=== PATIENT | female | born 1955 | race Caucasian/White ===

== ENCOUNTER → 2023-05-06 | Outpatient (CLI) | payer MEDICARE, SELFPAY ==
--- NOTE | 2023-05-06 09:14 | RAD_ITS ---
INDICATION: Low back pain potentially associated with radiculopathy EXAMINATION/TECHNIQUE: X-RAY - XR Spine Lumbar Comp W/ Bending 8Views COMPARISON: FINDINGS: VERTEBRAE: Degenerative changes with endplate spurring. Status post surgical fusion at L5-S1. No fracture. Grade 1 spondylolisthesis at L4-5. Preservation of the normal lumbar lordosis. Narrowed L4-5 and L5-S1 disc space heights. DISCS: Disc spaces are maintained. INCLUDED ABDOMEN: Included bowel gas pattern is non-obstructive. Calcified aorta. RAD/L/S Spine w Bend Min 6 Vw IMPRESSION: Degenerative and postsurgical changes of the lumbar column. Electronically Signed: Arthur Day DO at 19:58 EDT Reading Location ID and State: [facility] / [place] Tel [phone], Service support ,
[2023-05-06 09:19] LABS: Absolute Lymphocyte Count 3.14 X10^3/uL (0.83-4.51); Absolute Neutrophil Count 8.1 X10^3/uL (2.0-7.7); Basophil# 0.04 X10^3/uL; Basophil% 0.3 % (0-1); Eosinophil# 0.05 X10^3/uL; Eosinophils% 0.4 % (0-5); Hematocrit 42.4 % (37-47); Hemoglobin 13.8 g/dL (12.0-15.0); Lymphocyte # 3.14 X10^3/ul (0.83-4.51); Lymphocyte % 25.1 % (19-41); Mean Corp Hgb Conc 32.5 g/dL (32-36); Mean Corpuscular Hgb 31.8 pg (27.0-32.0); Mean Corpuscular Volume 97.7 fL (81-99); Mean Platelet Vol. 10.1 fl (6.2-12.0); Monocyte# 1.06 X10^3/uL; Monocyte% 8.5 % (0-10); NRBC Flagged by Analyzer 0 % (0-5); Neutrophil # 8.08 X10^3/uL (2.7-7.7); Neutrophil % 64.6 % (47-70); Platelet Count 411 K/mm3 (150-450); RBC Distribution Width CV 12.5 % (11.6-14.6); RBC Distribution Width SD 45.2 fl (35.1-43.9); Red Blood Count 4.34 M/mm3 (4.2-5.4); White Blood Count 12.5 K/mm3 (4.4-11.0)
[2023-05-06 09:42] LABS: Microalbumin,Random Urine 8.6 mg/L (NO RANGE EST.); Microalbumin:Creatinine Ratio 11.6 mg/g CRE (<30 mg/g CRE)
[2023-05-06 10:28] LABS: ALB/GLOB Ratio 0.9 RATIO (0.9-2.4); AST(SGOT) 16 U/L (15-37); Alanine Aminotransfer ALT/SGPT 30 U/L (13-56); Albumin, Serum 3.6 g/dL (3.2-5.0); Alkaline Phosphatase 82 U/L (45-117); Anion Gap 2 (5-15); BUN 15 mg/dL (7-18); BUN/Creat Ratio 20.9 RATIO (10-20); Calcium,Total 9.4 mg/dL (8.5-10.1); Chloride 106 mmol/L (98-107); Cholesterol 281 mg/dL (200); Creatinine, Serum 0.72 mg/dL (0.55-1.02); EST Glomerular Filtration Rate 86 mL/min (>60); Est Glom Filt Rate - Afr Amer 104 mL/min (>60); Glucose 151 mg/dL (74-106); High Density Lipoprotein 52 mg/dL; Potassium 3.8 mmol/L (3.5-5.1); Protein, Total 7.6 g/dL (6.4-8.2); Sodium Level 140 mmol/L (136-145); Thyroid Stim Hormone (TSH) 3.48 uIU/mL (0.358-3.74); Triglycerides 163 mg/dL; Very Low Density Lipoprotein 33 mg/dL (5-40)
== END | disposition home or self-care (01) ==
PROVIDERS: PCP Internal Medicine; Referring Provider Internal Medicine; Visit Provider Internal Medicine
DX: R73.09 Other abnormal glucose (principal); E78.5 Hyperlipidemia, unspecified; E03.9 Hypothyroidism, unspecified; M54.50 Low back pain, unspecified
CPT/HCPCS: 36415; 72114; 80053; 80061; 82043; 82570; 84443; 85025

== ENCOUNTER 2023-06-17 13:00 | Outpatient (RCR) | payer MEDICARE, SELFPAY ==
--- NOTE | 2023-05-22 16:04 | HP.PTEVAL ---
Patient's Visit Information Visit Information Visit Information: CHANDU TAYLOR is a 67 year old F referred to Physical Therapy by Dr. Nohelia Romero DO with a diagnosis of LBP with Radic (previous L5/S1 fusion) and L4/L5 spondy. Date of Evaluation: 05/22/23 Physical Therapist: MONIKA Segura Visit Plan Frequency: 2x /Week Duration: 2 Months Plan: 2X/ week for 8 weeks for AT for Gentle neutral spine core stability, L LE strengthening, gait training with HEP. (flexion seems to relieve her foot sx) ++++Pt is allergic to laytex Subjective Subjective: Pt is having sharp burn pain on top of L foot to the ankle and up to the L calf (calf feels like there is a vice on it). She is on Gabapetin and is sleeping a little better. It started when she was sick one night and passed out on the toilet leaning to one side and she woke up with extreme pain in the L hip. She has used the massage gun on it and gotten massages weekly. She can not walk very long. She just got back from vacation with her son and she was on the go and could not keep up. She has a golf cart on 3 acres. She can take care of her yard but at her own pace. X-ray showed DDD changes and spurs on the next level up from where she had surgery years ago. She is very active and she can go places and do things if she can sit. She did have episodes where her L foot was getting red but does not do that any more. She is sleeping with gabapetin. If she lays on her L side her foot will burn. Had surgery on the L ankle years ago. She wears a knee brace at times and she can walk better. She hangs on a cart when she is in the grocery store. Dr Romero wants to do an MRI. X-ray shows grade 1 spondylolisthesis at L4/L5 and L5/S1 is fused Pain back pain: Pain Intensity (Out of 10): 4 L ankle pain: Pain Intensity (Out of 10): 4 Objective Objective: Standing heel and toe raises: pt has decrease ROM with DF and likes to stick buttocks out. She does well with PF standing holding onto a table with balance. Gait: she has to take small steps. Bridge: able to do 3/4 normal ROM Patellar R 1+/3 and L 2+/3 LE MMT: R hip flex 12.7 and L hip flex 6.6 R knee ext 14 and L knee ext 8# R knee flex 8.4 and L 4.6 R hip abd 15.2 and L hip abd 10.2 Pt L ankle burning went away with [facility] AROM: Flexion 100% Ext 25% with increase pain Sb B 75% Rot L 50% and R 75% Balance/Special Test Scores Oswestry Low Back Score: 13 Goals Goal 1:: I HEP Goal Time Frame: 4-6 Weeks Goal 2:: Decrease back pain by 50% Goal Time Frame: 4-6 Weeks Goal 3:: Increase L LE strength (at time of eval: LE MMT: R hip flex 12.7 and L hip flex 6.6 R knee ext 14 and L knee ext 8# R knee flex 8.4 and L 4.6 R hip abd 15.2 and L hip abd 10.2) Goal Time Frame: 4-6 Weeks Goal 4:: Be able to walk with bigger steps Goal Time Frame: 4-6 Weeks Anticipated Interventions Patient/Client Instruction: Educate patient on: Condition and Plan of Care For the Purpose of:: To decrease pain, To increase ROM, To improve nutrient delivery to tissue, To improve muscle performance and motor function, To improve ability to perform ADL's, To improve performance and independence with ADL's, To decrease level of supervision to perform tasks, To improve gait and locomotor functions, To improve health of tissue, To increase flexibility/ROM, To improve balance, To improve safety with gait and To assume or resume ADL's Therapeutic Exercise to Include: Strength training, Endurance training, Body mechanics, Gait and locomotor training, Neuromotor development, In an aquatic setting, Active ROM and Dynamic Lumbar Stabilization For the Purpose of:: To decrease pain, To increase ROM, To improve nutrient delivery to tissue, To improve muscle performance and motor function, To increase tolerance to activity/condition/position, To improve performance and independence with ADL's, To improve gait and locomotor functions, To improve health of tissue, To decrease soft tissue restriction, To increase flexibility/ROM, To improve balance and To improve safety with gait Functional Training to Include: Gait training For the Purpose of:: To improve gait and locomotor functions and To improve safety with gait Text: Thank you for the opportunity to evaluate your patient. For Medicare and Medicare HMO plans, please review the plan of care and approve it. It will need to be FAXED BACK to us at [phone] for Medicare purposes. For Medicare only, by signing this I certify the plan of care. Please let me know if there are questions or concerns regarding this plan of care. Physician Signature: Date:
--- NOTE | 2023-06-17 13:32 | HP.PTDCSUM ---
Discharge Summary D/C summary: It has been my pleasure to treat CHANDU TAYLOR referred by Dr. Nohelia Romero DO, with the diagnosis of LBP with Radic (previous L5/S1 fusion) and L4/L5 spondy for a total of 7 visit(s). Discharge Date: 06/17/23 Please see the following information for a summary of their discharge status. Subjective Subjective: It helped to loosen her up and some with the pain. She is off the Gabepetin and she did not like that and finally feels that her head is back to where it was. She feels that she is ready to go on her own. She has access in a pool to do her exercises. She has a sheet of exercises. She does stretches in the morning and it helps Pain back pain: Pain Intensity (Out of 10): 3 L ankle pain: Pain Intensity (Out of 10): 4 Objective Objective/Function: LE MMT: R hip flex 14.4 and L hip flex 12.6 R knee ext 14 and L knee ext 9.4 R knee flex 10 and L 8.6 R hip abd 15.2 and L hip abd 10.2..NT Gait: pt is walking with bigger steps Goals Goal 1:: I HEP Goal Progress: Goal Met Goal 2:: Decrease back pain by 50% Goal Progress: Goal Met Goal 3:: Increase L LE strength (at time of eval: LE MMT: R hip flex 12.7 and L hip flex 6.6 R knee ext 14 and L knee ext 8# R knee flex 8.4 and L 4.6 R hip abd 15.2 and L hip abd 10.2) Goal Progress: Goal Met Goal 4:: Be able to walk with bigger steps Goal Progress: Goal Met Plan Plan: DC PT to I AT program. Pt is only mildly better. Would recommend an MRI since still having radicular sx...prior back surgery. D/C Information Discharge Comments: DC PT to I AT program and back to physician for further diagnostics or referral d/c sentence: If there are questions or concerns regarding this patient's physical therapy, please feel free to call me at [phone]. Thank you for the referral of this patient. Sincerely, Swetha Silva, MPT Balance/Gait/Functional tests Balance/Special Test Scores Oswestry Low Back Score: 19
== END 2023-06-17 14:03 | disposition home or self-care (01) ==
LOC: PT 13:00
PROVIDERS: PCP Internal Medicine; Referring Provider Internal Medicine; Visit Provider Internal Medicine
DX: M47.26 Other spondylosis with radiculopathy, lumbar region (principal); Z98.1 Arthrodesis status
CPT/HCPCS: 97113; 97161; 97530

== ENCOUNTER → 2023-12-02 | Outpatient (CLI) | payer MEDICARE, SELFPAY ==
[2023-12-02 11:01] LABS: Absolute Lymphocyte Count 1.77 X10^3/uL (0.83-4.51); Absolute Neutrophil Count 4.3 X10^3/uL (2.0-7.7); Basophil# 0.04 X10^3/uL; Basophil% 0.6 % (0-1); Eosinophil# 0.13 X10^3/uL; Eosinophils% 1.9 % (0-5); Hematocrit 42.8 % (37-47); Hemoglobin 13.8 g/dL (12.0-15.0); Lymphocyte # 1.77 X10^3/ul (0.83-4.51); Lymphocyte % 25.7 % (19-41); Mean Corp Hgb Conc 32.2 g/dL (32-36); Mean Corpuscular Hgb 31.9 pg (27.0-32.0); Mean Corpuscular Volume 98.8 fL (81-99); Mean Platelet Vol. 10.8 fl (6.2-12.0); Monocyte# 0.64 X10^3/uL; Monocyte% 9.3 % (0-10); NRBC Flagged by Analyzer 0 % (0-5); Neutrophil # 4.28 X10^3/uL (2.7-7.7); Neutrophil % 62.2 % (47-70); Platelet Count 426 K/mm3 (150-450); RBC Distribution Width CV 12.2 % (11.6-14.6); RBC Distribution Width SD 44.5 fl (35.1-43.9); Red Blood Count 4.33 M/mm3 (4.2-5.4); White Blood Count 6.9 K/mm3 (4.4-11.0)
[2023-12-02 11:49] LABS: Microalbumin,Random Urine 8.1 mg/L (NO RANGE EST.); Microalbumin:Creatinine Ratio 10.2 mg/g CRE (<30 mg/g CRE)
[2023-12-02 11:56] LABS: ALB/GLOB Ratio 1.1 RATIO (0.9-2.4); AST(SGOT) 11 U/L (15-37); Alanine Aminotransfer ALT/SGPT 19 U/L (13-56); Albumin, Serum 3.7 g/dL (3.2-5.0); Alkaline Phosphatase 101 U/L (45-117); Anion Gap 3 (5-15); BUN 9 mg/dL (7-18); BUN/Creat Ratio 15.1 RATIO (10-20); Calcium,Total 9.5 mg/dL (8.5-10.1); Chloride 109 mmol/L (98-107); Cholesterol 194 mg/dL (200); EST Glomerular Filtration Rate 106 mL/min (>60); Est Glom Filt Rate - Afr Amer 128 mL/min (>60); Globulin 3.4 g/dL (2.2-4.2); Glucose 99 mg/dL (74-106); High Density Lipoprotein 42 mg/dL; Potassium 4.3 mmol/L (3.5-5.1); Protein, Total 7.1 g/dL (6.4-8.2); Sodium Level 141 mmol/L (136-145); Thyroid Stim Hormone (TSH) 3.32 uIU/mL (0.358-3.74); Triglycerides 119 mg/dL; Very Low Density Lipoprotein 24 mg/dL (5-40)
--- OUTSIDE RECORDS SUMMARY | 2023-12-02 16:10 | XMS RPT_ITS | CCD ---
Author Name Unknown Address [address] [facility] [address] [place] [address] Organization [facility] Care Team Providers Care Extension Work Instructor Name Role Phone Unavailable Unavailable Unavailable Gen, Alcon Orchanian Unavailable Milagros Holder Unavailable Unavailable Milagros Holder Unavailable Unavailable Gen, Alcon Unavailable Unavailable Gen, Alcon Unavailable Unavailable Gen, Alcon Unavailable Unavailable Gen, Alcon Unavailable Unavailable Gen, Alcon Orchanian Primary Care Provider Kianna Daley Primary Care Provider Kianna Daley Primary Care Provider [phone] BismarckTayler Primary Care Provider [phone] [place] Tayler MONET Primary Care Provider [place] Tayler MONET Primary Care Provider ALEXIA, SHAISTA Referring Unavailable ALEXIA, SHAISTA Primary Care Unavailable ALEXIA, SHAISTA Attending Unavailable ALEXIA, SHAISTA Admitting Unavailable ALEXIA, SHAISTA Primary Care Unavailable FLAGLER BEACHTAYELR Admitting Unavailable FLAGLER BEACHTAYLER Primary Care Unavailable Gen, Alcon Orchanian Unavailable Unava ilable Jairo, Shayla Unavailable Unavailable ALEXIA, SHAISTA Attending Unavailable ALEXIA, SHAISTA Primary Care Unavailable ALEXIA, SHAISTA Attending Unavailable ALEXIA, SHAISTA Primary Care Unavailable ALEXIA, SHAISTA Attending Unavailable FLAGLER BEACHTAYLER Primary Care Unavailable ALEXIA, SHAISTA Primary Care Unavailable ALEXIA, SHAISTA Attending Unavailable ALEXIA, SHAISTA Primary Care Unavailable ALEXIA, SHAISTA Attending Unavailable ManElyse trinh Unavailable Unavailable Ms. Elyse Delgado Attending Unavail Dr. Alcon Moore Primary Care U Dr[facility]con Mckay [facility]la Gill Attending Unavailable Nohelia Romero DO Unavailable Heather AMADOR Nohelia Unavailable [phone] Physical Therapy, [facility] Unavailable [phone] Yovany MOTOR BLOCK MECHANIC, Dar Unavailable Unavailable Fast DO, Ginny A Unavailable Matteo, Sarah Unavailable Unavailable Unavailable Unavailable Allergies Allergy Classification Reported Allergen(s) Allergy Type Date of Onset Reaction(s) Facility Angiotensin Converting Enzyme (TEQUILA) Inhibitors (2 sources) Lisinopril Drug Allergy 02-14-20 21 [facility] Work Phone: Aspirin (2 sources) Aspirin Drug Allergy 03-24-20 18 Shortness Of Breath, Itching [facility] Latex (2 sources) Latex Substance Allergy 03-24-20 18 [facility] Macrolides (antibiotic) (2 sources) Erythromycin Drug Allergy 03-24-[address] [facility] NITROFURANTOIN, MACROCRYSTALS / Nitrofurantoin, Monohydrate (2 sources) NITROFURANTOIN, MACROCRYSTALS / Nitrofurantoin, Monohydrate Drug Allergy 12-07-19 20 Rash [facility] NSAIDs (4 sources) Ibuprofen Drug Allergy 03-24-20 18 Swelling [facility] Opioid Agonists (4 sources) Meperidine Drug Allergy 03-24-20 18 GI Intolerance, Shortness Of Breath, Itching, Rash [facility] Penicillins (antibiotic) (2 sources) Amoxicillin Drug Allergy 03-24-[address] [facility] (20 sources) amoxicillin; Translations: [AMOXICILLIN] Drug Allergy 03-24-20 18 [facility] (20 sources) aspirin; Translations: [ASPIRIN] Drug Allergy 03-24-20 18 Shortness Of Breath, Itching [facility] (20 sources) erythromycin; Translations: [ERYTHROMYCIN BASE] Drug Allergy 03-24-20 18 [facility] (20 sources) HYDROmorphone; Translations: [HYDROMORPHONE] Drug Allergy 03-24-20 18 Shortness Of Breath, Itching, Rash [facility] (20 sources) ibuprofen; Translations: [IBUPROFEN] Drug Allergy 03-24-20 18 Swelling [facility] (20 sources) ketorolac; Translations: [KETOROLAC] Drug Allergy 03-24-20 18 [facility] (20 sources) Latex; Translations: [LATEX] Propensity to adverse reactions to drug 03-24-20 Rash [facility] (20 sources) meperidine; Translations: [MEPERIDINE] Drug Allergy 03-24-20 GI Intolerance [facility] (20 sources) NITROFURANTOIN, MACROCRYSTALS / Nitrofurantoin, Monohydrate; Translations: [NITROFURANTOIN MONOHYD/M-CRYST] Drug Allergy 12-07-19 20 [facility] (15 sources) Lisinopril; Translations: [LISINOPRIL] Drug Allergy 02-14-20 [facility] Work Phone: (6 sources) Other; Translations: [OTHER] Propensity to adverse reactions 09-25-20 Swelling [facility] (4 sources) olmesartan; Translations: [OLMESARTAN] Drug Allergy 10-16-19 [facility] (4 sources) Adhesive Tape-Silicones; Translations: [ADHESIVE TAPE-SILICONES] Propensity to adverse reactions to drug 09-05-20 Dermatitis, Itching, Rash, Swelling [facility] (4 sources) Fluoride; Translations: [FLUORIDE] Propensity to adverse reactions to drug 10-16-19 Itching, Other (See Comments), Swelling [facility] (3 sources) Losartan; Translations: [LOSARTAN] Drug Allergy 06-03-20 [facility] (2 sources) Clindamycin Drug Allergy Unknown [facility] (2 sources) HY[facility]Omorphone [facility] (2 sources) Meperidine Drug Allergy Wheezing, Unknown [facility] (2 sources) Morphine [facility]ergy [facility] (2 sources) Pentazocine Drug Allergy Unknown [facility] (2 sources) traMADol Drug Allergy Unknown [facility] (1 source) Gluten Hives [facility] (7 sources) Egg white; Translations: [Egg White] Allergy to substance (finding) [facility] Work Phone: (7 sources) Ketorolac Drug Allergy [facility] Work Phone: (7 sources) Pentazocine Drug Allergy [facility] Work Phone: (7 sources) Shellfish; Translations: [Shellfish] Allergy to substance (finding) [facility] Work Phone: (7 sources) Erythromycins; Translations: [Erythromycins] Allergy to substance (finding) [facility] Work Phone: (7 sources) Iodinated Contrast; Translations: [Iodinated Contrast] Allergy to substance (finding) [facility] Work Phone: (14 sources) Morphine Derivatives; Translations: [Morphine Derivatives] Allergy to substance (finding) [facility]; [facility] Work Phone: Medications Current Medications Medication Drug Class(es) Dates Sig (Normalized) Sig (Original) acetaminophen 325 mg oral tablet (20 sources) take 2 tablets by mouth every six hours as needed for pain acetaminophen (TYLENOL) 325 MG tablet Take 650 mg by mouth every 6 (six) hours as needed for pain. 0 Active albuterol 90 mcg/actuation inhaler (18 sources) Start: 12-06-2020 take 2 puff(s) by inhalation every six hours as needed for wheezing albuterol 90 mcg/actuation inhaler Indications: Asthma, unspecified asthma severity, unspecified whether complicated, unspecified whether persistent Inhale 2 (two) puffs every 6 (six) hours as needed for wheezing . 1 Inhaler 0 12/06/2020 Active Completed/Discontinued Medications Medication Drug Class(es) Dates Sig (Normalized) Sig (Original) acetaminophen 325 mg / HYDROcodone bitartrate 5 mg oral tablet (7 sources) Opioid Agonist Start: 11-14-2006 End: 08-20-2007 take 1-2 tablets by mouth every four hours as needed HYDROCODONE-ACETA MINOPHEN, 5-325MG (Oral Tablet) 1-2 Tablet Q 4hr/PRN for 0 days Quantity: 60 {Tablet} Refills: 0 Ordered: 14-Nov-2006 Amanda Schultz RN Start : 14-Nov-2006 End : 20-Aug-2007 Inactive 200 actuat albuterol 0.09 mg/actuat dry powder inhaler (20 sources) beta2-Adrenergic Agonist Start: 06-12-2023 take 2 puff(s) by inhalation every four hours as needed albuterol sulfate 90 mcg/actuation inhalation Aerosol Powder, Breath Activated 2 (two) puffs q4hr prn for 0 days Quantity: 1 {Unspecified} Refills: 0 Ordered: 12-Jun-2023 Heather AMADOR Nohelia Heather AMADOR Nohelia Start : 12-Jun-2023 Active Comments: dispense one iinhaler Problems Active Problems Problem Classification Problem Date Documented Da te Episodic/Chronic Abdominal pain (20 sources) Pain in pelvis; Translations: [Acute abdominal pain] Resolved: 05-02-2023 05-02-2023 Episodic Allergic reactions (10 sources) Allergy status to penicillin; Translations: [Latex allergy status] Onset: 08-22-2022 06-12-2023 Episodic Anxiety disorders (14 sources) Anxiety; Translations: [Anxiety] 05-02-2023 Chronic Past or Other Problems Problem Classification Problem Date Documented Date Episodic/Chronic Acute bronchitis (3 sources) Acute bronchitis; Translations: [Acute bronchitis] Onset: 08-22-2022 08-22-2022 Episodic Headache; including migraine (20 sources) Headache; Translations: [Headache] Onset: 12-07-2019 12-07-2019 Episodic Other aftercare (1 source) Other detention (current) drug therapy; Translations: [Other intermediate manager (current) drug therapy] Onset: 08-22-2022 Episodic Other connective tissue disease (20 sources) Calcific tendinitis; Translations: [Calcific tendinitis of left shoulder] Onset: 04-09-2018 04-09-2018 Episodic Other connective tissue disease (11 sources) Calcific tendinitis of left shoulder; Translations: [Calcific tendinitis of left shoulder] Onset: 04-09-2018 04-09-2018 Episodic Other ear and sense organ disorders (20 sources) Bilateral tinnitus; Translations: [Tinnitus, bilateral] Onset: 07-20-2019 07-20-2019 Episodic Other ear and sense organ disorders (13 sources) Impacted cerumen of bilateral ears; Translations: [Impacted cerumen, bilateral] Onset: 07-20-2019 07-20-2019 Episodic Other ear and sense organ disorders (1 source) Unspecified acute noninfective otitis externa, bilateral; Translations: [Unspecified acute noninfective otitis externa, bilateral] Onset: 08-22-2022 Episodic Other ear and sense organ disorders (1 source) Otalgia, bilateral; Translations: [Otalgia, bilateral] Onset: 08-22-2022 Episodic Other inflammatory condition of skin (20 sources) Itching of ear; Translations: [Pruritus, unspecified] Onset: 07-20-2019 Resolved: 10-16-2021 07-20-2019 Episodic Other injuries and conditions due to external causes (2 sources) History of falling; Translations: [History of falling] Onset: 11-14-2021 Episodic Other non-traumatic joint disorders (20 sources) Knee pain; Translations: [Pain in unspecified knee] Onset: 06-29-2020 06-29-2020 Episodic Other non-traumatic joint disorders (20 sources) Acute ankle pain; Translations: [Pain in left ankle and joints of left foot] Onset: 06-29-2020 Resolved: 10-16-2021 06-29-2020 Episodic Other skin disorders (20 sources) Excessive sweating; Translations: [Generalized hyperhidrosis] Onset: 04-09-2018 04-09-2018 Episodic Other upper respiratory disease (1 source) Other specified disorders of nose and nasal sinuses; Translations: [Other specified disorders of nose and nasal sinuses] Onset: 08-22-2022 Episodic Other upper respiratory infections (4 sources) Acute maxillary sinusitis; Translations: [Acute maxillary sinusitis, unspecified] Onset: 08-22-2022 Episodic Residual codes; unclassified (1 source) Immunization not carried out for unspecified reason; Translations: [Immunization not carried out for unspecified reason] Onset: 08-22-2022 Episodic Unclassified (18 sources) Patient encounter status; Translations: [Well female exam with routine gynecological exam] Onset: 04-03-2020 Resolved: 06-29-2020 04-03-2020 Unclassified (14 sources) Unspecified Diagnosis Results Test Name Value Interpretation Reference Range Facil ity Vital Signs Date Time Vital Sign Value Performing Clinician Facility 06-12-2023 13:37-0400 Body height 165.1 cm Dar Pedroza LPN [facility] Work Phone: 06-12-2023 13:37-0400 Body mass index (BMI) [Ratio] 29.18 kg/m2 [facility] Work Phone: 06-12-2023 13:37-0400 Body surface area Derived from formula 1.87 m2 [facility] Work Phone: 06-12-2023 13:37-0400 Body temperature 95.7 [degF] [facility] Work Phone: 06-12-2023 13:37-0400 Body weight 79.55 kg [facility] Work Phone: 06-12-2023 13:37-0400 Diastolic blood pressure 76 mm[Hg] [facility] Work Phone: Encounters Encounter Date Encounter Type Care Provider Facility Start: 06-12-2023 Review Nohelia michaels DO Work Phone: [facility] Start: 06-12-2023 End: 06-13-2023 Office outpatient visit 15 minutes Nohelia Romero DO Work Phone: [facility] Start: 05-02-2023 End: 05-02-2023 Office outpatient new 45 minutes Nohelia Romero DO Work Phone: [facility] Start: 03-13-2023 End: 03-13-2023 Emergency department patient visit Elyse Delgado [facility] Start: 10-22-2022 ambulatory SHAISTA ALEXIA [facility] Start: 09-12-2022 ambulatory SHAISTA ALEXIA [facility] Start: 08-22-2022 End: 08-22-2022 Emergency department patient visit Shayla Gill [facility] Start: 06-03-2022 End: 06-03-2022 ambulatory [facility] Start: 05-30-2022 End: 05-31-2022 ambulatory SHAISTA [facility] Start: 05-22-2022 End: 05-26-2022 ambulatory SHAISTA HALE [facility] Start: 05-22-2022 End: 05-22-2022 ambulatory SHAISTA HALE [facility] Start: 11-14-2021 End: 11-14-2021 ambulatory SHAISTA HALE [facility] Start: 11-14-2021 End: 11-14-2021 Office outpatient visit 15 minutes Shaista Hale MD Work Phone: [facility] Procedures Date Procedure Procedure Detail Performing Clinician Start: 06-17-2023 End: 06-17-2023 PT D/C Summary (1) Procedure Note: See Note; NOTES: [facility] Physical Therapy [facility] [address] [place] [address] / REHABILITATION SERVICES DISCHARGE SUMMARY MR#: [id number] Acct: [id number] Name: VILMA CARRERA Rep #: [id number] : 1955 67 From: Swetha FRANK Referring Dr.: Dr. Nohelia Romero DO Status: REG R Insurance: [facility] SELF PAY INSURANCE Discharge Summary D/C summary: It has been my pleasure to treat VILMA CARRERA referred by Dr. Nohelia Romero DO, with the diagnosis of LBP with Radic (previous L5/S1 fusion) and L4/L5 spondy for a total of 7 visit(s). Discharge Date: 06/17/23 Please see the following information for a summary of their discharge status. Subjective Subjective: It helped to loosen her up and some with the pain. She is off the Gabepetin and she did not like that and finally feels that her head is back to where it was. She feels that she is ready to go on her own. She has access in a pool to do her exercises. She has a sheet of exercises. She does stretches in the morning and it helps Pain back pain: Pain Intensity (Out of 10): 3 L ankle pain: Pain Intensity (Out of 10): 4 Objective Objective/Function: LE MMT: R hip flex 14.4 and L hip flex 12.6 R knee ext 14 and L knee ext 9.4 R knee flex 10 and L 8.6 R hip abd 15.2 and L hip abd 10.2..NT Gait: pt is walking with bigger steps Goals Goal 1:: I HEP Goal Progress: Goal Met Goal 2:: Decrease back pain by 50% Goal Progress: Goal Met Goal 3:: Increase L LE strength (at time of eval: LE MMT: R hip flex 12.7 and L hip flex 6.6 R knee ext 14 and L knee ext 8# R knee flex 8.4 and L 4.6 R hip abd 15.2 and L hip abd 10.2) Goal Progress: Goal Met Goal 4:: Be able to walk with bigger steps Goal Progress: Goal Met Plan Plan: DC PT to I AT program. Pt is only mildly better. Would recommend an MRI since still having radicular sx...prior back surgery. D/C Information Discharge Comments: DC PT to I AT program and back to physician for further diagnostics or referral d/c sentence: If there are questions or concerns regarding this patient's physical therapy, please feel free to call me at [phone]. Thank you for the referral of this patient. Sincerely, MONIKA Segura Balance/Gait/Functional tests Balance/Special Test Scores Oswestry Low Back Score: 19 <Electronically signed by Swetha FRANK> 06/17/23 1332 CC: Dr. Nohelia Romero DO Signed oNhelia Romero DO Work Phone: Start: 05-22-2023 End: 05-22-2023 Inital Evaluation (1) - PT Procedure Note: See Note; NOTES: [facility] Physical [facility] [address] [place] [address]. [address] [place] [address] / REHABILITATION SERVICES INITIAL EVALUATION MR#: [id number] Acct: [id number] Name: VILMA CARRERA Rep #: [id number] : 1955 67 From: Swetha FRANK Referring Dr.: Dr. Nohelia Romero DO Status: REG RCR Insurance: [employer] [facility] SELF PAY INSURANCE Patient's Visit Information Visit Information Visit Information: VILMA CARRERA is a 67 year old F referred to Physical Therapy by Dr. Nohelia Romero DO with a diagnosis of LBP with Radic (previous L5/S1 fusion) and L4/L5 spondy. Date of Evaluation: 05/22/23 Physical Therapist: MONIKA Segura Visit Plan Frequency: 2x /Week Duration: 2 Months Plan: 2X/ week for 8 weeks for AT for Gentle neutral spine core stability, L LE strengthening, gait training with HEP. (flexion seems to relieve her foot sx) ++++Pt is allergic to laytex Subjective Subjective: Pt is having sharp burn pain on top of L foot to the ankle and up to the L calf (calf feels like there is a vice on it). She is on Gabapetin and is sleeping a little better. It started when she was sick one night and passed out on the toilet leaning to one side and she woke up with extreme pain in the L hip. She has used the massage gun on it and gotten massages weekly. She can not walk very long. She just got back from vacation with her son and she was on the go and could not keep up. She has a golf cart on 3 acres. She can take care of her yard but at her own pace. X-ray showed DDD changes and spurs on the next level up from where she had surgery years ago. She is very active and she can go places and do things if she can sit. She did have episodes where her L foot was getting red but does not do that any more. She is sleeping with gabapetin. If she lays on her L side her foot will burn. Had surgery on the L ankle years ago. She wears a knee brace at times and she can walk better. She hangs on a cart when she is in the grocery store. Dr Romero wants to do an MRI. X-ray shows grade 1 spondylolisthesis at L4/L5 and L5/S1 is fused Pain back pain: Pain Intensity (Out of 10): 4 L ankle pain: Pain Intensity (Out of 10): 4 Objective Objective: Standing heel and toe raises: pt has decrease ROM with DF and likes to stick buttocks out. She does well with PF standing holding onto a table with balance. Gait: she has to take small steps. Bridge: able to do 3/4 normal ROM Patellar R 1+/3 and L 2+/3 LE MMT: R hip flex 12.7 and L hip flex 6.6 R knee ext 14 and L knee ext 8# R knee flex 8.4 and L 4.6 R hip abd 15.2 and L hip abd 10.2 Pt L ankle burning went away with [facility] Trunk AROM: Flexion 100% Ext 25% with increase pain Sb B 75% Rot L 50% and R 75% Balance/Special Test Scores Oswestry Low Back Score: 13 Goals Goal 1:: I HEP Goal Time Frame: 4-6 Weeks Goal 2:: Decrease back pain by 50% Goal Time Frame: 4-6 Weeks Goal 3:: Increase L LE strength (at time of eval: LE MMT: R hip flex 12.7 and L hip flex 6.6 R knee ext 14 and L knee ext 8# R knee flex 8.4 and L 4.6 R hip abd 15.2 and L hip abd 10.2) Goal Time Frame: 4-6 Weeks Goal 4:: Be able to walk with bigger steps Goal Time Frame: 4-6 Weeks Anticipated Interventions Patient/Client Instruction: Educate patient on: Condition and Plan of Care For the Purpose of:: To decrease pain, To increase ROM, To improve nutrient delivery to tissue, To improve muscle performance and motor function, To improve ability to perform ADL's, To improve performance and independence with ADL's, To decrease level of supervision to perform tasks, To improve gait and locomotor functions, To improve health of tissue, To increase flexibility/ROM, To improve balance, To improve safety with gait and To assume or resume ADL's Therapeutic Exercise to Include: Strength training, Endurance training, Body mechanics, Gait and locomotor training, Neuromotor development, In an aquatic setting , Active ROM and Dynamic Lumbar Stabilization For the Purpose of:: To decrease pain, To increase ROM, To improve nutrient delivery to tissue, To improve muscle performance and motor function, To increase tolerance to activity/condition/position , To improve performance and independence with ADL's, To improve gait and locomotor functions, To improve health of tissue, To decrease soft tissue restriction, To increase flexibility/ROM, To improve balance and To improve safety with gait Functional Training to Include: Gait training For the Purpose of:: To improve gait and locomotor functions and To improve safety with gait Text: Thank you for the opportunity to evaluate your patient. For Medicare and Medicare HMO plans, please review the plan of care and approve it. It will need to be FAXED BACK to us at [phone] for Medicare purposes. For Medicare only, by signing this I certify the plan of care. Please let me know if there are questions or concerns regarding this plan of care. Physician Signature: Date: <Electronically signed by Swetha Silva MPT> 05/22/23 0734 CC: Dr. Nohelia Romero DO Signed Nohelia Romero DO Work Phone: Start: 05-06-2023 End: 05-06-2023 L/S Spine w Bend Min 6 Vw Procedure Note: See Note; NOTES: [facility] Imaging Services [address] [place] [address] L/S Spine w Bend Min 6 Vw MR#: [id number] Acct: [id number] Name: VILMA CARRERA Rep #: [id number] : 1955 F 67 From: Arthur Day DO PCP: Dr. Nohelia Romero DO Status: REG CLI Study: L/S Spine w Bend Min 6 Vw Date of Exam: Exam# [id number] Ordering Dr: Nohelia Romero DO INDICATION: Low back pain potentially associated with radiculopathy EXAMINATION/TECHNIQUE: X-RAY - XR Spine Lumbar Comp W/ Bending 8Views COMPARISON: FINDINGS: VERTEBRAE: Degenerative changes with endplate spurring. Status post surgical fusion at L5-S1. No fracture. Grade 1 spondylolisthesis at L4-5. Preservation of the normal lumbar lordosis. Narrowed L4-5 and L5-S1 disc space heights. DISCS: Disc spaces are maintained. INCLUDED ABDOMEN: Included bowel gas pattern is non-obstructive. Calcified aorta. RAD/L/S Spine w Bend Min 6 Vw IMPRESSION: Degenerative and postsurgical changes of the lumbar column. Electronically Signed: Arthur Day DO at 19:58 EDT , CC: Dr. Nohelia Romero DO Weekend Anchor: Signed Nohelia Romero DO Work Phone: Start: 02-13-2021 Adult depression screening assessment Tayler Lazaro CNP Work Phone: Start: 01-11-2021 Urinalysis macro (dipstick) panel - Urine Tayler Lazaro Work Phone: Start: 01-11-2021 Bacteria identified in Unspecified specimen by Aerobe culture Tayler Lazaro Work Phone: Start: 06-30-2020 End: 06-30-2020 X-ray of left foot Kianna Daley Work Phone: Start: 06-30-2020 X-ray of left ankle Kianna Daley Work Phone: Start: 06-22-2020 Bone density scan Kianna Daley Work Phone: Start: 05-09-2020 Transvaginal ultrasonography of pelvis Kianna Daley Work Phone: Start: 04-03-2020 Urnls dip stick/tablet rgnt auto w/o microscopy Kianna Daley Work Phone: Start: 04-03-2020 Adult depression screening assessment Kianna Daley Start: 07-20-2019 EAR CERUMEN REMOVAL Tao Hung Work Phone: Start: 12-30-2014 End: 12-30-2014 Bilat Scrn Digital AND CAD Procedure Note: See Note; NOTES: [facility] Imaging Services [address] [place] [address] Breast Imaging Report MR#: [id number] Acct: [id number] Name: VILMA CARRERA Rep #: [id number] : 1955 F 59 From: Gorge Edward MD PCP: Nohelia Romero DO Status: REG CLI Study: Bilat Scrn Digital AND CAD Date of Exam: 12/30/14 Exam# [id number] Ordering Dr: ALCON QUINTANILLA MAMMOGRAPHY - BILATERAL SCREENING REASON FOR EXAM: Female, 59 years old. Routine annual screening examination. PERTINENT HISTORY: Non-contributory. TECHNIQUE: Digital examination. Mediolateral oblique (MLO) and craniocaudad (CC) views of both breasts were obtained. CAD: CAD was performed on this study. COMPARISON: Comparison is made with prior study dated March 15, 2011 and February 08, 2010. FINDINGS: Breast Composition: There are scattered areas of fibroglandular density. There are no dominant masses or suspicious calcifications. No other significant abnormalities are identified. There has been no significant change since the prior study. IMPRESSION: Stable bilateral screening mammogram. Yearly follow-up recommended. (A) ASSESSMENT CATEGORY: BIRADS Category 2: Benign. A letter regarding these results will be sent to the patient by the facility within 30 days. Approximately 10% of breast cancers are not detected by mammography. A normal mammogram should not delay biopsy of a clinically suspicious abnormality. Electronically Signed: Gorge Edward MD at 13:56 EDT Tel [phone], Service support [phone], CC: Nohelia Romero DO; ALCON QUINTANILLA Weekend Anchor: Signed Nohelia Romero DO Work Phone: Plan of Treatment Date Care Activity Detail Author Start: 06-12-2023 Blood count manual cell count each CBC with auto diff (05261) [facility]; [facility] Work Phone: Start: 06-12-2023 Procedure Education Eprescribed prescriptions (G8553) [facility]; [facility] Work Phone: Start: 06-12-2023 Provider Instructions for Treatment [facility]; [facility] Work Phone: Start: 05-02-2023 Assay of thyroid stimulating hormone tsh TSH (THYROID STIMULATING HORMONE) ([id number]) [facility]; [facility] Work Phone: Start: 05-02-2023 Urine albumin quantitative MICROALBUMIN: CREATININE RATIO (38358) AND (50821) [facility]; [facility] Work Phone: Start: 05-02-2023 Comprehensive metabolic panel METABOLIC PANEL, COMPREHENSIVE (29083) [facility]; [facility] Work Phone: Start: 05-02-2023 Lipid panel LIPID PANEL (92259) [facility]; [facility] Work Phone: Start: 05-02-2023 Blood count complete auto&auto difrntl wbc CBC with auto diff ([id number]) [facility]; [facility] Work Phone: Start: 05-02-2023 Procedure Education Eprescribed prescriptions (G8553) [facility]; [facility] Work Phone: Start: 05-02-2023 Provider Instructions for Treatment [facility]; [facility] Work Phone: Start: 11-14-2022 Fall risk assessment Falls Risk Assessment [facility] Start: 10-16-2022 COVID-19 Vaccine (1) COVID-19 Vaccine (1) [facility] Immunizations Immunization Date Immunization Notes Care Provider Kaykay horowitz 02-23-2009 tetanus toxoid, reduced diphtheria toxoid, and acellular pertussis vaccine, adsorbed Nohelia Heather DO Work Phone: [facility]; [facility] Work Phone: Payers Date Payer Category Payer Medicare [employer] MANAGED [place] D[place] AETNA MEDICARE PLAN (HMO) xxxxxxxx 2018-Present xxxxxxxx [id number] 2018 Medicare [employer] MANAGED [place] DICARE AETNA MEDICARE PLAN (HMO) xxxxxxxxxxxx 2018-Present xxxxxxxxxxxx [id number] 2018 Medicare [id number] 2018 Medicare [employer] MANAGED [place] DICARE AETNA MEDICARE PLAN (HMO) [id number] 2018-Present [phone] [facility] [id number] [place] [address] [id number] 2018 Medicare [id number] 2018 Unknown [id number] 1955 Unknown [id number] 1953 Unknown [id number]. 1953 Unknown [id number] 1953 Unknown [id number]. 1953 Unknown [id number] 1953 Unknown [id number]. 1953 Unknown [id number] 1953 Unknown [id number] 1953 Unknown [id number] 9 1955 Unknown [id number] 9 Unknown Social History Date Type Detail Facility Tobacco smoking status ORIS Unknown if ev er smoked [facility] Start: 1955 Sex Assigned At Not on file [facility] Start: 03-24-2018 End: 04-09-2018 Tobacco smoking status NHIS Never smoker [facility] Start: 06-24-2019 End: 11-14-2021 Alcohol intake Current drinker of alcohol (finding) [facility] Start: 04-09-2018 Alcohol Comment nightly [facility] Exposure to SARS-CoV -2 (event) Not sure [facility] Start: 03-24-2018 End: 06-22-2020 Tobacco use and exposure Never used [facility] Start: 02-18-2021 End: 11-14-2021 Alcohol intake [facility] Clinical Notes 02-13-2021 to 11-14-2021 Addendum Note - Shaista Hale MD - 11/14/2021 3:17 PM ESTAssessment & Plan Note - Shaista Hale MD - 11/14/2021 3:10 PM Jose Hale MD - 11/14/2021 2:29 PM ESTPatient Instructions Note Date & Type Note Facility 11-14-2021 Miscellaneous Notes Addended by: SHAISTA HALE on: 11/14/2021 03:17 PM Modules accepted: Orders Associated Problem(s): Generalized rash Likely allergic reaction -advised to take zyrtec 40mg for 5 days to help with itching Prednisone X5 days prescribed Follow up if symptoms do not improve ADDENDUM: States she began taking losartan 2 weeks ago. Advised patient to discontinue medication and we will send in a new one. 11/14/2021 3:16 PM documented in this encounter [facility] 11-14-2021 History of Presen t illness Narrative Subjective Patient ID: Vilma aCrrera is a 66 y.o. female. Chief Complaint Patient presents with Allergic Reaction HPI Vilma Carrera is a 66 y.o. female with a PMHx of mild intermittent asthma, fibromyalgia, hypothyroidism, hyperlipidemia, IBS, history of seasonal allergies presenting for generalized itching and rash This is a new complaint. The current episode started in the past 1 week(s). The problem has has improved in some ways and worsened in others. Associated symptoms include: itching and rash .Pertinent negatives include: no wheezing, cough, shortness of breath, difficulty swallowing, tongue swelling, no blurry vision or discharge. She states she previously had allergic reactions like this before but she has never had rash on her face especially near her lower eyelids. She does endorse having lower eyelid swelling. they have tried zyrtec and ice packs on lower eyelids . The treatment provided minimal relief. She states she was getting a massage last week and that is when her symptoms began initially she had symptoms on her neck and in her groin area. Her symptoms in her groin area resolved but she continues to have itching and rash near her neck and 2 days ago she developed itching and rash on her face. She states she has washed her clothes in all-natural detergent. She is not sure if she was exposed to something or ate something that could have caused her allergic reaction. She has a history of oral allergy syndrome when she was tested by ENT a few years ago. ADDENDUM: patient called clinic back and stated she forgot to mention that she was taking losartan and this was started a few weeks ago as well Discussed w/ MA to tell patient that she should stop taking losartan and we will send in a new medication for her blood pressure. 11/14/2021 3:17 PM All pertinent positives and negatives are documented in ROS Patient's medications, allergies, past medical history, surgical history history, family history, social history were reviewed. Spent more than 15 minutes with patient, coordinating patient care, including reviewing charts and counseling patient. 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 Herniated disc, cervical 1998 Hyperlipidemia Hypothyroidism 11/25/2014 IBS (irritable bowel syndrome) Impetigo 11/25/2014 Ovarian cyst 1970 Shingles Past Surgical History: Procedure Laterality Date LAMINECTOMY 1998 Family History Problem Relation Age of Onset Clotting disorder Mother Esophageal cancer Father Nephrolithiasis Sister Heart attack Other Allergies Other Hypothyroidism Other Diabetes Other Osteoporosis Neg Hx Social History Tobacco Use Smoking status: Never Smoker Smokeless tobacco: Never Used Vaping Use Vaping Use: Never used Substance Use Topics Alcohol use: Yes Alcohol/week: 1.0 standard drink Types: 1 Standard drinks or equivalent per week Comment: nightly Drug use: No Allergies Allergen Reactions Aspirin Shortness Of Breath and Itching HYPOTENSION REACTION Dilaudid [Hydromorphone] Shortness Of Breath, Itching and Rash Amoxicillin Hives Demerol [Meperidine] GI Intolerance Erythromycin Base Hives Fluoride Itching, Other (See Comments) and Swelling Ibuprofen Swelling Latex Lisinopril Cough Other Swelling Food dyes Toradol [Ketorolac] HYPOTENSION Adhesive Tape-Silicones Dermatitis, Itching, Rash and Swelling Benicar [Olmesartan] Rash Macrobid [Nitrofurantoin Monohyd/M-Cryst] Rash Patient's Medications New Prescriptions HYDROCHLOROTHIAZIDE (HYDRODIURIL) 25 MG TABLET Take 1 (one) tablet (25 mg total) by mouth daily . PREDNISONE (DELTASONE) 20 MG TABLET Take 1 (one) tablet (20 mg total) by mouth daily for 5 days . Previous Medications ACETAMINOPHEN (TYLENOL) 325 MG TABLET Take 650 mg by mouth every 6 (six) hours as needed for pain. ALBUTEROL 90 MCG/ACTUATION INHALER Inhale 2 (two) puffs every 6 (six) hours as needed for wheezing . CHOLECALCIFEROL, VITAMIN D3, (VITAMIN D3 ORAL) Take 1,000 mg by mouth daily . COENZYME Q10 (CO Q-10) 100 MG CAPSULE Take 100 mg by mouth daily. MAGNESIUM 250 MG TAB Take by mouth . MONTELUKAST (SINGULAIR) 10 MG TABLET Take 1 (one) tablet (10 mg total) by mouth nightly . S-ADENOSYLMETHIONINE (MARISOL-E, ENTERIC COATED,) 200 MG TBEC Take 1 tablet by mouth 2 (two) times a day. SYNTHROID 88 MCG TABLET Take 1 (one) tablet (88 mcg total) by mouth daily AND 2 (two) tablets (176 mcg total) weekly at bedtime. TRIAMCINOLONE (KENALOG) 0.1 % CREAM Apply topically 2 (two) times a day as needed . Modified Medications No medications on file Discontinued Medications LOSARTAN (COZAAR) 25 MG TABLET Take 1 (one) tablet (25 mg total) by mouth daily . Review of Systems Constitutional: Negative for chills, fatigue and fever. HENT: Negative for congestion, facial swelling, postnasal drip, sore throat and trouble swallowing. Eyes: Positive for photophobia and redness. Negative for pain, discharge, itching and visual disturbance. Respiratory: Negative for cough, chest tightness, shortness of breath and wheezing. Cardiovascular: Negative for chest pain. Skin: Positive for rash. itching Neurological: Negative for headaches. Objective Vitals: 11/14/21 1409 11/14/21 1413 BP: (!) 179/85 (!) 160/100 BP Location: Left arm Left arm Patient Position: Sitting Sitting BP Cuff Size: X-large Adult X-large Adult Pulse: (!) 101 (!) 102 Resp: 16 Temp: 97.5 F (36.4 C) TempSrc: Temporal SpO2: 97% Weight: 79.4 kg (175 lb) Height: 5' 4 Estimated body mass index is 30.04 kg/m as calculated from the following: Height as of this encounter: 5' 4 . Weight as of this encounter: 79.4 kg (175 lb). Physical Exam Vitals and nursing note reviewed. Constitutional: Appearance: Normal appearance. She is obese. HENT: Head: Normocephalic and atraumatic. Mouth/Throat: Mouth: Mucous membranes are moist. Eyes: Extraocular Movements: Extraocular movements intact. Conjunctiva/sclera: Right eye: Right conjunctiva is not injected. Left eye: Left conjunctiva is not injected. Comments: Lower orbital edema noted Erythema/rash noted on left cheek Cardiovascular: Rate and Rhythm: Normal rate and regular rhythm. Heart sounds: Normal heart sounds. Pulmonary: Effort: Pulmonary effort is normal. Breath sounds: Normal breath sounds. Abdominal: General: Abdomen is flat. There is no distension. Palpations: Abdomen is soft. Musculoskeletal: General: Normal range of motion. Skin: General: Skin is warm. Findings: Rash present. Rash is macular. Comments: Macular rash noted on neck and face and shoulders Neurological: General: No focal deficit present. Mental Status: She is alert and oriented to person, place, and time. Mental status is at baseline. Psychiatric: Attention and Perception: Attention and perception normal. Mood and Affect: Mood normal. Speech: Speech normal. Behavior: Behavior normal. Thought Content: Thought content normal. Cognition and Memory: Cognition and memory normal. Judgment: Judgment normal. PHQ9: RADHA-7 Tobacco Counseling: Counseling given: Not Answered Assessment/Plan: Problem List Items Addressed This Visit Musculoskeletal and Integument Generalized rash - Primary Likely allergic reaction -advised to take zyrtec 40mg for 5 days to help with itching Prednisone X5 days prescribed Follow up if symptoms do not improve ADDENDUM: States she began taking losartan 2 weeks ago. Advised patient to discontinue medication and we will send in a new one. 11/14/2021 3:16 PM Return if symptoms worsen or fail to improve. For any new medications prescribed today, patient was educated about indications for the medication, how to take the medication and potential side effects of the medications. Shaista Hale MD [place] [address] [facility] [address] Dept: [phone] documented in this encounter [facility] 11-14-2021 Instructions Shaista Hale MD - 11/14/2021 2:29 PM EST Problem List Items Addressed This Visit Musculoskeletal and Integument Generalized rash Likely allergic reaction -advised to take zyrtec 40mg for 5 days to help with itching Prednisone X5 days prescribed Follow up if symptoms do not improve Other Visit Diagnoses At low risk for fall - Primary If any referrals were placed at the time of your visit please allow 2 weeks for processing. If you haven't heard from anyone within 2 weeks please contact my office so we can look into the status of your referral. If you were given any labs today please ensure they are completed according to the directions given. Most normal results will be available through MyChart however if abnormal, you will be notified. Please allow 48-72 hours for review, and let you know what steps, if any, are needed next. If you haven't heard from us after that please call to inquire. If labs were ordered to be done PRIOR to your next visit we will discuss the results at the time of your office visit. If any procedures or imaging studies were ordered that must be prior authorized please give us 2 weeks to get them approved. Once approved someone should call you to schedule them or give you a date and time that they were scheduled for. If you haven't heard anything within 2 weeks of the office visit please call the office so we can look into their status. Customer Service/Billing Questions: [phone] MyChart Assistance: [phone] or [phone] Financial Assistance: [phone] or [phone] documented in this encounter [facility] 09-27-2021 Miscellaneous Notes Pt is requesting refill of Singulair And also wanted to know what else she can take for pain for her knees, other than ibuprofen. She also states she was not fasting for her labs and wonders if that's why they are elevated like she seen in her mychart. Made pt and appt for 10/16 at 2p documented in this encounter [facility] 09-25-2021 Instructions Tayler Lazaro CNP - 09/25/2021 2:53 PM EST Problem List Items Addressed This Visit Endocrine Hypothyroidism - Primary Relevant Orders Lipid Panel TSH with Reflex Free T4 Cardiovascular and Mediastinum Essential hypertension Your blood pressure is entirely too high. I am going to start you on Olmesartan 40 mg daily, take this in the morning. Goal blood pressure is less than 130/80. If your BP at home is running consistently higher than 140/90 please call and notify the office. Please monitor your blood pressure at home and keep a log. I want you to write down the time, your blood pressure, and your heart rate readings. Please bring your log and blood pressure cuff to all of your visits. Check your blood pressure 3-4 times a week at different random times. Make sure you are sitting in a chair, back flat against chair back, feet flat on the floor, legs uncrossed, arm at the level of your heart. Relevant Medications olmesartan (BENICAR) 40 MG tablet Other Relevant Orders CBC and Differential Comprehensive Metabolic Panel TSH with Reflex Free T4 Other Hyperlipidemia LDL goal <100 Relevant Orders Comprehensive Metabolic Panel Lipid Panel TSH with Reflex Free T4 Other Visit Diagnoses Prediabetes Relevant Orders Hemoglobin A1c If any referrals were placed at the time of your visit please allow 2 weeks for processing. If you haven't heard from anyone within 2 weeks please contact my office so we can look into the status of your referral. If you were given any labs today please ensure they are completed according to the directions given. Once labs are completed please allow 1-2 weeks for us to receive the results, review them, and let you know what steps, if any, are needed next. If you haven't heard from us after that please call to inquire. If labs were ordered to be done PRIOR to your next visit we will discuss the results at the time of your office visit. If any procedures or imaging studies were ordered that must be prior authorized please give us 2 weeks to get them approved. Once approved someone should call you to schedule them or give you a date and time that they were scheduled for. If you haven't heard anything within 2 weeks of the office visit please call the office so we can look into their status. Customer Service/Billing Questions: [phone] [facility] Assistance: [phone] or [phone] Financial Assistance: [phone] or [phone] documented in this encounter [facility] 09-25-2021 Miscellaneous Notes Associated Problem(s): Essential hypertension Your blood pressure is entirely too high. I am going to start you on Olmesartan 40 mg daily, take this in the morning. Goal blood pressure is less than 130/80. If your BP at home is running consistently higher than 140/90 please call and notify the office. Please monitor your blood pressure at home and keep a log. I want you to write down the time, your blood pressure, and your heart rate readings. Please bring your log and blood pressure cuff to all of your visits. Check your blood pressure 3-4 times a week at different random times. Make sure you are sitting in a chair, back flat against chair back, feet flat on the floor, legs uncrossed, arm at the level of your heart. documented in this encounter [facility] 09-25-2021 History of Presen t illness Narrative Images from the original note were not included. Subjective Patient ID: Vilma Carrera is a 65 y.o. female. Patient is here today for a routine interval visit. Patient has long list of issues and complaints, difficult to keep on track. Patient is still actively grieving the loss of her son who August 03 after surgical complications. HTN: Patient was restarted on Losartan February 2021, she states she took this until her son . She states she quit taking it at that time because it has been causing severe fatigue. She states it is causing loss of memory and making her sleep 10-12 hours at a time if she takes Losartan. Patient states she is checking her blood pressure at home and it has been 140/70-80's without the Losartan. She states she gets spells of high blood pressure because she gets dizzy and lightheaded. She states she is taking Ibuprofen pretty regulary, she is taking at least 400 mg daily for chronic pain. Per last note: Noted from Dr. Quintanilla note 04/23/2018: The last time she was here her blood pressure was significantly elevated this patient has a history of being on several blood pressure medications at least for she has been on lisinopril losartan amlodipine and another type of beta-jennifer. I decided to put her on Bystolic as it is a much neutral beta-jennifer she states that she felt very dizzy and lightheaded and had to stop the medication. Note 04/09/2018 Dr. 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 The following were reviewed and updated as appropriate for today's visit: allergies, current medications, past family history, past medical history, past social history, past surgical history and problem list. Patient's Medications New Prescriptions OLMESARTAN (BENICAR) 40 MG TABLET Take 1 (one) tablet (40 mg total) by mouth daily . Previous Medications ACETAMINOPHEN (TYLENOL) 325 MG TABLET Take 650 mg by mouth every 6 (six) hours as needed for pain. ALBUTEROL 90 MCG/ACTUATION INHALER Inhale 2 (two) puffs every 6 (six) hours as needed for wheezing . CHOLECALCIFEROL, VITAMIN D3, (VITAMIN D3 ORAL) Take 1,000 mg by mouth daily . COENZYME Q10 (CO Q-10) 100 MG CAPSULE Take 100 mg by mouth daily. MAGNESIUM 250 MG TAB Take by mouth . MONTELUKAST (SINGULAIR) 10 MG TABLET Take 10 mg by mouth nightly . S-ADENOSYLMETHIONINE (MARISOL-E, ENTERIC COATED,) 200 MG TBEC Take 1 tablet by mouth 2 (two) times a day. SYNTHROID 88 MCG TABLET Take 1 (one) tablet (88 mcg total) by mouth daily AND 2 (two) tablets (176 mcg total) weekly at bedtime. TRIAMCINOLONE (KENALOG) 0.1 % CREAM Apply topically 2 (two) times a day as needed . Modified Medications No medications on file Discontinued Medications [id number]-HYAL-CATE BOR ORAL Take by mouth daily . LOSARTAN (COZAAR) 50 MG TABLET Take 1 (one) tablet (50 mg total) by mouth daily . MONTELUKAST (SINGULAIR) 10 MG TABLET TAKE 1 TABLET BY MOUTH EVERY EVENING PHENAZOPYRIDINE (PYRIDIUM) 100 MG TABLET Take 1 (one) tablet (100 mg total) by mouth 3 (three) times a day . Review of Systems Review of Systems Constitutional: Positive for fatigue. Negative for activity change. HENT: Positive for congestion, ear pain and postnasal drip. Negative for ear discharge, hearing loss, rhinorrhea and sore throat. Eyes: Negative for visual disturbance. Respiratory: Negative for cough, chest tightness and shortness of breath. Cardiovascular: Negative for chest pain and palpitations. Gastrointestinal: Negative for abdominal pain, diarrhea and vomiting. Musculoskeletal: Positive for arthralgias and myalgias. Negative for gait problem and neck pain. Skin: Negative. Negative for rash. Allergic/Immunologic: Positive for environmental allergies. Neurological: Negative for headaches. Psychiatric/Behavioral: Positive for decreased concentration. Negative for agitation. Vitals: 09/25/21 1405 09/25/21 1416 BP: (!) 164/99 (!) 174/131 BP Location: Left arm Left arm Patient Position: Sitting Sitting BP Cuff Size: X-large Adult X-large Adult Pulse: (!) 100 (!) 101 Resp: 16 Temp: 98.5 F (36.9 C) TempSrc: Temporal SpO2: 95% Weight: 79 kg (174 lb 3.2 oz) Height: 5' 4 Body mass index is 29.9 kg/m . Physical Exam Physical Exam OARRS/NARxCHECK Report Received and Assessed: 04/09/2018 Date controlled substance agreement signed: No data found Date of last drug screen: No data found Functional Assessment: No data found Assessment/Plan Problem List Items Addressed This Visit Endocrine Hypothyroidism - Primary Relevant Orders Lipid Panel TSH with Reflex Free T4 Cardiovascular and Mediastinum Essential hypertension Your blood pressure is entirely too high. I am going to start you on Olmesartan 40 mg daily, take this in the morning. Goal blood pressure is less than 130/80. If your BP at home is running consistently higher than 140/90 please call and notify the office. Please monitor your blood pressure at home and keep a log. I want you to write down the time, your blood pressure, and your heart rate readings. Please bring your log and blood pressure cuff to all of your visits. Check your blood pressure 3-4 times a week at different random times. Make sure you are sitting in a chair, back flat against chair back, feet flat on the floor, legs uncrossed, arm at the level of your heart. Relevant Medications olmesartan (BENICAR) 40 MG tablet Other Relevant Orders CBC and Differential Comprehensive Metabolic Panel TSH with Reflex Free T4 Other Hyperlipidemia LDL goal <100 Relevant Orders Comprehensive Metabolic Panel Lipid Panel TSH with Reflex Free T4 Other Visit Diagnoses Prediabetes Relevant Orders Hemoglobin A1c For any new medications prescribed today, patient was educated about indications for the medication, how to take the medication and potential side effects of the medications. Tayler Lazaro CNP documented in this encounter [facility] 09-13-2021 History of Presen t illness Narrative [facility] reached out to Vilma to follow up on the BHI Program. She had expressed previously that she did not want to do the program, but agreed to [facility] calling to check in. They did not answer the phone at this time. [facility] provided contact information and a request for a call back at their earliest convenience. No further follow up planned at this time. documented in this encounter [facility] 08-14-2021 History of Presen t illness Narrative [facility] reached out to Vilma regarding BH referral placed by PCP. [facility] left message including contact information with request for a return call. [facility] will follow up in 1 week. Vilma called [facility] back. She has been grieving the loss of her son. 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 Reports that she is not interested in talking to a counselor at this time. She agreed to [facility] following up in a month to check in. documented in this encounter [facility] 08-07-2021 History of Presen t illness Narrative [facility] reached out to Vilma regarding BH referral placed by PCP. [facility] left message including contact information with request for a return call. [facility] will follow up in 1 week. documented in this encounter [facility] 07-09-2021 Miscellaneous Notes Refill requested on pended medication. Last OV 02/27/21. Next OV 08/28/21. documented in this encounter [facility] 02-27-2021 Instructions Tayler Lazaro CNP - 02/27/2021 2:13 PM EDT Problem List Items Addressed This Visit Respiratory Asthma - Primary Relevant Orders Ambulatory referral to Allergy Seasonal allergic rhinitis Relevant Orders Ambulatory referral to Allergy Cardiovascular and Mediastinum Essential hypertension If your BP is consistently above 140/90 call and let me know. Please monitor your blood pressure at home and keep a log. I want you to write down the time, your blood pressure, and your heart rate readings. Please bring your log and blood pressure cuff to all of your visits. Check your blood pressure 3-4 times a week at different random times. Make sure you are sitting in a chair, back flat against chair back, feet flat on the floor, legs uncrossed, arm at the level of your heart. Relevant Medications losartan (COZAAR) 50 MG tablet Other Hyperlipidemia LDL goal <100 Will recheck your cholesterol levels before your next visit to see if this has come down with lifestyle changes. The lab is open here at the office M-F 730am-4pm, you do not need an appointment, just walk in. I would like you to obtain some fasting blood work. This means that you can not have anything to eat or drink for about 8-10 hours before your blood is drawn. The only thing you are allowed to have before your labs is a glass of water or a cup of BLACK coffee. Thank you. Relevant Orders Lipid Panel Comprehensive Metabolic Panel If any referrals were placed at the time of your visit please allow 2 weeks for processing. If you haven't heard from anyone within 2 weeks please contact my office so we can look into the status of your referral. If you were given any labs today please ensure they are completed according to the directions given. Once labs are completed please allow 1-2 weeks for us to receive the results, review them, and let you know what steps, if any, are needed next. If you haven't heard from us after that please call to inquire. If labs were ordered to be done PRIOR to your next visit we will discuss the results at the time of your office visit. If any procedures or imaging studies were ordered that must be prior authorized please give us 2 weeks to get them approved. Once approved someone should call you to schedule them or give you a date and time that they were scheduled for. If you haven't heard anything within 2 weeks of the office visit please call the office so we can look into their status. Customer Service/Billing Questions: [phone] MyChart Assistance: [phone] or [phone] Financial Assistance: [phone] or [phone] documented in this encounter [facility] 02-27-2021 Miscellaneous Notes Associated Problem(s): Hyperlipidemia LDL goal <100 Will recheck your cholesterol levels before your next visit to see if this has come down with lifestyle changes. The lab is open here at the office M-F 730am-4pm, you do not need an appointment, just walk in. I would like you to obtain some fasting blood work. This means that you can not have anything to eat or drink for about 8-10 hours before your blood is drawn. The only thing you are allowed to have before your labs is a glass of water or a cup of BLACK coffee. Thank you. Associated Problem(s): Essential hypertension If your BP is consistently above 140/90 call and let me know. Please monitor your blood pressure at home and keep a log. I want you to write down the time, your blood pressure, and your heart rate readings. Please bring your log and blood pressure cuff to all of your visits. Check your blood pressure 3-4 times a week at different random times. Make sure you are sitting in a chair, back flat against chair back, feet flat on the floor, legs uncrossed, arm at the level of your heart. documented in this encounter [facility] 02-27-2021 History of Presen t illness Narrative Images from the original note were not included. Subjective Patient ID: Vilma Carrera is a 65 y.o. female. Patient is here today for a routine interval visit. HTN: She was started on Losartan 50 mg daily about 2 weeks ago. She has been checking her BP at home and it has been averaging 130's/70-80's. She states she has cut out Ibuprofen and coffee. She has had a lot of stress in her life and relates this to her elevated blood pressure. she denies any chest pain, SOB, palpitations, edema to legs/ankles, or nosebleeds. She states when her BP is high she feels wound up, flushed, and head pressure. HLD: Reviewed cholesterol panel with patient. She states it was diet and lack of activity and she would like to try lifestyle changes before starting medication. Ear pressure: Patient states despite antibiotic treatment for bilateral ear infections she continues to have ear pressure and fullness. She states she has been having a lot of allergy symptoms despite taking Singulair daily, [id number] antihistamine daily, Rhinocort nasal spray daily, and nasal saline multiple times a day. Patient is requesting to be seen by allergy and immunology specialist. The following were reviewed and updated as appropriate for today's visit: allergies, current medications, past family history, past medical history, past social history, past surgical history and problem list. Patient's Medications New Prescriptions No medications on file Previous Medications ACETAMINOPHEN (TYLENOL) 325 MG TABLET Take 650 mg by mouth every 6 (six) hours as needed for pain. ALBUTEROL 90 MCG/ACTUATION INHALER Inhale 2 (two) puffs every 6 (six) hours as needed for wheezing . CHOLECALCIFEROL, VITAMIN D3, (VITAMIN D3 ORAL) Take 1,000 mg by mouth daily . COENZYME Q10 (CO Q-10) 100 MG CAPSULE Take 100 mg by mouth daily. [id number]-D3-HYAL-CATE BOR ORAL Take by mouth daily . MAGNESIUM 250 MG TAB Take by mouth . MONTELUKAST (SINGULAIR) 10 MG TABLET TAKE 1 TABLET BY MOUTH EVERY EVENING PHENAZOPYRIDINE (PYRIDIUM) 100 MG TABLET Take 1 (one) tablet (100 mg total) by mouth 3 (three) times a day . S-ADENOSYLMETHIONINE (MARISOL-E, ENTERIC COATED,) 200 MG TBEC Take 1 tablet by mouth 2 (two) times a day. SYNTHROID 88 MCG TABLET Take 1 (one) tablet (88 mcg total) by mouth daily AND 2 (two) tablets (176 mcg total) weekly at bedtime. TRIAMCINOLONE (KENALOG) 0.1 % CREAM Apply topically 2 (two) times a day as needed . Modified Medications Modified Medication Previous Medication LOSARTAN (COZAAR) 50 MG TABLET losartan (COZAAR) 50 MG tablet Take 1 (one) tablet (50 mg total) by mouth daily . Take 1 (one) tablet (50 mg total) by mouth daily . Discontinued Medications CEFDINIR (OMNICEF) 300 MG CAPSULE Take 1 (one) capsule (300 mg total) by mouth 2 (two) times a day . SULFAMETHOXAZOLE-TRIMETHOPRIM (BACTRIM,SEPTRA) 400-80 MG PER TABLET Take 1 (one) tablet by mouth 2 (two) times a day . Review of Systems Review of Systems Constitutional: Negative for activity change and fatigue. HENT: Positive for congestion, ear pain and postnasal drip. Negative for ear discharge, hearing loss, rhinorrhea and sore throat. Eyes: Negative for visual disturbance. Respiratory: Negative for cough, chest tightness and shortness of breath. Cardiovascular: Negative for chest pain and palpitations. Gastrointestinal: Negative for abdominal pain, diarrhea and vomiting. Musculoskeletal: Negative for gait problem and neck pain. Skin: Negative. Negative for rash. Allergic/Immunologic: Positive for environmental allergies. Neurological: Negative for headaches. Psychiatric/Behavioral: Negative for agitation. Vitals: 02/27/21 1353 02/27/21 1358 BP: (!) 158/89 144/84 BP Location: Left arm Left arm Patient Position: Sitting Sitting BP Cuff Size: Adult Adult Pulse: (!) 101 (!) 100 Resp: 16 Temp: 97.7 F (36.5 C) TempSrc: Temporal SpO2: 95% Weight: 76.2 kg (168 lb) Height: 5' 4 Body mass index is 28.84 kg/m . Physical Exam Physical Exam Constitutional: Appearance: She is well-developed. HENT: Right Ear: External ear normal. A middle ear effusion is present. Tympanic membrane is injected. Left Ear: External ear normal. A middle ear effusion is present. Tympanic membrane is injected. Nose: Right Sinus: Maxillary sinus tenderness present. Left Sinus: Maxillary sinus tenderness present. Eyes: General: Lids are normal. Conjunctiva/sclera: Conjunctivae normal. Cardiovascular: Rate and Rhythm: Normal rate and regular rhythm. Heart sounds: Normal heart sounds. No murmur heard. Pulmonary: Effort: Pulmonary effort is normal. Breath sounds: Normal breath sounds. Musculoskeletal: Cervical back: Normal range of motion. Comments: Normal gait Skin: General: Skin is warm and dry. Neurological: Mental Status: She is alert and oriented to person, place, and time. GCS: GCS eye subscore is 4. GCS verbal subscore is 5. GCS motor subscore is 6. Psychiatric: Speech: Speech normal. Behavior: Behavior normal. OARRS/NARxCHECK Report Received and Assessed: 04/09/2018 Date controlled substance agreement signed: No data found Date of last drug screen: No data found Functional Assessment: No data found Assessment/Plan Problem List Items Addressed This Visit Respiratory Asthma - Primary Relevant Orders Ambulatory referral to Allergy Seasonal allergic rhinitis Relevant Orders Ambulatory referral to Allergy Cardiovascular and Mediastinum Essential hypertension If your BP is consistently above 140/90 call and let me know. Please monitor your blood pressure at home and keep a log. I want you to write down the time, your blood pressure, and your heart rate readings. Please bring your log and blood pressure cuff to all of your visits. Check your blood pressure 3-4 times a week at different random times. Make sure you are sitting in a chair, back flat against chair back, feet flat on the floor, legs uncrossed, arm at the level of your heart. Relevant Medications losartan (COZAAR) 50 MG tablet Other Hyperlipidemia LDL goal <100 Will recheck your cholesterol levels before your next visit to see if this has come down with lifestyle changes. The lab is open here at the office M-F 730am-4pm, you do not need an appointment, just walk in. I would like you to obtain some fasting blood work. This means that you can not have anything to eat or drink for about 8-10 hours before your blood is drawn. The only thing you are allowed to have before your labs is a glass of water or a cup of BLACK coffee. Thank you. Relevant Orders Lipid Panel Comprehensive Metabolic Panel For any new medications prescribed today, patient was educated about indications for the medication, how to take the medication and potential side effects of the medications. Tayler Lazaro CNP documented in this encounter [facility] 02-13-2021 Instructions Tayler Lazaro CNP - 02/13/2021 3:44 PM EDT Problem List Items Addressed This Visit Cardiovascular and Mediastinum Essential hypertension - Primary I want you to start with 1/2 tablet of losartan x 3 days and then increase to a full tablet. Please monitor your blood pressure at home and keep a log. I want you to write down the time, your blood pressure, and your heart rate readings. Please bring your log and blood pressure cuff to all of your visits. Check your blood pressure daily at different random times. Make sure you are sitting in a chair, back flat against chair back, feet flat on the floor, legs uncrossed, arm at the level of your heart. Relevant Medications losartan (COZAAR) 50 MG tablet Other Visit Diagnoses Non-recurrent acute suppurative otitis media of both ears without spontaneous rupture of tympanic membranes Relevant Medications cefdinir (OMNICEF) 300 MG capsule Acute non-recurrent maxillary sinusitis Relevant Medications cefdinir (OMNICEF) 300 MG capsule If any referrals were placed at the time of your visit please allow 2 weeks for processing. If you haven't heard from anyone within 2 weeks please contact my office so we can look into the status of your referral. If you were given any labs today please ensure they are completed according to the directions given. Once labs are completed please allow 1-2 weeks for us to receive the results, review them, and let you know what steps, if any, are needed next. If you haven't heard from us after that please call to inquire. If labs were ordered to be done PRIOR to your next visit we will discuss the results at the time of your office visit. If any procedures or imaging studies were ordered that must be prior authorized please give us 2 weeks to get them approved. Once approved someone should call you to schedule them or give you a date and time that they were scheduled for. If you haven't heard anything within 2 weeks of the office visit please call the office so we can look into their status. Customer Service/Billing Questions: [phone] MyChart Assistance: [phone] or [phone] Financial Assistance: [phone] or [phone] documented in this encounter [facility] 02-13-2021 Miscellaneous Notes Associated Problem(s): Essential hypertension I want you to start with 1/2 tablet of losartan x 3 days and then increase to a full tablet. Please monitor your blood pressure at home and keep a log. I want you to write down the time, your blood pressure, and your heart rate readings. Please bring your log and blood pressure cuff to all of your visits. Check your blood pressure daily at different random times. Make sure you are sitting in a chair, back flat against chair back, feet flat on the floor, legs uncrossed, arm at the level of your heart. documented in this encounter [facility] 02-13-2021 History of Presen t illness Narrative Images from the original note were not included. Subjective Patient ID: Vilma Carrera is a 65 y.o. female. Patient is here today for a routine interval visit. HTN: Patient checks her blood pressure at home sporadically and it is typically 130-140's/70's. Noted it is elevated at today's visit. She has been checking her BP at home and it has been averaging 150-170's/90's. She states she has cut out Ibuprofen and coffee. She has had a lot of stress in her life and she can not get her blood pressure to go down. She denies any chest pain, SOB, palpitations, edema to legs/ankles, or nosebleeds. She states when her BP is high she feels wound up, flushed, and head pressure. Noted from Dr. Quintanilla note 04/23/2018: The last time she was here her blood pressure was significantly elevated this patient has a history of being on several blood pressure medications at least for she has been on lisinopril losartan amlodipine and another type of beta-jennifer. I decided to put her on Bystolic as it is a much neutral beta-jennifer she states that she felt very dizzy and lightheaded and had to stop the medication. Note 04/09/2018 Dr. 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 This is a new problem. The current episode started in the past 7 days. The problem occurs constantly. The problem has been gradually worsening. There has been no fever. The pain is moderate. Pertinent negatives include no abdominal pain, coughing, diarrhea, ear discharge, headaches, hearing loss, neck pain, rash, rhinorrhea, sore throat or vomiting. There is no history of a chronic ear infection, hearing loss or a tympanostomy tube. The following were reviewed and updated as appropriate for today's visit: allergies, current medications, past family history, past medical history, past social history, past surgical history and problem list. Patient's Medications New Prescriptions CEFDINIR (OMNICEF) 300 MG CAPSULE Take 1 (one) capsule (300 mg total) by mouth 2 (two) times a day . LOSARTAN (COZAAR) 50 MG TABLET Take 1 (one) tablet (50 mg total) by mouth daily . Previous Medications ACETAMINOPHEN (TYLENOL) 325 MG TABLET Take 650 mg by mouth every 6 (six) hours as needed for pain. ALBUTEROL 90 MCG/ACTUATION INHALER Inhale 2 (two) puffs every 6 (six) hours as needed for wheezing . CHOLECALCIFEROL, VITAMIN D3, (VITAMIN D3 ORAL) Take 1,000 mg by mouth daily . COENZYME Q10 (CO Q-10) 100 MG CAPSULE Take 100 mg by mouth daily. NOSC-BBPFM-LQT-D3-HYAL-CATE BOR ORAL Take by mouth daily . MAGNESIUM 250 MG TAB Take by mouth . MONTELUKAST (SINGULAIR) 10 MG TABLET TAKE 1 TABLET BY MOUTH EVERY EVENING PHENAZOPYRIDINE (PYRIDIUM) 100 MG TABLET Take 1 (one) tablet (100 mg total) by mouth 3 (three) times a day . S-ADENOSYLMETHIONINE (MARISOL-E, ENTERIC COATED,) 200 MG TBEC Take 1 tablet by mouth 2 (two) times a day. SULFAMETHOXAZOLE-TRIMETHOPRIM (BACTRIM,SEPTRA) 400-80 MG PER TABLET Take 1 (one) tablet by mouth 2 (two) times a day . SYNTHROID 88 MCG TABLET Take 1 (one) tablet (88 mcg total) by mouth daily AND 2 (two) tablets (176 mcg total) weekly at bedtime. TRIAMCINOLONE (KENALOG) 0.1 % CREAM Apply topically 2 (two) times a day as needed . Modified Medications No medications on file Discontinued Medications No medications on file Review of Systems Review of Systems Constitutional: Negative for activity change and fatigue. HENT: Positive for ear pain. Negative for ear discharge, hearing loss, rhinorrhea and sore throat. Eyes: Negative for visual disturbance. Respiratory: Negative for cough, chest tightness and shortness of breath. Cardiovascular: Negative for chest pain and palpitations. Gastrointestinal: Negative for abdominal pain, diarrhea and vomiting. Musculoskeletal: Negative for gait problem and neck pain. Skin: Negative. Negative for rash. Neurological: Negative for headaches. Psychiatric/Behavioral: Negative for agitation. Vitals: 02/13/21 1511 02/13/21 1521 BP: (!) 178/78 (!) 169/89 BP Location: Right arm Right arm Patient Position: Sitting Sitting BP Cuff Size: Adult Adult Pulse: 82 80 Resp: 16 Temp: 97.5 F (36.4 C) TempSrc: Temporal SpO2: 94% Weight: 76.3 kg (168 lb 4.8 oz) Height: 5' 4 Body mass index is 28.89 kg/m . Physical Exam Physical Exam Constitutional: Appearance: She is well-developed. HENT: Right Ear: External ear normal. A middle ear effusion is present. Tympanic membrane is injected. Left Ear: External ear normal. A middle ear effusion is present. Tympanic membrane is injected. Nose: Right Sinus: Maxillary sinus tenderness present. Left Sinus: Maxillary sinus tenderness present. Eyes: General: Lids are normal. Conjunctiva/sclera: Conjunctivae normal. Cardiovascular: Rate and Rhythm: Normal rate and regular rhythm. Heart sounds: Normal heart sounds. No murmur heard. Pulmonary: Effort: Pulmonary effort is normal. Breath sounds: Normal breath sounds. Musculoskeletal: Cervical back: Normal range of motion. Comments: Normal gait Skin: General: Skin is warm and dry. Neurological: Mental Status: She is alert and oriented to person, place, and time. GCS: GCS eye subscore is 4. GCS verbal subscore is 5. GCS motor subscore is 6. Psychiatric: Speech: Speech normal. Behavior: Behavior normal. OARRS/NARxCHECK Report Received and Assessed: 04/09/2018 Date controlled substance agreement signed: No data found Date of last drug screen: No data found Functional Assessment: No data found Assessment/Plan Problem List Items Addressed This Visit Cardiovascular and Mediastinum Essential hypertension - Primary I want you to start with 1/2 tablet of losartan x 3 days and then increase to a full tablet. Please monitor your blood pressure at home and keep a log. I want you to write down the time, your blood pressure, and your heart rate readings. Please bring your log and blood pressure cuff to all of your visits. Check your blood pressure daily at different random times. Make sure you are sitting in a chair, back flat against chair back, feet flat on the floor, legs uncrossed, arm at the level of your heart. Relevant Medications losartan (COZAAR) 50 MG tablet Other Visit Diagnoses Non-recurrent acute suppurative otitis media of both ears without spontaneous rupture of tympanic membranes Relevant Medications cefdinir (OMNICEF) 300 MG capsule Acute non-recurrent maxillary sinusitis Relevant Medications cefdinir (OMNICEF) 300 MG capsule For any new medications prescribed today, patient was educated about indications for the medication, how to take the medication and potential side effects of the medications. [facility] Depression Screening 04/03/2020 02/13/2021 Little interest or pleasure in doing things 0 0 Feeling down, depressed, or hopeless 0 0 PHQ-2 Total Score 0 0 Trouble falling or staying asleep, or sleeping too much 0 0 Feeling tired or having little energy 0 0 Poor appetite or overeating 0 0 Feeling bad about yourself - or that you are a failure or have let yourself or your family down 0 0 Trouble concentrating on things, such as reading the newspaper or watching television 0 0 Moving or speaking so slowly that other people could have noticed. Or the opposite - being so fidgety or restless that you have been moving around a lot more than usual 0 0 Thoughts that you would be better off , or of hurting yourself in some way 0 0 PHQ-9 Total Score 0 0 If you checked off any problems, how difficult have these problems made it for you to do your work, take care of things at home, or get along with other people? Not difficult at all Not difficult at all documented in this encounter [facility] Diagnosis Asthma, unspecified asthma severity, unspecified whether complicated, unspecified whether persistent- Primary Seasonal allergic rhinitis, unspecified trigger Essential hypertension Unspecified essential hypertension Hyperlipidemia LDL goal <100 Other and unspecified hyperlipidemia [facility] Diagnosis Seasonal allergic rhinitis, unspecified trigger [facility]* Diagnosis Hypothyroidism, unspecified type [facility]* Diagnosis Hypothyroidism, unspecified type [facility]* Diagnosis Hypothyroidism, unspecified type- Primary Essential hypertension Unspecified essential hypertension Hyperlipidemia LDL goal <100 Other and unspecified hyperlipidemia Prediabetes Other abnormal glucose [facility]* Diagnosis Generalized rash- Primary [facility] Name Dates Details Patient Instructions Indication:BMI 29.0-29.9,adult Start:02-May-2023 Instruction Type:Provider Instructions for Treatment How to Access Health Informa tion Online using Patient Portal and 3rd Libertarian Apps Indication:BMI 29.0-29.9,adult Start:02-May-2023 Instruction Type:Patient Education [facility]; [facility] Work Phone: [employer]* Name Dates Details Patient Instructions Indication:BMI 29.0-29.9,adult Start:02-May-2023 Instruction Type:Provider Instructions for Treatment How to Access Health Informa tion Online using Patient Portal and [employer] Apps Indication:BMI 29.0-29.9,adult Start:02-May-2023 Instruction Type:Patient Education [facility]; [facility] Work Phone: [employer]* Name Dates Details Patient Instructions Indication:BMI 29.0-29.9,adult Start:02-May-2023 Instruction Type:Provider Instructions for Treatment How to Access Health Informa tion Online using Patient Portal and 3rd Libertarian Apps Indication:BMI 29.0-29.9,adult Start:02-May-2023 Instruction Type:Patient Education [facility]; [facility] Work Phone: Instructions* Name Dates Details Patient Instructions Indication:Non-smoker Start:12-Jun-2023 Instruction Type:Provider Instructions for Treatment How to Access Health Informa tion Online using Patient Portal and 3rd Libertarian Apps Indication:Non-smoker Start:12-Jun-2023 Instruction Type:Patient Education Patient Instructions Indication:BMI 29.0-29.9,adult Start:02-May-2023 Instruction Type:Provider Instructions for Treatment How to Access Health Informa tion Online using Patient Portal and 3rd Libertarian Apps Indication:BMI 29.0-29.9,adult Start:02-May-2023 Instruction Type:Patient Education [facility]; [facility] Work Phone: Instructions* Name Dates Details Patient Instructions Indication:Non-smoker Start:12-Jun-2023 Instruction Type:Provider Instructions for Treatment How to Access Health Informa tion Online using Patient Portal and 3rd Libertarian Apps Indication:Non-smoker Start:12-Jun-2023 Instruction Type:Patient Education Patient Instructions Indication:BMI 29.0-29.9,adult Start:02-May-2023 Instruction Type:Provider Instructions for Treatment How to Access Health Informa tion Online using Patient Portal and 3rd Libertarian Apps Indication:BMI 29.0-29.9,adult Start:02-May-2023 Instruction Type:Patient Education [facility]; [facility] Work Phone: Instructions* Name Dates Details Patient Instructions Indication:Non-smoker Start:12-Jun-2023 Instruction Type:Provider Instructions for Treatment How to Access Health Informa tion Online using Patient Portal and 3rd Libertarian Apps Indication:Non-smoker Start:12-Jun-2023 Instruction Type:Patient Education Patient Instructions Indication:BMI 29.0-29.9,adult Start:02-May-2023 Instruction Type:Provider Instructions for Treatment How to Access Health Informa tion Online using Patient Portal and 3rd Libertarian Apps Indication:BMI 29.0-29.9,adult Start:02-May-2023 Instruction Type:Patient Education [facility]; [facility] Work Phone: Summary Purpose Family History Unknown Family Member Name Dates Details Family Members In General Comments:ETOH, Leukemia, Can cer, Diabetes, Heart, HBP, Stroke, Thyroid Status:Active hypertension (Renamed from N egative Family History of:) Comments:brother(48) uncle ( 42) [place] Status:Active Mother Comments:Physical abuse Status:Active Unknown Family Member Name Dates Details Family Members In General Comments:ETOH, Leukemia, Can cer, Diabetes, Heart, HBP, Stroke, Thyroid Status:Active hypertension (Renamed from N egative Family History of:) Comments:brother(48) uncle ( 42) [place] Status:Active Mother Comments:Physical abuse Status:Active Unknown Family Member Name Dates Details Family Members In General Comments:ETOH, Leukemia, Can cer, Diabetes, Heart, HBP, Stroke, Thyroid Status:Active hypertension (Renamed from N egative Family History of:) Comments:brother(48) uncle ( 42) [place] Status:Active Mother Comments:Physical abuse Status:Active Unknown Family Member Name Dates Details Family Members In General Comments:ETOH, Leukemia, Can cer, Diabetes, Heart, HBP, Stroke, Thyroid Status:Active hypertension (Renamed from N egative Family History of:) Comments:brother(48) uncle ( 42) [place] Status:Active Mother Comments:Physical abuse Status:Active Unknown Family Member Name Dates Details Family Members In General Comments:ETOH, Leukemia, Can cer, Diabetes, Heart, HBP, Stroke, Thyroid Status:Active hypertension (Renamed from N egative Family History of:) Comments:brother(48) uncle ( 42) [place] Status:Active Mother Comments:Physical abuse Status:Active Unknown Family Member Name Dates Details Family Members In General Comments:ETOH, Leukemia, Can cer, Diabetes, Heart, HBP, Stroke, Thyroid Status:Active hypertension (Renamed from N egative Family History of:) Comments:brother(48) uncle ( 42) [place] Status:Active Mother Comments:Physical abuse Status:Active Advance Directives Documents on File Type Date Recorded 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 Advance Directives and Living Will Documents on File Type Date Recorded 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 Advance Directives and Living Will Documents on File Type Date Recorded 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 Advance Directives and Livin g Will 05/09/2020 10:14 AM Documents on File Type Date Recorded 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 Advance Directives and Livin g Will 06/22/2020 1:46 PM Documents on File Type Date Recorded 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 Advance Directives and Livin g Will 06/22/2020 1:46 PM Documents on File Type Date Recorded 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 Advance Directives and Livin g Will 06/30/2020 1:46 PM Documents on File Type Date Recorded 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 Advance Directives and Livin g Will 06/30/2020 1:46 PM Reason for Referral Status Reason Specialty Diagnoses / Procedures Referred By Contact Referred To Contact Pending Review Otolaryngology Diagnoses Cholesteatoma of both ears Kianna Daley MD [address] [place], [place] [id number] Status Reason Specialty Diagnoses / Procedures Referred By Contact Referred To Contact Closed Specialty Services Required/Patient' s Best Interest Audiology Diagnoses Tinnitus of both ears Tao Hung Angelamacario, DO [address] [place], [place] [id number] Mariana Silva AuD Status Reason Specialty Diagnoses / Procedures Referred By Contact Referred To Contact Authorized Radiology Diagnoses Postmenopausal Procedures XR Bone Density DEXA Axial Kianna Daley MD [address] [place] [address] Status Reason Specialty Diagnoses / Procedures Referred By Contact Referred To Contact Closed Specialty Services Required/Patient' s Best Interest Radiology Diagnoses Postmenopausal Procedures XR Bone Density DEXA Axial Kianna Daley MD [address] [place], [place] [id number] Status Reason Specialty Diagnoses / Procedures Referred By Contact Referred To Contact Authorized Allergy Diagnoses Asthma, unspecified asthma severity, unspecified whether complicated, unspecified whether persistent Seasonal allergic rhinitis, unspecified trigger Spring, Tayler Gil, ELECTRICAL PROSPECTING ENGINEER [address] [id number] Sharmila Walker MD [address] [place], [place] [id number] Instructions * Patient Instructions* Kianna Daley MD - 06/24/2019 11:44 AM EDT Use the Nettipot, Nasacort, Zyrtec, Singulair. Use your asthma inhaler when you feel short of breath, wheezing, coughing and chest tightness. Managing Your Allergies: Care Instructions Your Care Instructions Managing your allergies is an important part of staying healthy. Your doctor will help you find outwhat may be causing the allergies. Common causes of allergy symptoms are house dust and dust mites,animal dander, mold, and pollen. As soon as you know what triggers your symptoms, try to reduce your exposure to your triggers. Thiscan help prevent allergy symptoms, asthma, and other health problems. Ask your doctor about allergy medicine or immunotherapy. These treatments may help reduce or prevent allergy symptoms. Follow-up care is a walker part of your treatment and safety. Be sure to make and go to all appointments, and call your doctor if you are having problems. It's also a good idea to know your test resultsand keep a list of the medicines you take. How can you care for yourself at home? If you think that dust or dust mites are causing your allergies: ? Wash sheets, pillowcases, and other bedding every week in hot water. ? Use airtight, dust-proof covers for pillows, duvets, and mattresses. Avoid plastic covers, because they tend to tear quickly and do not breathe. Wash according to the instructions. ? Remove extra blankets and pillows that you don't need. ? Use blankets that are machine-washable. ? Don't use home humidifiers. They can help mites live longer. Use air-conditioning. Change or clean all filters every month. Keep windows closed. Use high-efficiency air filters. Don't use window or attic fans, which draw dust into the air. If you're allergic to pet dander, keep pets outside or, at the very least, out of your bedroom. Oldcarpet and cloth-covered furniture can hold a lot of animal dander. You may need to replace them. Look for signs of cockroaches. Use cockroach baits to get rid of them. Then clean your home well. If you're allergic to mold, don't keep indoor plants, because molds can grow in soil. Get rid of furniture, rugs, and drapes that smell musty. Check for mold in the bathroom. If you're allergic to pollen, stay inside when pollen counts are high. Don't smoke or let anyone else smoke in your house. Don't use fireplaces or wood-burning stoves. Avoid paint fumes, perfumes, and other strong odors. When should you call for help? Give an epinephrine shot if: You think you are having a severe allergic reaction. After giving an epinephrine shot call 911, even if you feel better. Call 911 if: You have symptoms of a severe allergic reaction. These may include: ? Sudden raised, red areas (hives) all over your body. ? Swelling of the throat, mouth, lips, or tongue. ? Trouble breathing. ? Passing out (losing consciousness). Or you may feel very lightheaded or suddenly feel weak, confused, or restless. You have been given an epinephrine shot, even if you feel better. Call your doctor now or seek immediate medical care if: You have symptoms of an allergic reaction, such as: ? A rash or hives (raised, red areas on the skin). ? Itching. ? Swelling. ? Belly pain, nausea, or vomiting. Watch closely for changes in your health, and be sure to contact your doctor if: Your allergies get worse. You need help controlling your allergies. You have questions about allergy testing. You do not get better as expected. Where can you learn more? Log into your personal health record on [email or web address] and enter L249 in the Education box to learn more about Managing Your Allergies: Care Instructions. Current as of: October 26, 2018 Content Version: 12.1 9952-6870 [employer]. Care instructions adapted under license by your healthcare professional. If you have questions about a medical condition or this instruction, always ask your healthcare professional. [employer] disclaims any warranty or liability for your use of this information. documented in this encounter* Patient Instructions* Tao Hung, - 07/20/2019 3:19 PM EDT Assessment/Plan: Diagnoses and all orders for this visit: Bilateral impacted cerumen - Ear cerumen removal I debrided the patient ear(s) using microscope and instrumentation. I will see them back in 6 months or earlier if needed. Tinnitus of both ears Comments: - noted on physical exam, Unclear if perforation is present. with chronic hx of infections, will send to ENT. Orders: - Ambulatory referral to ENT - Ambulatory referral to Audiology; Future Normal audiologic evaluation today. Follow up as needed for this issue. Itching of ear Discussed with patient the effects of using cue tips in their ears as it relates to itching and thepurpose of wax in the canals. I have encourage the patient to stop using cue tips in their ear canals and, to help with ear canal itch, to use sweet oil (extra virgin olive oil) to the opening of theear canals. This will help condition the ear canal skin and decrease the itch response. documented in this encounter* Patient Instructions* Kianna Daley MD - 12/07/2019 2:06 PM EST I have started you on a new blood pressure medication. In 2 weeks if your BP is still > 140/90, take two of the tablets instead. Call and schedule an appointment with your eyewear consultant. DASH Diet: Care Instructions Your Care Instructions The DASH diet is an eating plan that can help lower your blood pressure. DASH stands for Dietary Approaches to Stop Hypertension. Hypertension is high blood pressure. The DASH diet focuses on eating foods that are high in calcium, potassium, and magnesium. These nutrients can lower blood pressure. The foods that are highest in these nutrients are fruits, vegetables, low-fat dairy products, nuts, seeds, and legumes. But taking calcium, potassium, and magnesium supplements instead of eating foods that are high in those nutrients does not have the same effect. The DASH diet also includes whole grains, fish, and poultry. The DASH diet is one of several lifestyle changes your doctor may recommend to lower your high blood pressure. Your doctor may also want you to decrease the amount of sodium in your diet. Lowering sodium while following the DASH diet can lower blood pressure even further than just the DASH diet alone. Follow-up care is a walker part of your treatment and safety. Be sure to make and go to all appointments, and call your doctor if you are having problems. It's also a good idea to know your test resultsand keep a list of the medicines you take. How can you care for yourself at home? Following the DASH diet Eat 4 to 5 servings of fruit each day. A serving is 1 medium-sized piece of fruit, cup chopped or canned fruit, 1/4 cup dried fruit, or 4 ounces ( cup) of fruit juice. Choose fruit more often than fruit juice. Eat 4 to 5 servings of vegetables each day. A serving is 1 cup of lettuce or raw leafy vegetables, cup of chopped or cooked vegetables, or 4 ounces ( cup) of vegetable juice. Choose vegetables more often than vegetable juice. Get 2 to 3 servings of low-fat and fat-free dairy each day. A serving is 8 ounces of milk, 1 cup ofyogurt, or 1 ounces of cheese. Eat 6 to 8 servings of grains each day. A serving is 1 slice of bread, 1 ounce of dry cereal, or cup of cooked rice, pasta, or cooked cereal. Try to choose whole-grain products as much as possible. Limit lean meat, poultry, and fish to 2 servings each day. A serving is 3 ounces, about the size ofa deck of cards. Eat 4 to 5 servings of nuts, seeds, and legumes (cooked dried beans, lentils, and split peas) each week. A serving is 1/3 cup of nuts, 2 tablespoons of seeds, or cup of cooked beans or peas. Limit fats and oils to 2 to 3 servings each day. A serving is 1 teaspoon of vegetable oil or 2 tablespoons of salad dressing. Limit sweets and added sugars to 5 servings or less a week. A serving is 1 tablespoon jelly or jam,cup sorbet, or 1 cup of lemonade. Eat less than 2,300 milligrams (mg) of sodium a day. If you limit your sodium to 1,500 mg a day, you can lower your blood pressure even more. Tips for success Start small. Do not try to make dramatic changes to your diet all at once. You might feel that you are missing out on your favorite foods and then be more likely to not follow the plan. Make small changes, and stick with them. Once those changes become habit, add a few more changes. Try some of the following: ? Make it a goal to eat a fruit or vegetable at every meal and at snacks. This will make it easy toget the recommended amount of fruits and vegetables each day. ? Try yogurt topped with fruit and nuts for a snack or healthy dessert. ? Add lettuce, tomato, cucumber, and onion to sandwiches. ? Combine a ready-made pizza crust with low-fat mozzarella cheese and lots of vegetable toppings. Try using tomatoes, squash, spinach, broccoli, carrots, cauliflower, and onions. ? Have a variety of cut-up vegetables with a low-fat dip as an appetizer instead of chips and dip. ? Sprinkle sunflower seeds or chopped almonds over salads. Or try adding chopped walnuts or almondsto cooked vegetables. ? Try some vegetarian meals using beans and peas. Add garbanzo or kidney beans to salads. Make burritos and tacos with mashed maxwell beans or black beans. Where can you learn more? Log into your personal health record on [email or web address] and enter H967 in the Education box to learn more about DASH Diet: Care Instructions. Current as of: January 12, 2019 Content Version: 12.3 [id number] [employer]. Care instructions adapted under license by your healthcare professional. If you have questions about a medical condition or this instruction, always ask your healthcare professional. [employer] disclaims any warranty or liability for your use of this information. documented in this encounter* Patient Instructions* Kianna Daley MD - 04/03/2020 1:42 PM EDT Call central scheduling for your ultrasound and your Bone density. [phone] YOU are due for the shingles vaccine and pneumonia vaccine, you can get this done at your local pharmacy. documented in this encounter* Patient Instructions* Kianna Daley MD - 06/29/2020 2:18 PM EDT Learning About RICE (Rest, Ice, Compression, and Elevation) What is RICE? RICE is a way to care for an injury. RICE helps relieve pain and swelling. It may also help with healing and flexibility. RICE stands for: R est and protect the injured or sore area. I ce or a cold pack used as soon as possible. C ompression, or wrapping the injured or sore area with an elastic bandage. E levation (propping up) the injured or sore area. How do you do RICE? You can use RICE for home treatment when you have general aches and pains or after an injury or surgery. Rest Do not put weight on the injury for at least 24 to 48 hours. Use crutches for a badly sprained knee or ankle. Support a sprained wrist, elbow, or shoulder with a sling. Ice Put ice or a cold pack on the injury right away to reduce pain and swelling. Frozen vegetables willalso work as an ice pack. Put a thin cloth between the ice or cold pack and your skin. The cloth protects the injured area from getting too cold. Use ice for 10 to 15 minutes at a time for the first 48 to 72 hours. Compression Use compression for sprains, strains, and surgeries of the arms and legs. Wrap the injured area with an elastic bandage or compression sleeve to reduce swelling. Don't wrap it too tightly. If the area below it feels numb, tingles, or feels cool, loosen the wrap. Elevation Use elevation for areas of the body that can be propped up, such as arms and legs. Prop up the injured area on pillows whenever you use ice. Keep it propped up anytime you sit or liedown. Try to keep the injured area at or above the level of your heart. This will help reduce swelling and bruising. Where can you learn more? Log into your personal health record on [email or web address] and enter I463 in the Education box to learn more about Learning About RICE (Rest, Ice, Compression, and Elevation). Current as of: December 06, 2019 Content Version: 12.5 [employer]. Care instructions adapted under license by your healthcare professional. If you have questions about a medical condition or this instruction, always ask your healthcare professional. [employer] disclaims any warranty or liability for your use of this information. documented in this encounter* Patient Instructions* Kianna Daley MD - 08/11/2019 3:05 PM EST When you return, bring your blood pressure machine you. I will see you in 3-4 months for your medicare wellness exam, this is a preventative test and we will only discuss preventative testing. documented in this encounter* Patient Instructions* Tayler Lazaro CNP - 01/11/2021 2:45 PM EDT Problem List Items Addressed This Visit Endocrine Hypothyroidism Relevant Orders TSH with Reflex Free T4 (Completed) Lipid Panel (Completed) Respiratory Seasonal allergic rhinitis Relevant Medications triamcinolone (KENALOG) 0.1 % cream Cardiovascular and Mediastinum Essential hypertension Your blood pressure is elevated at today's visit. I want you to take your BP at home and let me know if it is consistently above 150/90. Please monitor your blood pressure at home and keep a log. I want you to write down the time, your blood pressure, and your heart rate readings. Please bring your log and blood pressure cuff to all of your visits. Check your blood pressure 3-4 times a week at different random times. Make sure you are sitting in a chair, back flat against chair back, feet flat on the floor, legs uncrossed, arm at the level of your heart. Relevant Orders Comprehensive Metabolic Panel (Completed) CBC and Differential (Completed) Other Visit Diagnoses Frequency of urination - Primary Relevant Medications sulfamethoxazole-trimethoprim (BACTRIM,SEPTRA) 400-80 mg per tablet Other Relevant Orders POC Urinalysis Dipstick (Completed) Urine Aerobic Culture (Completed) Elevated blood sugar Relevant Orders Hemoglobin A1c (Completed) Hyperlipidemia LDL goal <100 Relevant Orders TSH with Reflex Free T4 (Completed) Lipid Panel (Completed) Comprehensive Metabolic Panel (Completed) If any referrals were placed at the time of your visit please allow 2 weeks for processing. If you haven't heard from anyone within 2 weeks please contact my office so we can look into the status of your referral. If you were given any labs today please ensure they are completed according to the directions given. Once labs are completed please allow 1-2 weeks for us to receive the results, review them, and letyou know what steps, if any, are needed next. If you haven't heard from us after that please call to inquire. If labs were ordered to be done PRIOR to your next visit we will discuss the results at the time ofyour office visit. If any procedures or imaging studies were ordered that must be prior authorized please give us 2 weeks to get them approved. Once approved someone should call you to schedule them or give you a date and time that they were scheduled for. If you haven't heard anything within 2 weeks of the office visit please call the office so we can look into their status. Customer Service/Billing Questions: [phone] [employer] Assistance: [phone] or [phone] Financial Assistance: [phone] or [phone] documented in this encounter History of Present Illness * Kianna Daley MD - 06/24/2019 11:29 AM EDT Vilma Carrera is a 63 y.o. female Assessment/Plan: Problem List Items Addressed This Visit Respiratory Seasonal allergic rhinitis - Primary - chronic, continue the daily Zyrtec. Adding singular because she has had good results on this whenshe was on it in the past. She also has a h/o childhood asthma. She is not a smoker. Her ear exam is concerning and I think its best to have her f/u with ENT. Relevant Medications montelukast (SINGULAIR) 10 mg tablet albuterol 90 mcg/actuation inhaler Asthma -This is a chronic problem that seems to be exacerbated by allergies. We discussed that we can start her on the Singulair again as as this has been helpful in the past. He also discussed utilizing her inhaler as needed when she is having coughing and wheezing. She is hesitant but will use this whenneeded. States that it can make her little jittery. Relevant Medications montelukast (SINGULAIR) 10 mg tablet albuterol 90 mcg/actuation inhaler Cardiovascular and Mediastinum Essential hypertension - chronic, her BP is at goal today < 150/90 due to her ago. We discussed taking only 5 mg of thelisinopril and checking her pressure if she gets dizzy. She will follow up. Would like a renal function checked in one month. Other Visit Diagnoses Cholesteatoma of both ears - noted on physical exam, Unclear if perforation is present. with chronic hx of infections, will send to ENT. Relevant Orders Ambulatory referral to ENT Return in about 6 weeks (around 08/05/2019). Vilma Bill Carrera is a 63 y.o. female who presents for Chief Complaint Patient presents with Hypertension ER f/u HPI She is here today to f/u on her right ear infection. Was diagnosed with a perforation. Uses Zyrtec 10 mg daily, no improve. Had a h.o asthma when she was younger and notices that Singulair helped hermmaria e. She has seen a ordering machine operator in the past and had received Injections. Took mucinex. Does Nasacortbut not daily. Had about 2 weeks of congestion. HTN: Home monitoring: none Medications and adherence: not all the time, on lisinopril 10 mg prescribed by urgent care Side effects to medication: dizziness, low blood pressure Diets/weight loss: none Pertinent negatives include no chest pain, SOB, visual changes, palpitations or dysuria. Patient Active Problem List Diagnosis Calcific tendinitis of left shoulder region Essential hypertension Diaphoresis Seasonal allergic rhinitis Asthma Past Surgical History: Procedure Laterality Date LAMINECTOMY 1997 Family History Problem Relation Age of Onset Clotting disorder Mother Esophageal cancer Father Nephrolithiasis Sister Heart attack Other Allergies Other Hypothyroidism Other Diabetes Other Social History Tobacco Use Smoking status: Never Smoker Smokeless tobacco: Never Used Substance Use Topics Alcohol use: Yes Alcohol/week: 1.0 standard drinks Types: 1 Standard drinks or equivalent per week Comment: nightly Drug use: No Tobacco Counseling: Counseling given: No Current Outpatient Medications Medication Sig Dispense Refill acetaminophen (TYLENOL) 325 MG tablet Take 650 mg by mouth every 6 (six) hours as needed for pain. coenzyme Q10 (CO Q-10) 100 mg capsule Take 100 mg by mouth daily. s-adenosylmethionine (MARISOL-E, ENTERIC COATED,) 200 mg TbEC Take 1 tablet by mouth 2 (two) times a day. SYNTHROID 88 mcg tablet Take 1 (one) tablet (88 mcg total) by mouth daily . 90 tablet 3 albuterol 90 mcg/actuation inhaler Inhale 2 (two) puffs every 6 (six) hours as needed for wheezing . 1 Inhaler 0 CINNAMON BARK ORAL Take 1 capsule by mouth daily. montelukast (SINGULAIR) 10 mg tablet Take 1 (one) tablet (10 mg total) by mouth nightly . 30 tablet3 No current facility-administered medications for this visit. Review of Systems Physical Exam: BP 144/86 (BP Location: Left arm, Patient Position: Sitting, BP Cuff Size: Adult) Pulse 78 Temp98.5 F (36.9 C) (Temporal) Resp 18 Ht 5' 4 Wt 78.1 kg (172 lb 3.2 oz) SpO2 96% BMI 29.56kg/m Wt Readings from Last 3 Encounters: 06/24/19 78.1 kg (172 lb 3.2 oz) 04/23/18 81 kg (178 lb 9.6 oz) 04/09/18 82.1 kg (181 lb 1.6 oz) BP Readings from Last 3 Encounters: 06/24/19 144/86 04/23/18 (!) 142/92 04/09/18 (!) 184/102 Physical Exam Vitals signs reviewed. Constitutional: General: She is not in acute distress. Appearance: She is well-developed. She is not diaphoretic. HENT: Right Ear: Tympanic membrane is scarred and retracted. Left Ear: Ear canal normal. Tympanic membrane is scarred. Ears: Comments: Yellow/white clustered mass noted near the TM, suspected perforation. Eyes: Conjunctiva/sclera: Conjunctivae normal. Pupils: Pupils are equal, round, and reactive to light. Neck: Musculoskeletal: Normal range of motion. Cardiovascular: Rate and Rhythm: Normal rate and regular rhythm. Heart sounds: Normal heart sounds. No murmur. Pulmonary: Effort: Pulmonary effort is normal. No respiratory distress. Breath sounds: Normal breath sounds. Abdominal: General: Bowel sounds are normal. There is no distension. Palpations: Abdomen is soft. Tenderness: There is no tenderness. Lymphadenopathy: Cervical: No cervical adenopathy. Skin: Capillary Refill: Capillary refill takes less than 2 seconds. Neurological: Mental Status: She is alert. Health Maintenance Due Topic Date Due HEPATITIS C SCREENING 1953 Falls Risk Assessment 1953 DEPRESSION SCREENING (PHQ9) 1955 TETANUS EVERY 10 YR 1953 Colorectal Cancer Screening: Colonoscopy 1955 Mammogram 1955 Dexa Scan 1955 Wellness Visit 1958 Zoster Vaccines (1 of 2) 2003 PNEUMOCOCCAL VACCINE AGE 65+ (1 of 2 - PCV13) 2018 SEQUENTIAL INFLUENZA VACCINE (1) 06/06/2019 Goals None For any new medications prescribed today, patient was educated about indications for the medication, how to take the medication and potential side effects of the medications. documented in this encounter* Tao Hung DO - 07/20/2019 2:35 PM EDT Associated Order(s): Ear cerumen removal Post-Procedure Diagnose(s): Bilateral impacted cerumen Ear cerumen removal Date/Time: 07/20/2019 2:35 PM Performed by: Tao Hung DO Authorized by: Tao Hung DO Verbal consent: obtained Consent given by: patient Anesthesia: Local Anesthetic: none Location details: right ear and left ear Procedure Type: curette no residual material in ear post cerumen removal Patient sedated: no Patient tolerance: Patient tolerated the procedure well with no immediate complications Comments: I debrided the patient ear(s) using microscope and instrumentation. I will see them back in 6 months or earlier if needed. * Tao Hung DO - 07/20/2019 2:16 PM EDT Subjective Patient ID: Vilma Carrera is a 63 y.o. female. 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 TM perforation on 06/11/2019, rx'd prednisone and oral ATB. She states her ears itching. She states it happens every fall. Per patient, she states PCP said she has fluid on the right ear and they are red. Duration: Location: b/l Severity: low, A ssociated symptoms: Tinnitus. Decrease in hearing, muffled on right. No recent audiograms. The following portions of the patient's history were reviewed and updated as appropriate: allergies, current medications, past family history, past medical history, past social history, past surgicalhistory and problem list. Review of Systems Constitutional: Negative for chills and diaphoresis. HENT: Negative for ear discharge and ear pain. Eyes: Negative for discharge and redness. Respiratory: Negative for apnea and cough. Cardiovascular: Negative for chest pain and palpitations. Musculoskeletal: Negative for neck pain and neck stiffness. Skin: Negative for color change and pallor. Allergic/Immunologic: Negative for immunocompromised state. Neurological: Negative for facial asymmetry and numbness. Hematological: Does not bruise/bleed easily. Psychiatric/Behavioral: Negative for agitation and confusion. Objective Physical Exam Constitutional: Appearance: She is well-developed. Comments: The patient is well-developed and well-nourished without obvious deformity. HENT: Head: Normocephalic and atraumatic. Right Ear: Tympanic membrane, ear canal and external ear normal. Left Ear: Tympanic membrane, ear canal and external ear normal. Nose: Nose normal. Eyes: General: Lids are normal. Conjunctiva/sclera: Conjunctivae normal. Left eye: No chemosis. Pupils: Pupils are equal, round, and reactive to light. Neck: Musculoskeletal: Normal range of motion and neck supple. Thyroid: No thyromegaly. Trachea: No tracheal deviation. Cardiovascular: Rate and Rhythm: Normal rate and regular rhythm. Heart sounds: Normal heart sounds. Pulmonary: Effort: Pulmonary effort is normal. Breath sounds: Normal breath sounds. No stridor. Lymphadenopathy: Head: Right side of head: No submental, submandibular, preauricular, posterior auricular or occipital adenopathy. Left side of head: No submental, submandibular, preauricular, posterior auricular or occipital adenopathy. Cervical: No cervical adenopathy. Right cervical: No superficial cervical adenopathy. Left cervical: No superficial or deep cervical adenopathy. Skin: General: Skin is warm and dry. Neurological: Mental Status: She is alert and oriented to person, place, and time. Coordination: Coordination normal. Gait: Gait normal. Comments: Cranial nerves 2-12 are grossly intact Fine motor touch and tracking appear normal. Psychiatric: Mood and Affect: Mood is not anxious. Affect is not angry. Speech: Speech is not delayed or slurred. Behavior: Behavior normal. Behavior is not agitated or aggressive. Assessment/Plan: Diagnoses and all orders for this visit: Bilateral impacted cerumen - Ear cerumen removal I debrided the patient ear(s) using microscope and instrumentation. I will see them back in 6 months or earlier if needed. Tinnitus of both ears Comments: - noted on physical exam, Unclear if perforation is present. with chronic hx of infections, will send to ENT. Orders: - Ambulatory referral to ENT - Ambulatory referral to Audiology; Future Normal audiologic evaluation today. Follow up as needed for this issue. Itching of ear Discussed with patient the effects of using cue tips in their ears as it relates to itching and thepurpose of wax in the canals. I have encourage the patient to stop using cue tips in their ear canals and, to help with ear canal itch, to use sweet oil (extra virgin olive oil) to the opening of theear canals. This will help condition the ear canal skin and decrease the itch response. documented in this encounter* Kianna Daley MD - 12/07/2019 1:50 PM EST Vilma Carrera is a 64 y.o. female Assessment/Plan: Problem List Items Addressed This Visit Cardiovascular and Mediastinum Essential hypertension - Primary - Chronic, has been uncontrolled. She has always been hesitant to start medication. She has many adverse reactions to several medications. She has tried metoprolol per chart review. She has also tried losartan and Lisinopril. Would avoid HCTZ as she is already having increase urination. She states that Bystolic has been successful in the past and we will restart this. Relevant Medications nebivoloL (BYSTOLIC) 5 MG tablet Other Headache - May be due to a migraine vs untreated high blood pressure. No headache today and no neurological deficits. Will keep a headache diary. Will have her follow up in a few weeks to review. Discuss precautions on when to seek medical attention. Continue tylenol for headaches. Return in about 1 month (around 01/07/2020) for Annual physical/BP f/u. Vilma Carrera is a 64 y.o. female who presents for Chief Complaint Patient presents with Migraine Hypertension HPI 64 y/o female with uncontrolled HTN and chronic seasonal allergies who presents with concern for migraine and elevated Blood pressures. HTN: Home monitoring 150/90's Medications and adherence: Not on any medications. Feels like she gets too many side effects from medications. 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 Side effects to medication: yes, rash with some BP meds, feels bad on metoprolol and has a cough with losartan and lisinopril. Diets/weight loss: trying to lose weight, following guten free, avoiding late night meals. More rope and twisting on a board, 15-20 mins Pertinent negatives include no chest pain, SOB, visual changes, palpitations or dysuria. She has had two headaches recently. Started with a flash of light in the right eye. Improved on itsown about 1.5 hrs later It improved on its own. She feels like there is a film over the eye as well. Headache starts in theback of her head. Last eye appt was in August. Has a h/o migraines as well. No neurological deficits. Not having a migraine today. Patient Active Problem List Diagnosis Calcific tendinitis of left shoulder region Essential hypertension Diaphoresis Seasonal allergic rhinitis Asthma Tinnitus of both ears Bilateral impacted cerumen Itching of ear Hypothyroidism Headache Past Surgical History: Procedure Laterality Date LAMINECTOMY 1997 Family History Problem Relation Age of Onset Clotting disorder Mother Esophageal cancer Father Nephrolithiasis Sister Heart attack Other Allergies Other Hypothyroidism Other Diabetes Other Social History Tobacco Use Smoking status: Never Smoker Smokeless tobacco: Never Used Substance Use Topics Alcohol use: Yes Alcohol/week: 1.0 standard drinks Types: 1 Standard drinks or equivalent per week Comment: nightly Drug use: No Current Outpatient Medications Medication Sig Dispense Refill acetaminophen (TYLENOL) 325 MG tablet Take 650 mg by mouth every 6 (six) hours as needed for pain. albuterol 90 mcg/actuation inhaler Inhale 2 (two) puffs every 6 (six) hours as needed for wheezing . 1 Inhaler 0 CINNAMON BARK ORAL Take 1 capsule by mouth daily. coenzyme Q10 (CO Q-10) 100 mg capsule Take 100 mg by mouth daily. montelukast (SINGULAIR) 10 mg tablet Take 1 (one) tablet (10 mg total) by mouth nightly . 30 tablet3 s-adenosylmethionine (MARISOL-E, ENTERIC COATED,) 200 mg TbEC Take 1 tablet by mouth 2 (two) times a day. Synthroid 88 mcg tablet Take 1 (one) tablet (88 mcg total) by mouth daily . 90 tablet 3 nebivoloL (BYSTOLIC) 5 MG tablet Take 1 (one) tablet (5 mg total) by mouth daily . 30 tablet 11 No current facility-administered medications for this visit. Review of Systems Constitutional: Negative for appetite change, diaphoresis and fatigue. HENT: Positive for sinus pressure. Negative for congestion, rhinorrhea, sinus pain and sneezing. Eyes: Negative for photophobia, pain and visual disturbance. Respiratory: Negative for cough and shortness of breath. Cardiovascular: Negative for chest pain, palpitations and leg swelling. Gastrointestinal: Negative for abdominal pain, nausea and vomiting. Genitourinary: Negative for dysuria. Musculoskeletal: Negative for back pain. Skin: Negative for rash and wound. Allergic/Immunologic: Positive for environmental allergies. Neurological: Negative for dizziness, weakness, light-headedness, numbness and headaches. Psychiatric/Behavioral: Negative for confusion, decreased concentration and sleep disturbance. Physical Exam: BP (!) 187/100 (BP Location: Right arm, Patient Position: Sitting, BP Cuff Size: Adult) Pulse 98 Resp 16 Ht 5' 4 Wt 80.3 kg (177 lb) SpO2 96% BMI 30.38 kg/m Wt Readings from Last 3 Encounters: 12/07/19 80.3 kg (177 lb) 08/11/19 80.5 kg (177 lb 8 oz) 07/20/19 80.6 kg (177 lb 12.8 oz) BP Readings from Last 3 Encounters: 12/07/19 (!) 187/100 08/11/19 (!) 169/96 07/20/19 (!) 191/94 Physical Exam Vitals signs reviewed. Constitutional: General: She is not in acute distress. Appearance: She is well-developed. She is not ill-appearing or diaphoretic. HENT: Head: Normocephalic and atraumatic. Right Ear: Tympanic membrane normal. Left Ear: Tympanic membrane normal. Nose: Nose normal. No congestion or rhinorrhea. Mouth/Throat: Mouth: Mucous membranes are moist. Pharynx: No oropharyngeal exudate or posterior oropharyngeal erythema. Eyes: Extraocular Movements: Extraocular movements intact. Conjunctiva/sclera: Conjunctivae normal. Pupils: Pupils are equal, round, and reactive to light. Neck: Musculoskeletal: Normal range of motion. Cardiovascular: Rate and Rhythm: Normal rate and regular rhythm. Heart sounds: Normal heart sounds. No murmur. Pulmonary: Effort: Pulmonary effort is normal. No respiratory distress. Breath sounds: Normal breath sounds. Musculoskeletal: Right lower leg: No edema. Left lower leg: No edema. Lymphadenopathy: Cervical: No cervical adenopathy. Skin: Capillary Refill: Capillary refill takes less than 2 seconds. Neurological: General: No focal deficit present. Cranial Nerves: No cranial nerve deficit. Gait: Gait normal. Psychiatric: Mood and Affect: Mood normal. Behavior: Behavior normal. Health Maintenance Due Topic Date Due HEPATITIS C SCREENING 1953 Falls Risk Assessment 1953 Depression Screening (PHQ9) 1955 TETANUS EVERY 10 YR 1953 Colorectal Cancer Screening: Colonoscopy 1953 Mammogram 1953 Dexa Scan 1955 Wellness Visit 1956 Zoster Vaccines (1 of 2) 2003 PNEUMOCOCCAL VACCINE AGE 65+ (1 of 2 - PCV13) 2018 SEQUENTIAL INFLUENZA VACCINE (1) 06/06/2019 Goals None For any new medications prescribed today, patient was educated about indications for the medication, how to take the medication and potential side effects of the medications. documented in this encounter* Kianna Daley MD - 04/03/2020 1:47 PM EDT Vilma Carrera is a 64 y.o. female Assessment/Plan: Problem List Items Addressed This Visit Endocrine Hypothyroidism Chronic, uncontrolled. Repeat TSH and T4 continue Synthroid. Relevant Orders TSH T4, Free Cardiovascular and Mediastinum Essential hypertension -Chronic, per patient history blood pressures are normal at home however in the office her blood pressures have been elevated several times. She was on Bystolic but decided to stop this due to side effects. She is currently on lisinopril. Encouraged her to continue her medication. 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 She appears well today in no acute distress. Relevant Medications lisinopriL (PRINIVIL,ZESTRIL) 10 MG tablet Other Well female exam with routine gynecological exam - Primary Well woman exam -Counseled on healthy diet. -Counseled on importance of exercise - 150mins/ week of moderate activity as tolerated -Immunizations reviewed. -Counseled on importance of regular tooth brushing, flossing, and dental visits -Lab screening for hyperlipidemia, A1C for diabetes ordered -Discussed pap recommendations/follow up-completed today and if normal no longer needs to get in. -Discussed breast cancer screening-obtain mammogram -Discussed colon cancer screening-obtain previous colonoscopy results. Relevant Orders Thinprep Pap Smear Other Visit Diagnoses Encounter for screening for cardiovascular disorders Relevant Orders Basic Metabolic Panel Lipid Panel Pelvic pain -With history we will get a pelvic ultrasound. Suspected fibroid versus cyst. Relevant Orders US Transvaginal Postmenopausal Relevant Orders XR Bone Density DEXA Axial Dysuria Relevant Orders POC Urinalysis Dipstick, Auto (Completed) Return in about 6 months (around 10/03/2020) for HTN f/u. Vilma Bill Carrera is a 64 y.o. female who presents for Chief Complaint Patient presents with Gynecologic Exam HPI This is a G4, P4 postmenopausal female who presents today for her well female exam. She is also having abdominal pain. she also has a history of high blood pressure. Abdominal pain: Mostly in the left lower quadrant but also in the middle. Intermittent. Has had this in the past when her thyroid was off. Described as menstrual pain but with no vaginal bleeding. Also having lower back pain. Aching and cramping in nature. She has been having accidents for the pastfor 5 months with frequency and urgency. She did [employer] in the past and is trying to continue that. Urine has no odor. She is using Pyridium to avoid UTI. She is not currently sexually active. She states that in 2009 she was diagnosed with a left ovarian cyst that has ruptured but not resolved. Was removed surgically. HTN: cannot take Bystolic anymore because it cause dizziness/lightheadedness, coughing. She restarted an old lisinopril prescription which she prefers. States that she checks her blood pressure at home and it is normally 120's/80's. She does not want to change her dose. She denies any headache, CP,SOB or vision changes. No family history of breast cancer. Mammogram was done in [place]. Her colonoscopy she believes is up-to-date. Patient Active Problem List Diagnosis Calcific tendinitis of left shoulder region Essential hypertension Diaphoresis Seasonal allergic rhinitis Asthma Tinnitus of both ears Bilateral impacted cerumen Itching of ear Hypothyroidism Headache Well female exam with routine gynecological exam Past Surgical History: Procedure Laterality Date LAMINECTOMY 1997 Family History Problem Relation Age of Onset Clotting disorder Mother Esophageal cancer Father Nephrolithiasis Sister Heart attack Other Allergies Other Hypothyroidism Other Diabetes Other Social History Tobacco Use Smoking status: Never Smoker Smokeless tobacco: Never Used Substance Use Topics Alcohol use: Yes Alcohol/week: 1.0 standard drinks Types: 1 Standard drinks or equivalent per week Comment: nightly Drug use: No Current Outpatient Medications Medication Sig Dispense Refill acetaminophen (TYLENOL) 325 MG tablet Take 650 mg by mouth every 6 (six) hours as needed for pain. albuterol 90 mcg/actuation inhaler Inhale 2 (two) puffs every 6 (six) hours as needed for wheezing . 1 Inhaler 0 CINNAMON BARK ORAL Take 1 capsule by mouth daily. coenzyme Q10 (CO Q-10) 100 mg capsule Take 100 mg by mouth daily. lisinopriL (PRINIVIL,ZESTRIL) 10 MG tablet Take by mouth daily . montelukast (SINGULAIR) 10 mg tablet TAKE 1 TABLET BY MOUTH EVERY EVENING 30 tablet 3 s-adenosylmethionine (MARISOL-E, ENTERIC COATED,) 200 mg TbEC Take 1 tablet by mouth 2 (two) times a day. Synthroid 88 mcg tablet Take 1 (one) tablet (88 mcg total) by mouth daily . 90 tablet 3 No current facility-administered medications for this visit. Review of Systems Constitutional: Negative for appetite change, chills, diaphoresis, fatigue and fever. Eyes: Negative for visual disturbance. Respiratory: Negative for cough and shortness of breath. Cardiovascular: Negative for chest pain, palpitations and leg swelling. Gastrointestinal: Negative for abdominal pain, diarrhea, nausea and vomiting. Endocrine: Negative for polydipsia, polyphagia and polyuria. Genitourinary: Positive for dysuria, frequency, pelvic pain and urgency. Negative for decreased urine volume, difficulty urinating and flank pain. Musculoskeletal: Negative for back pain. Skin: Negative for rash and wound. Neurological: Negative for dizziness, weakness, light-headedness, numbness and headaches. Hematological: Negative for adenopathy. Psychiatric/Behavioral: Negative for confusion and sleep disturbance. Physical Exam: BP (!) 183/94 (BP Location: Right arm) Pulse 89 Temp 98.2 F (36.8 C) (Temporal) Resp 18 Ht 5' 4 Wt 81.2 kg (179 lb) SpO2 96% BMI 30.73 kg/m Wt Readings from Last 3 Encounters: 04/03/20 81.2 kg (179 lb) 12/07/19 80.3 kg (177 lb) 08/11/19 80.5 kg (177 lb 8 oz) BP Readings from Last 3 Encounters: 04/03/20 (!) 183/94 12/07/19 (!) 187/100 08/11/19 (!) 169/96 Physical Exam Vitals signs reviewed. 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 Constitutional: General: She is not in acute distress. Appearance: She is not ill-appearing. HENT: Head: Normocephalic and atraumatic. Eyes: Conjunctiva/sclera: Conjunctivae normal. Neck: Musculoskeletal: Normal range of motion. Thyroid: No thyromegaly. Vascular: No carotid bruit. Cardiovascular: Rate and Rhythm: Normal rate and regular rhythm. Pulses: Normal pulses. Heart sounds: Normal heart sounds. No murmur. Pulmonary: Effort: Pulmonary effort is normal. No respiratory distress. Breath sounds: Normal breath sounds. Abdominal: General: Abdomen is flat. Bowel sounds are normal. Palpations: Abdomen is soft. Tenderness: There is abdominal tenderness in the suprapubic area. Hernia: No hernia is present. Genitourinary: General: Normal vulva. Vagina: Normal. Cervix: Normal. Uterus: Enlarged and tender. Adnexa: Right adnexa normal and left adnexa normal. Right: No fullness. Left: No fullness. Musculoskeletal: Right lower leg: No edema. Left lower leg: No edema. Lymphadenopathy: Cervical: No cervical adenopathy. Skin: Capillary Refill: Capillary refill takes less than 2 seconds. Neurological: General: No focal deficit present. Mental Status: She is alert. Sensory: No sensory deficit. Gait: Gait normal. Deep Tendon Reflexes: Reflexes normal. Psychiatric: Mood and Affect: Mood normal. Behavior: Behavior normal. Thought Content: Thought content normal. Health Maintenance Due Topic Date Due Falls Risk Assessment 1955 Tetanus: Every 10yrs 1955 Colorectal Cancer Screening: Colonoscopy 1955 Mammogram 1955 Dexa Scan 1955 Zoster Vaccines (1 of 2) 2003 Pneumococcal Vaccine Age 65+ (1 of 2 - PCV13) 2018 For any new medications prescribed today, patient was educated about indications for the medication, how to take the medication and potential side effects of the medications. documented in this encounter* Kianna Daley MD - 06/29/2020 2:06 PM EDT Vilma Carrera is a 64 y.o. female Assessment/Plan: Problem List Items Addressed This Visit Respiratory Asthma Chronic, currently controlled. Continue your albuterol Relevant Medications albuterol 90 mcg/actuation inhaler Other Knee pain Knee is stable with no instability noted on exam today. With h/o trauma, I do recommend imaging. I have ordered that today. No signs of infection. trial of prednisone since you are unable to tolerateNSAIDS Relevant Medications predniSONE (DELTASONE) 10 MG tablet Other Relevant Orders XR Knee Left 2 Views (Standard) Acute left ankle pain - Primary History and exam suggest that this is likely a sprain. You are osteopenic and may have increase fracture risk. I think it is reasonable to obtain an Xray. I encourage you to wrap the ankle and ICE it2-3 times per day. We are demonstrated today how to wrap. Remember to rest and elevate. Relevant Medications predniSONE (DELTASONE) 10 MG tablet Other Relevant Orders XR Foot Left 3+ Views (Standard) XR Ankle Left 3+ Views (Standard) Return in about 6 weeks (around 08/10/2020) for Recheck-Foot/ankle/knee pain. Ivlma Bill Carrera is a 64 y.o. female who presents for Chief Complaint Patient presents with Knee Pain Left knee. Is seeing chiro. Foot Pain Left foot. HPI 64 y/o F with h/o back surgery, HTN and hypothyroidism who presents with acute foot pain. Foot Pain started on Friday after she stepped over her dog. Located on the left. It is now swollen.Feels sore. 10 in pain. She has a h/o fracture in 2000 in that ankle, she did have surgery, a pinwas placed and removed 2 years later. Worse with walking. Better with ice and pain relief creams. Also taking two ibuprofen three times a day which helped. She has associated knee pain. Fell off her tractor mid April and hurt both knee and lower back. Right knee is better. The left one is still painful and has pain up and down her leg. She used a ultrasound machine but not better still. She is working with a chiropractor. No imaging completed. Feels like knee is swollen, cannot bend knee. Numbness that starts at the buttock and comes all the way down which is chronic for her and worse when shesits too long. She denies any falls although she feels like the knee charles and is weak. Patient Active Problem List Diagnosis Calcific tendinitis of left shoulder region Essential hypertension Diaphoresis Seasonal allergic rhinitis Asthma Tinnitus of both ears Bilateral impacted cerumen Itching of ear Hypothyroidism Headache Acute left ankle pain Knee pain Past Surgical History: Procedure Laterality Date LAMINECTOMY 1997 Family History Problem Relation Age of Onset Clotting disorder Mother Esophageal cancer Father Nephrolithiasis Sister Heart attack Other Allergies Other Hypothyroidism Other Diabetes Other Osteoporosis Neg Hx Social History Tobacco Use Smoking status: Never Smoker Smokeless tobacco: Never Used Substance Use Topics Alcohol use: Yes Alcohol/week: 1.0 standard drinks Types: 1 Standard drinks or equivalent per week Comment: nightly Drug use: No Current Outpatient Medications Medication Sig Dispense Refill acetaminophen (TYLENOL) 325 MG tablet Take 650 mg by mouth every 6 (six) hours as needed for pain. albuterol 90 mcg/actuation inhaler Inhale 2 (two) puffs every 6 (six) hours as needed for wheezing . 1 Inhaler 0 cholecalciferol, vitamin D3, (VITAMIN D3 ORAL) Take 1,000 mg by mouth daily . coenzyme Q10 (CO Q-10) 100 mg capsule Take 100 mg by mouth daily. JQBD-SUKQP-DNA-D3-HYAL-CATE BOR ORAL Take by mouth daily . magnesium 250 mg Tab Take by mouth . montelukast (SINGULAIR) 10 mg tablet TAKE 1 TABLET BY MOUTH EVERY EVENING 90 tablet 1 s-adenosylmethionine (MARISOL-E, ENTERIC COATED,) 200 mg TbEC Take 1 tablet by mouth 2 (two) times a day. Synthroid 88 mcg tablet Take 1 (one) tablet (88 mcg total) by mouth daily . 90 tablet 3 Bystolic 5 mg tablet Take 5 mg by mouth daily . predniSONE (DELTASONE) 10 MG tablet 4 tablets daily x 3 days, 3 tablets daily x 3 days, 2 tablets daily x 3 days, 1 tablet daily x 3 days . 30 tablet 0 No current facility-administered medications for this visit. Review of Systems Constitutional: Positive for activity change. Negative for diaphoresis, fatigue and unexpected weight change. Genitourinary: Negative. Musculoskeletal: Positive for arthralgias, gait problem and joint swelling. Negative for back pain,myalgias, neck pain and neck stiffness. Skin: Negative for color change, pallor, rash and wound. Neurological: Positive for numbness. Negative for tremors and weakness. Hematological: Negative for adenopathy. Physical Exam: BP (!) 161/90 (BP Location: Left arm, Patient Position: Sitting, BP Cuff Size: Adult) Pulse 85 Temp 97.6 F (36.4 C) (Skin) Resp 17 Wt 81.6 kg (179 lb 12.8 oz) BMI 30.86 kg/m Wt Readings from Last 3 Encounters: 06/29/20 81.6 kg (179 lb 12.8 oz) 04/03/20 81.2 kg (179 lb) 12/07/19 80.3 kg (177 lb) BP Readings from Last 3 Encounters: 06/29/20 (!) 161/90 04/03/20 (!) 183/94 12/07/19 (!) 187/100 Physical Exam Constitutional: General: She is not in acute distress. Appearance: She is not ill-appearing. HENT: Head: Normocephalic. Eyes: Conjunctiva/sclera: Conjunctivae normal. Cardiovascular: Rate and Rhythm: Normal rate. Pulmonary: Effort: Pulmonary effort is normal. Musculoskeletal: Left hip: Normal. Left knee: Normal. She exhibits normal range of motion, no swelling, no LCL laxity, no bony tenderness and no MCL laxity. No tenderness found. No medial joint line and no lateral joint line tenderness noted. Left ankle: She exhibits normal range of motion, no swelling, no deformity and normal pulse. Tenderness. Lateral malleolus and AITFL tenderness found. No head of 5th metatarsal tenderness found. Achilles tendon normal. Skin: Findings: No rash. Neurological: Mental Status: She is alert and oriented to person, place, and time. Psychiatric: Mood and Affect: Mood normal. Behavior: Behavior normal. Thought Content: Thought content normal. Health Maintenance Due Topic Date Due Tetanus: Every 10yrs 1955 Mammogram 1955 Colorectal Cancer Screening 2003 Zoster Vaccines (1 of 2) 2003 Pneumococcal Vaccine Age 65+ (1 of 2 - PCV13) 2018 Sequential Influenza Vaccine (1) 06/06/2020 Please note: Portions of this chart may have been created with [employer] voice recognition software. Occasional wrong-word or sound-like substitutions may have occurred due to inherent limitations of the voice recognition software. Please read the chart carefully and recognize, using context, where the substitutions have occurred. For any new medications prescribed today, patient was educated about indications for the medication, how to take the medication and potential side effects of the medications. documented in this encounter* Brent Hudson, PT - 09/14/2020 1:45 PM EST [facility] Evaluation Today's Date 09/14/2020 Patient Name: Vilma Carrera Date of : 1955 Case Name: L knee (and hip) Functional Diagnosis: 1. Acute left ankle pain 2. Acute pain of left knee Clinical Information: Subjective Referring Diagnosis: L knee and ankle pain - possibly related to SIjt History of Present Illness Date of Onset: 04/21/2020 Chief Complaint/ Mechanism of Injury: JACKY: Fell off her riding mower/tractor, landed awkwardly CC: Pain and stiffness in hip, knee and down to the ankle; Previous Treatments: prednisone helps, currently on 2nd round. Previous Imaging: X-ray and MRI Status: unchanged Hand dominance: right Pain Scale: Average Pain: 6/10 Pain at highest: 8/10 Aggravating factors: sitting, standing, squatting, bending Easing factors: RUM Personal Goals: Pain free Social History Presybeterian, social, or cultural considerations to be made aware of before starting treatment: No Lumbar Spine Special Tests SIJ dysfunction: SIJ Dysfunction Positive mechanical support test on donning and doffing. Tenderness B PSIS Palpation/ Tenderness: glute med/min, quadratus lumborum with referred sensatoins to hip, thigh andgroin areas, also PSIS And tenderness in peroneus longus - classic SIjt referred pain pattern. FOTO Score: 31 Knee Right Knee Range of Motion: Flexion Active: 123 Extension Active: 0 Muscle Strength: Flexion: 4- Extension: 4- Quad Set: good Left Knee Range of Motion: Flexion Active: 125 Extension Active: 0 Muscle Strength Flexion: 4+ Extension: 4+ Tenderness in VMO, vastus lateralis, glute med/min, quadratus lumborum with referred sensatoins to hip, thigh and groin areas, also PSIS And tenderness in peroneus longus. Treatments: Physical Therapy Exercise Log - 09/14/201948 OTHER Vitals 1:50-2:40 Therapeutic Exercise (69273) Intervention NuStep Intervention Bridges Intervention clamshells Intervention side leg raise Intervention Tband lateral stepping Treatment Plan: Frequency of Visits: 5 times per week Duration: 5 weeks Interventions: Therapeutic Exercise, Neuromuscular Re-Education, Manual Therapy, Therapeutic/ Functional Activities, Self Care, Hot/Cold Pack, Electrical Stimulation, Electrical Stimulation-Attended,Ultrasound, Vasopneumatic and Dry Needling Rehab Potential: good Goals: Physical Therapy Ortho Goals: 1. The patient will safely, correctly and independently demonstrate the ability to perform a progressive HEP to achieve maximal rehabilitation potential and prevent this condition from recurring. 2. Able to tolerate sitting for 2+ hours continuously; able to manipulate/move up to 40# rarely in floor to waist range. 3. Able to perform 1+min holds in multiple core stability activitities. 4. Resumption of full PLOF ADL at home and in recreational activities. 5 Decrease pain from 3/10 with activity to 2/10 or less with full duty activity at home and work 6. Patient to be independent with pain management methods including specific localized self application of thermal and/or cryo agents, stretching/self- mobilization, self-taping/supportive devices, localized tissue manipulation/pressure, self massage, and OTC topical analgesics; and awareness of products which may be available to assist in these strategies. 7. Patient to effectively apply relevant principles of regional body biomechanics and task related ergonomics. 8. Patient to verbalize adequate understanding of rehabilitation process; also ability to recognizesigns and sx of too much or dysfunctional exercise, activity, or posture. 9. Patient will increase FOTO score from 31 to at least 53 to show MDC/MCII and expected functionaloutcome in 6 weeks Patient Education provided: See Self Care Clinical Impression: Client presents with knee pain which is largely referred from TrPs in her hip and lower back mm. Seems to be connected to her spinal fusion and related SIjt pain d/t loss of lumbar mobility and increased stress on SIjt. Brent Hudson PT State License, [id number] documented in this encounter* Machelle Torres, DIVINITY TEACHER - 09/20/2020 1:45 PM EST [facility] DAILY TREATMENT NOTE Today's Date 09/20/2020 Patient Name: Vilma Carrera Date of : 1955 Current Visit #: 2 Authorized Visits: 199 Case Name: L knee (and hip) History: Pre-Treatment Pain Scale: 5 Symptoms: 2nd visit Functional Diagnosis: 1. Acute left ankle pain 2. Acute pain of left knee Clinical Information: Subjective: Pt comes in today with c/o pain down the shins. She has been wearing a SI belt since IEand states that it is making a world of difference for her. She states that she was able to get here and out of car without trouble. Feels that both legs are now getting affected with pains though and is questioning why this is happening. Ambulates into clinic with noteable limp, antalgic gait mamta carrillo. Objective: Began with Nustep warm up for SI joint/LB/core/B LE's. Pt performed gentle strengtheningex's per log to improve functional ROM, strength and stability in SI joint/LB/core/B LE's. Ended with CP to reduce symptoms. Treatments: Physical Therapy Exercise Log - 09/20/20 1339 OTHER Notes Donal-PT Vitals 1:39PM-2:36PM Therapeutic Exercise ([id number]) Intervention NuStep L2 5' Parameters abd.bracing 5 10x1 Intervention Bridges 3 4x1 (HS cramping down R LE) Parameters abd.bracing with marches 10x1 Intervention clamshells 5x2 (core focus) Parameters SKTC with towel 10 x5 B (core focus) Intervention side leg raise 5x2 B (core focus) Parameters SLR 5x2 B (core focus) Intervention Tband lateral stepping YTB x2 laps at plinth Additional Exercises Add more exercises? Yes Modalities Modalities Cold packs Parameters B knees and L hip, 10' PT Treatment Times Therex Total Time 47 Modalities Total Time 10 Direct Treatment Time 57 Goals: Physical Therapy Ortho Goals: 1. The patient will safely, correctly and independently demonstrate the ability to perform a progressive HEP to achieve maximal rehabilitation potential and prevent this condition from recurring. 2. Able to tolerate sitting for 2+ hours continuously; able to manipulate/move up to 40# rarely in floor to waist range. 3. Able to perform 1+min holds in multiple core stability activitities. 4. Resumption of full PLOF ADL at home and in recreational activities. 5 Decrease pain from 3/10 with activity to 2/10 or less with full duty activity at home and work 6. Patient to be independent with pain management methods including specific localized self application of thermal and/or cryo agents, stretching/self- mobilization, self-taping/supportive devices, localized tissue manipulation/pressure, self massage, and OTC topical analgesics; and awareness of products which may be available to assist in these strategies. 7. Patient to effectively apply relevant principles of regional body biomechanics and task related ergonomics. 8. Patient to verbalize adequate understanding of rehabilitation process; also ability to recognizesigns and sx of too much or dysfunctional exercise, activity, or posture. 9. Patient will increase FOTO score from 31 to at least 53 to show MDC/MCII and expected functionaloutcome in 6 weeks Patient Education: Quality of movement, Written HEP, Verbal HEP and Pain Management with patient demonstrated understanding, verbalized understanding and written information provided . Post-Treatment Pain Scale: 5 Assessment: Patient had an expected response to treatment. Able to progress with new program without difficulty. Does struggle with SLR's this date but performs independently. Sent pt home with pics of new program for HEP. Great relief with CP. Pain comes back upon departure with WBing. Increased limp on the way out. Skilled Intervention demonstrated by modifications of treatment per exercise log including increased load and safety interventions per exercise log. Progress towards goals as expected. Plan for Next Visit: Treatment Visit with focus on improving functional mobility, strength, and stability in LB/core/B hips/B knees. Machelle Torres PTA STATE LICENSE, [id number] documented in this encounter* Machelle Torres PTA - 09/20/2020 1:45 PM EST [facility] DAILY TREATMENT NOTE Today's Date 09/20/2020 Patient Name: Vilma Carrera Date of : 1955 Current Visit #: 2 Authorized Visits: 199 Case Name: Toshia knee (and hip) History: Pre-Treatment Pain Scale: 5 Symptoms: 2nd visit Functional Diagnosis: 1. Acute left ankle pain 2. Acute pain of left knee Clinical Information: Subjective: Pt comes in today with c/o pain down the shins. She has been wearing a SI belt since IEand states that it is making a world of difference for her. She states that she was able to get here and out of car without trouble. Feels that both legs are now getting affected with pains though and is questioning why this is happening. Ambulates into clinic with noteable limp, antalgic gait patte rn. Objective: Began with Nustep warm up for SI joint/LB/core/B LE's. Pt performed gentle strengtheningex's per log to improve functional ROM, strength and stability in SI joint/LB/core/B LE's. Ended with CP to reduce symptoms. Treatments: Physical Therapy Exercise Log - 09/20/20 1339 OTHER Notes Donal-PT Vitals 1:39PM-2:36PM Therapeutic Exercise ([id number]) Intervention NuStep L2 5' Parameters abd.bracing 5 10x1 Intervention Bridges 3 4x1 (HS cramping down R LE) Parameters abd.bracing with marches 10x1 Intervention clamshells 5x2 (core focus) Parameters SKTC with towel 10 x5 B (core focus) Intervention side leg raise 5x2 B (core focus) Parameters SLR 5x2 B (core focus) Intervention Tband lateral stepping YTB x2 laps at plinth Additional Exercises Add more exercises? Yes Modalities Modalities Cold packs Parameters B knees and L hip, 10' PT Treatment Times Therex Total Time 47 Modalities Total Time 10 Direct Treatment Time 57 Goals: Physical Therapy Ortho Goals: 1. The patient will safely, correctly and independently demonstrate the ability to perform a progressive HEP to achieve maximal rehabilitation potential and prevent this condition from recurring. 2. Able to tolerate sitting for 2+ hours continuously; able to manipulate/move up to 40# rarely in floor to waist range. 3. Able to perform 1+min holds in multiple core stability activitities. 4. Resumption of full PLOF ADL at home and in recreational activities. 5 Decrease pain from 3/10 with activity to 2/10 or less with full duty activity at home and work 6. Patient to be independent with pain management methods including specific localized self application of thermal and/or cryo agents, stretching/self- mobilization, self-taping/supportive devices, localized tissue manipulation/pressure, self massage, and OTC topical analgesics; and awareness of products which may be available to assist in these strategies. 7. Patient to effectively apply relevant principles of regional body biomechanics and task related ergonomics. 8. Patient to verbalize adequate understanding of rehabilitation process; also ability to recognizesigns and sx of too much or dysfunctional exercise, activity, or posture. 9. Patient will increase FOTO score from 31 to at least 53 to show MDC/MCII and expected functionaloutcome in 6 weeks Patient Education: Quality of movement, Written HEP, Verbal HEP and Pain Management with patient demonstrated understanding, verbalized understanding and written information provided . Post-Treatment Pain Scale: 5 Assessment: Patient had an expected response to treatment. Able to progress with new program without difficulty. Does struggle with SLR's this date but performs independently. Sent pt home with pics of new program for HEP. Great relief with CP. Pain comes back upon departure with WBing. Increased limp on the way out. Skilled Intervention demonstrated by modifications of treatment per exercise log including increased load and safety interventions per exercise log. Progress towards goals as expected. Plan for Next Visit: Treatment Visit with focus on improving functional mobility, strength, and stability in LB/core/B hips/B knees. Machelle Torres PTA STATE LICENSE, [id number] documented in this encounter* Cecil Marrero PTA - 09/22/2020 1:45 PM EST [facility] DAILY TREATMENT NOTE Today's Date 09/22/2020 Patient Name: Vilma Carrera Date of : 1955 Current Visit #: 3 Authorized Visits: 199 Case Name: L knee (and hip) History: Pre-Treatment Pain Scale: 4 Symptoms: stabilized Functional Diagnosis: 1. Acute left ankle pain 2. Acute pain of left knee Clinical Information: Subjective: Pt states felt good after last session and feels legs are getting stronger. Pt states was a little sore after last session. Pt states L sided LB/ SI region is a 3-4/10 today. Pt states sitting aggravates sxs and pain. Objective: Started with nustep for LE strengthening with increased time and resistance today. Cont with stretching to decrease tightness with addition of piriformis stretching today for improvement of tightness/ sxs down L LE. Pt cont with core/ LE strengthening per flow sheet. Treatments: Physical Therapy Exercise Log - 09/22/20 [id number] OTHER Notes Donal-PT Vitals 1:45-2:30 Therapeutic Exercise ([id number]) Intervention NuStep L3 6' with UE use Parameters abd.bracing 5 10x1 Intervention Bridges 3 x10 Parameters abd.bracing with marches 10x1 Intervention clamshells x15 (core focus) Parameters SKTC with towel 10 x5 B (core focus) Intervention side leg raise x10 B (core focus) Parameters SLR x10 B (core focus) Intervention Tband lateral stepping YTB x2 laps at plinth Parameters piriformis stretch 20 x 3 B LE Additional Exercises Add more exercises? Yes Modalities Modalities -- Parameters -- PT Treatment Times Therex Total Time 45 Direct Treatment Time 45 Total Treatment Time 45 Goals: Physical Therapy Ortho Goals: 1. The patient will safely, correctly and independently demonstrate the ability to perform a progressive HEP to achieve maximal rehabilitation potential and prevent this condition from recurring. 2. Able to tolerate sitting for 2+ hours continuously; able to manipulate/move up to 40# rarely in floor to waist range. 3. Able to perform 1+min holds in multiple core stability activitities. 4. Resumption of full PLOF ADL at home and in recreational activities. 5 Decrease pain from 3/10 with activity to 2/10 or less with full duty activity at home and work 6. Patient to be independent with pain management methods including specific localized self application of thermal and/or cryo agents, stretching/self- mobilization, self-taping/supportive devices, localized tissue manipulation/pressure, self massage, and OTC topical analgesics; and awareness of products which may be available to assist in these strategies. 7. Patient to effectively apply relevant principles of regional body biomechanics and task related ergonomics. 8. Patient to verbalize adequate understanding of rehabilitation process; also ability to recognizesigns and sx of too much or dysfunctional exercise, activity, or posture. 9. Patient will increase FOTO score from 31 to at least 53 to show MDC/MCII and expected functionaloutcome in 6 weeks Patient Education: Quality of movement with patient demonstrated understanding. Post-Treatment Pain Scale: 0 Assessment: Patient had an expected response to treatment. Pt demos HS muscle cramps with performance of bridging. Pt cued for breathing with core engaged exercises. Pt eager to get improve and is will to do what she needs to do. Muscle fatigue post session and denies any pain post session. Skilled Intervention demonstrated by modifications of treatment per exercise log including increased load and safety interventions per exercise log. Progress towards goals as expected. Plan for Next Visit: Treatment Visit with focus on Cont POC Consider manual DTM to L piriformis region next session. Cecil Marrero PTA STATE LICENSE, [id number] documented in this encounter* Nidhi Kennedy, VERA - 09/25/2020 10:45 AM EST [facility] DAILY TREATMENT NOTE Today's Date 09/25/2020 Patient Name: Vilma Carrera Date of : 1955 Current Visit #: 4 Authorized Visits: 199 Case Name: L knee (and hip) History: Pre-Treatment Pain Scale: 3 Symptoms: gradually improved Functional Diagnosis: 1. Acute left ankle pain 2. Acute pain of left knee Clinical Information: Subjective: Pt. Reports that she has soreness of B quad however low this visit. Objective Completed therapeutic exercise to increase strength, flexibility, and endurance to mobility. Increased time and level on Nustep to increase endurance. Added resistance to s/l clams and increased distance for sidestepping to increase strength and stability for sitting endurance, ADL's, andrecreational activities. Treatments: Physical Therapy Exercise Log - 09/25/20 1050 OTHER Notes Donal-PT Vitals 10:50-11:35 Therapeutic Exercise ([id number]) Intervention NuStep L4 6' with UE use-09/25 increased level Parameters abd.bracing 5 10x1 Intervention Bridges 3 x10 Parameters abd.bracing with marches 10x1 Intervention clamshells x15 (core focus)-RTB-09/25 added resistance Parameters SKTC with towel 10 x5 B (core focus) Intervention side leg raise x10 B (core focus and correct form) Parameters SLR x10 B (core focus) Intervention Tband lateral stepping YTB x1 laps acrossed floor-09/25 increased distance Parameters piriformis stretch 20 x 3 B LE Additional Exercises Add more exercises? Yes Goals: Physical Therapy Ortho Goals: 1. The patient will safely, correctly and independently demonstrate the ability to perform a progressive HEP to achieve maximal rehabilitation potential and prevent this condition from recurring. 2. Able to tolerate sitting for 2+ hours continuously; able to manipulate/move up to 40# rarely in floor to waist range. 3. Able to perform 1+min holds in multiple core stability activitities. 4. Resumption of full PLOF ADL at home and in recreational activities. 5 Decrease pain from 3/10 with activity to 2/10 or less with full duty activity at home and work 6. Patient to be independent with pain management methods including specific localized self application of thermal and/or cryo agents, stretching/self- mobilization, self-taping/supportive devices, localized tissue manipulation/pressure, self massage, and OTC topical analgesics; and awareness of products which may be available to assist in these strategies. 7. Patient to effectively apply relevant principles of regional body biomechanics and task related ergonomics. 8. Patient to verbalize adequate understanding of rehabilitation process; also ability to recognizesigns and sx of too much or dysfunctional exercise, activity, or posture. 9. Patient will increase FOTO score from 31 to at least 53 to show MDC/MCII and expected functionaloutcome in 6 weeks Patient Education: Quality of movement, Verbal HEP and Pain Management with patient demonstrated understanding. Post-Treatment Pain Scale: 2 Assessment: Instructed pt. In completing all interventions as logged c Min c/o pn. Instructed pt. In completing Nustep with increased level and time. Instructed pt. In completing AB interventions with VC for breathing. Instructed pt. In completing SLR abduction with correct form required, increasedfatigue present. Instructed pt. In completing clams with TB added and VC for technique. Instructed pt. In completing sidestepping s UE support with increased distance with increased muscle fatigue present, requiring VC for form and to rest prn. Patient reported no pn following treatment. Patient had an expected response to treatment.. Skilled Intervention demonstrated by modifications of treatment per exercise log including decreased cueing and safety interventions per exercise log. Progress towards goals as expected. Plan for Next Visit: Continue to progress patient as tolerated, add nerve glide NV. Nidhi Kennedy PTA STATE LICENSE, [id number] documented in this encounter* Machelle Torres PTA - 10/10/2020 1:45 PM EST [facility] OUTPATIENT REHABILITATION DAILY TREATMENT NOTE Today's Date 10/10/2020 Patient Name: Vilma Carrera Date of : 1955 Current Visit #: 5 Authorized Visits: 199 Case Name: L knee (and hip) History: Pre-Treatment Pain Scale: 7 Symptoms: pain along lateral L knee and behind the knee Functional Diagnosis: 1. Acute left ankle pain 2. Acute pain of left knee Clinical Information: Subjective: Patient comes in with pain along lateral calf and behind the knee. She reports that shedid her ex's late last night. She has a difficult time yet with stairs, goes down sideways. Has been using a pillow to side-sleep and her body is adjusting to that. Noticed that she is able now to sleep on her L side again, progress there. Objective : Began with Nustep warm up for L hip/L knee/L ankle. Pt performed gentle strengthening ex's per log to improve functional ROM, strength and stability in L hip/L knee/L ankle. Increased reps where able to further challenge L hip/L knee/L ankle strength. Performed STM using hands and rollerbar to L posterior knee, L HS, L gastroc to promote healing and improve mobility. Treatments: Physical Therapy Exercise Log - 10/10/20 1348 OTHER Notes Donal-PT Vitals 1:49PM-2:33PM Therapeutic Exercise (93410) Intervention NuStep L4 6' with UE use-09/25 increased level Parameters abd.bracing 5 10x1 Intervention Bridges 3 x10 Parameters abd.bracing with marches 10x2 Intervention clamshells 10x1 B (core focus)-RTB Parameters SKTC with towel 10 x5 B (core focus) Intervention side leg raise 2x10 B (core focus and correct form) Parameters SLR x10 B (core focus) Intervention Tband lateral stepping YTB x1 laps acrossed floor-09/25 increased distance- NT Parameters piriformis stretch 20 x 3 B LE Manual Therapy ([id number]) Intervention STM using hands and rollbar to posterior knee, HS, gastroc 10' Additional Exercises Add more exercises? Yes PT Treatment Times Therex Total Time 34 Manual Therapy Total Time 10 Direct Treatment Time 44 Goals: Physical Therapy Ortho Goals: 1. The patient will safely, correctly and independently demonstrate the ability to perform a progressive HEP to achieve maximal rehabilitation potential and prevent this condition from recurring. 2. Able to tolerate sitting for 2+ hours continuously; able to manipulate/move up to 40# rarely in floor to waist range. 3. Able to perform 1+min holds in multiple core stability activitities. 4. Resumption of full PLOF ADL at home and in recreational activities. 5 Decrease pain from 3/10 with activity to 2/10 or less with full duty activity at home and work 6. Patient to be independent with pain management methods including specific localized self application of thermal and/or cryo agents, stretching/self- mobilization, self-taping/supportive devices, localized tissue manipulation/pressure, self massage, and OTC topical analgesics; and awareness of products which may be available to assist in these strategies. 7. Patient to effectively apply relevant principles of regional body biomechanics and task related ergonomics. 8. Patient to verbalize adequate understanding of rehabilitation process; also ability to recognizesigns and sx of too much or dysfunctional exercise, activity, or posture. 9. Patient will increase FOTO score from 31 to at least 53 to show MDC/MCII and expected functionaloutcome in 6 weeks Patient Education: Quality of movement, Verbal HEP and Pain Management with patient demonstrated understanding and verbalized understanding. Post-Treatment Pain Scale: 6 Assessment: Patient had an expected response to treatment. Able to progress with increased reps without difficulty. Pt struggles the most with bridges, SLR in side-lying. Great relief with STM this date. Pt reports that she is able to move the knee more freely upon departure. Encouraged pt to ice as needed for pain relief. Skilled Intervention demonstrated by modifications of treatment per exercise log including increased load and safety interventions per exercise log. Progress towards goals as expected. Plan for Next Visit: Treatment Visit with focus on improving functional mobility, strength, and stability in L knee/L hip./L ankle. Monitor response to increased program. Machelle Torres PTA STATE LICENSE, [id number] documented in this encounter* Swati Aguero PTA - 10/12/2020 1:45 PM EST [facility] OUTPATIENT REHABILITATION DAILY TREATMENT NOTE Today's Date 10/12/2020 Patient Name: Vilma Carrera Date of : 1955 Current Visit #: 6 Authorized Visits: 199 Case Name: L knee (and hip) History: Pre-Treatment Pain Scale: 4 Symptoms: stabilized Functional Diagnosis: 1. Acute left ankle pain 2. 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 Pt reports that the ibuprofen or prednisone have really helped but she doesn'twant to be on those forever. Pt reports she uses crutches when she gets up at night to use the bathroom. Pt reports she usually feels good when she leaves therapy but by the time she gets home, afteran almost half hour drive in the car, her pain returns. Objective Included gastroc stretch to relieve tightness. Tried standing hamstring stretch but pt experienced burning in L glute. Continued with core stability and lumbar stretches to improve function. Ended with STM to LLE, posterior aspect. Treatments: Physical Therapy Exercise Log - 10/12/20 9615 OTHER Notes Donal-PT Vitals 1:53-2:49 Therapeutic Exercise ([id number]) Intervention NuStep L4 6' with UE use Parameters abd.bracing 5 10x1 Intervention Bridges 3 2x10 Parameters abd.bracing with marches 10x2 Intervention clamshells 10x1 B (core focus)-RTB Parameters SKTC with towel 10 x5 B (core focus) Intervention side leg raise 2x10 B (core focus and correct form) Parameters SLR x10 B (core focus) Intervention -- Parameters -- Intervention gastroc stretch on wedge 20 x4 Parameters hamstring stretch in cage 20 x 2 LLE (experienced burning in L glute) HOLD Manual Therapy ([id number]) Intervention STM using the stick to posterior knee, HS, gastroc 5 min LLE Additional Exercises Add more exercises? Yes PT Treatment Times Therex Total Time 50 Manual Therapy Total Time 5 Direct Treatment Time 55 Total Treatment Time 56 Goals: Physical Therapy Ortho Goals: 1. The patient will safely, correctly and independently demonstrate the ability to perform a progressive HEP to achieve maximal rehabilitation potential and prevent this condition from recurring. 2. Able to tolerate sitting for 2+ hours continuously; able to manipulate/move up to 40# rarely in floor to waist range. 3. Able to perform 1+min holds in multiple core stability activitities. 4. Resumption of full PLOF ADL at home and in recreational activities. 5 Decrease pain from 3/10 with activity to 2/10 or less with full duty activity at home and work 6. Patient to be independent with pain management methods including specific localized self application of thermal and/or cryo agents, stretching/self- mobilization, self-taping/supportive devices, localized tissue manipulation/pressure, self massage, and OTC topical analgesics; and awareness of products which may be available to assist in these strategies. 7. Patient to effectively apply relevant principles of regional body biomechanics and task related ergonomics. 8. Patient to verbalize adequate understanding of rehabilitation process; also ability to recognizesigns and sx of too much or dysfunctional exercise, activity, or posture. 9. Patient will increase FOTO score from 31 to at least 53 to show MDC/MCII and expected functionaloutcome in 6 weeks Patient Education: Verbal HEP and Diagnosis and recovery specific education with patient verbalizedunderstanding. Post-Treatment Pain Scale: 3 Assessment: Patient had an expected response to treatment. Posterior/lateral portion of knee is the most painful, pain does not dissipate to her ankle like itused to. Pt is most tender to lateral gastroc during STM, unable to tolerate anything more than moderate pressure. Unsure what root cause is of pt's sxs: could be originating from lumbar, could also have an injury at the knee, pt reports she has had surgery on her L foot before so patient could have been compensating from pain from foot. Skilled Intervention demonstrated by modifications of treatment per exercise log including assessment of patient's response and safety interventions per exercise log. Progress towards goals unexpected due to higher than anticipated complexity. Plan for Next Visit: Continue. Print off gastroc stretch for HEP, printer was not working when pt was in clinic. Swati Aguero PTA STATE LICENSE, [id number] documented in this encounter* Kianna Daley MD - 08/11/2019 2:48 PM EST Vilma Carrera is a 63 y.o. female Assessment/Plan: Problem List Items Addressed This Visit Endocrine Hypothyroidism - chronic, controlled with current dose. Asymptomatic. Can continue 88 mcg of synthroid. I suggest checking levels yearly. Relevant Orders TSH with Reflex Free T4 Cardiovascular and Mediastinum Essential hypertension - Primary - Pt likely has HTN. Using a wrist cuff and having lower BP readings however did not bring the cuffin today. She is wanting to continue lisinopril 5 mg only as needed. I did discuss risk of elevatedBP levels with her and proper use of lisinopril. She will bring her cuff in next visit. Return in about 3 months (around 11/11/2019) for Annual physical. Vilma Carrera is a 63 y.o. female who presents for Chief Complaint Patient presents with Hypertension Thyroid Problem Cough HPI HTN: Home monitoring: SBP 121-158, DBP 71-85. Only once it was 158/85. Uses a wrist Medications and adherence: Not on any medications. Stopped the lisinopril Side effects to medication: Feels like she was gonna pass out Diets/weight loss: none Pertinent negatives include no chest pain, SOB, visual changes, palpitations or dysuria. Thyroid dz: has had underactive thyroid when she was in her 30's. Had heavy menstrual cycles at that time. Improved after starting medication. Diagnosed with dorie's. Was on a higher dose and recently down to 88 mcg. Patient Active Problem List Diagnosis Calcific tendinitis of left shoulder region Essential hypertension Diaphoresis Seasonal allergic rhinitis Asthma Tinnitus of both ears Bilateral impacted cerumen Itching of ear Hypothyroidism Past Surgical History: Procedure Laterality Date LAMINECTOMY 1997 Family History Problem Relation Age of Onset Clotting disorder Mother Esophageal cancer Father Nephrolithiasis Sister Heart attack Other Allergies Other Hypothyroidism Other Diabetes Other Social History Tobacco Use Smoking status: Never Smoker Smokeless tobacco: Never Used Substance Use Topics Alcohol use: Yes Alcohol/week: 1.0 standard drinks Types: 1 Standard drinks or equivalent per week Comment: nightly Drug use: No Tobacco Counseling: Counseling given: No Current Outpatient Medications Medication Sig Dispense Refill acetaminophen (TYLENOL) 325 MG tablet Take 650 mg by mouth every 6 (six) hours as needed for pain. albuterol 90 mcg/actuation inhaler Inhale 2 (two) puffs every 6 (six) hours as needed for wheezing . 1 Inhaler 0 CINNAMON BARK ORAL Take 1 capsule by mouth daily. coenzyme Q10 (CO Q-10) 100 mg capsule Take 100 mg by mouth daily. lisinopril (PRINIVIL,ZESTRIL) 10 MG tablet Take by mouth daily . montelukast (SINGULAIR) 10 mg tablet Take 1 (one) tablet (10 mg total) by mouth nightly . 30 tablet3 s-adenosylmethionine (MARISOL-E, ENTERIC COATED,) 200 mg TbEC Take 1 tablet by mouth 2 (two) times a day. SYNTHROID 88 mcg tablet Take 1 (one) tablet (88 mcg total) by mouth daily . 90 tablet 3 No current facility-administered medications for this visit. Review of Systems Constitutional: Negative for appetite change, chills, diaphoresis, fatigue and fever. Eyes: Negative for visual disturbance. Respiratory: Positive for cough (chronic off and on). Negative for shortness of breath. Cardiovascular: Negative for chest pain, palpitations and leg swelling. Gastrointestinal: Negative for abdominal pain, nausea and vomiting. Genitourinary: Negative for dysuria. Skin: Negative for rash and wound. Neurological: Negative for dizziness, weakness, light-headedness, numbness and headaches. Psychiatric/Behavioral: Negative for confusion and sleep disturbance. Physical Exam: BP (!) 169/96 (BP Location: Right arm, Patient Position: Sitting, BP Cuff Size: X-large Adult) Temp 98.7 F (37.1 C) (Temporal) Resp 18 Ht 5' 4 Wt 80.5 kg (177 lb 8 oz) BMI 30.47 kg/m Wt Readings from Last 3 Encounters: 08/11/19 80.5 kg (177 lb 8 oz) 07/20/19 80.6 kg (177 lb 12.8 oz) 06/24/19 78.1 kg (172 lb 3.2 oz) BP Readings from Last 3 Encounters: 08/11/19 (!) 169/96 07/20/19 (!) 191/94 06/24/19 144/86 Physical Exam Vitals signs reviewed. Constitutional: General: She is not in acute distress. Appearance: She is well-developed. She is not diaphoretic. Eyes: Conjunctiva/sclera: Conjunctivae normal. Neck: Musculoskeletal: Normal range of motion. Thyroid: No thyromegaly. Cardiovascular: Rate and Rhythm: Normal rate and regular rhythm. Heart sounds: Normal heart sounds. No murmur. Pulmonary: Effort: Pulmonary effort is normal. No respiratory distress. Breath sounds: Normal breath sounds. Lymphadenopathy: Cervical: No cervical adenopathy. Skin: Capillary Refill: Capillary refill takes less than 2 seconds. Neurological: Mental Status: She is alert. Health Maintenance Due Topic Date Due HEPATITIS C SCREENING 1955 Falls Risk Assessment 1955 DEPRESSION SCREENING (PHQ9) 1955 TETANUS EVERY 10 YR 1955 Colorectal Cancer Screening: Colonoscopy 1955 Mammogram 1955 Dexa Scan 1955 Wellness Visit 1956 Zoster Vaccines (1 of 2) 2003 PNEUMOCOCCAL VACCINE AGE 65+ (1 of 2 - PCV13) 2018 SEQUENTIAL INFLUENZA VACCINE (1) 06/06/2019 For any new medications prescribed today, patient was educated about indications for the medication, how to take the medication and potential side effects of the medications. documented in this encounter* Mariana Silva, Johan - 07/20/2019 2:50 PM EDT [facility] [address] [place] [address] Name: Vilma Carrera : 1955 Date: 07/20/19 History & Purpose of Evaluation: Vilma Carrera was seen today for audiologic evaluation at the kind request of Dr. Hung. Ms. Carrera presents today with a c/o bilateral itchy ears, muffled hearing at the right ear, tinnitus at the right ear, a fullness sensation at the right ear that feels as if she is under water , and an off balance sensation when she bends over. Ms Carrera has a history of allergies. Ms. Carrera reports the tinnitus at the right ear is usually intermittent, but for the past couple of days has been constant.She also reports the fullness at the right ear is worse in the mornings when she wakes up. Please see below for other pertinent case history. Otologic Symptoms R L Noise Exposure Y N Medical Y N Hearing Loss [x] [] Occupational [] [x] Hypertension [] [x] Tinnitus [x] [] Recreational [x] [] Diabetes [] [x] Otalgia [] [] [] [x] Hypercholesterolemia [] [x] Otorrhea [] [] Heart Disease [] [x] Aural Fullness [x] [] Family History [] [x] Stroke [] [x] Meniere s Disease [] [] Cancer [] [x] Y N /Sathya. Skills Ear Surgery R L Vertigo [] [x] Appropriate [x] [] PE Tubes [] [] Dizziness [] [x] In Therapy [] [x] Mastoidectomy [] [] Imbalance [x] [] Social Acoustic Neuroma [] [] Vestibular Rehab [] [x] Depression [] [x] Tympanoplasty [] [] Other: Results: [employer] Conduction Audiometry: Normal hearing sensitivity at all frequencies tested, bilaterally. Speech Audiometry: Word recognition is excellent at both ears when assessed at a normal conversational loudness level. Immittance Audiometry: Normal middle ear pressure and tympanic membrane mobility, bilaterally. Jerger Type A. Distortion Product Otoacoustic Emissions (DPOAE; 1500-6k Hz): Could not assess. Impression: Today's results reveal normal hearing and middle ear function, bilaterally. Ms. Carrera's hearing should be adequate for normal conversation. Recommendations: Follow up with Dr. Hung. Use sweet oil or olive oil gently with a Q-tip in the outer ear canals to relieve symptoms of itchiness. Use of a masker such as television or radio to reduce symptoms of tinnitus. The above was explained to the patient and or their guardian and they expressed understanding. Electronically signed by: Katelynn Griffith, [facility] 07/20/19 2:50 PM documented in this encounter* Sunshine Ku, ELECTRICAL PROSPECTING ENGINEER - 08/28/2019 9:21 AM EST Patient call into on-call Service @[phone] with concerns for a worsening cough productive of nature. Sputum described as Green. Patient does have medical history of asthma and allergies. She did use her inhaler with no relief. Denies fever or chills, worsening shortness of breath, chest discomfort. Edit: Tessalon pearls and prednisone prescribed to help the symptoms that are likely a viral illness. Patient to go into the office [facility] if symptoms have not improved. documented in this encounter* Cecil Marrero, DIVINITY TEACHER - 10/18/2020 1:00 PM EST [facility] OUTPATIENT REHABILITATION DAILY TREATMENT NOTE Today's Date 10/18/2020 Patient Name: Vilma Carrera Date of : 1955 Current Visit #: 7 Authorized Visits: 199 Case Name: L knee (and hip) History: Pre-Treatment Pain Scale: 3 Symptoms: stabilized Functional Diagnosis: 1. Acute left ankle pain 2. Acute pain of left knee Clinical Information: Subjective: Pt states does has back pain occasionally. Pt states L knee pain is 2-3/10 today. Pt states knee feels weak and heavy at times. Pt states compression brace has helped decrease swelling and pain in L knee. Objective: Started with stretching to decrease tightness. Pt cont with nustep for LE strengthening for improvement of functional mobility. Introduced to knee strengthening exercises per flow sheet. Treatments: Physical Therapy Exercise Log - 10/18/20 1259 OTHER Notes Donal-PT Vitals 1;00-1:45 Therapeutic Exercise ([id number]) Intervention NuStep L4 7' with UE use Parameters calf stretch 20 x5 B Intervention quad sets 5 hold x20 Parameters LAQ 3 hold 2x10 Intervention SLR flexion 2x10 Parameters SKTC 10 x5 B (core focus) Intervention side leg raise 2x10 B (core focus and correct form) Parameters shuttle squats 37# 2x10 Intervention gastroc stretch on wedge 20 x5 Parameters hamstring stretch in cage 20 x 2 LLE (experienced burning in L glute) HOLD Manual Therapy (68546) Intervention -- Additional Exercises Add more exercises? Yes PT Treatment Times Therex Total Time 45 Direct Treatment Time 45 Total Treatment Time 45 Goals: Physical Therapy Ortho Goals: 1. The patient will safely, correctly and independently demonstrate the ability to perform a progressive HEP to achieve maximal rehabilitation potential and prevent this condition from recurring. 2. Able to tolerate sitting for 2+ hours continuously; able to manipulate/move up to 40# rarely in floor to waist range. 3. Able to perform 1+min holds in multiple core stability activitities. 4. Resumption of full PLOF ADL at home and in recreational activities. 5 Decrease pain from 3/10 with activity to 2/10 or less with full duty activity at home and work 6. Patient to be independent with pain management methods including specific localized self application of thermal and/or cryo agents, stretching/self- mobilization, self-taping/supportive devices, localized tissue manipulation/pressure, self massage, and OTC topical analgesics; and awareness of products which may be available to assist in these strategies. 7. Patient to effectively apply relevant principles of regional body biomechanics and task related ergonomics. 8. Patient to verbalize adequate understanding of rehabilitation process; also ability to recognizesigns and sx of too much or dysfunctional exercise, activity, or posture. 9. Patient will increase FOTO score from 31 to at least 53 to show MDC/MCII and expected functionaloutcome in 6 weeks Patient Education: Quality of movement with patient demonstrated understanding. Post-Treatment Pain Scale: 3 Assessment: Patient had an expected response to treatment. Verbal and visual cueing for proper performance of each exercise. Pt had good tolerance to progressed exercises. Pt had muscle fatigue with quad strengthening exercise with visual quad tremors secondary to weakness. Pt had no increase in pain post session. Skilled Intervention demonstrated by modifications of treatment per exercise log including increased load and safety interventions per exercise log. Progress towards goals as expected. Plan for Next Visit: Treatment Visit with focus on Cont with knee strengthening exercises Cecil Marrero PTA STATE LICENSE, [id number] documented in this encounter* SpringTayler, [facility] - 01/11/2021 1:52 PM EDT Subjective Patient ID: Vilma Carrera is a 65 y.o. female. Patient is here today to establish care, she is new to this provider and new to this practice. She was previously established with Dr. Quintanilla and Dr. Daley but transferred to this office because it is closer to her home. Patient is very active, she still watches her grandchildren, she just watched 6 kids for 5 days in a row 3-13 years old. HTN: Patient checks her blood pressure at home sporadically and it is typically 130-140's/70's. Noted it is elevated at today's visit. She states she has cut out Ibuprofen and coffee. She denies any chest pain, SOB, palpitations, edema to legs/ankles, headaches, or nosebleeds. Asthma: Patient was diagnosed with asthma as a child. She is currently on Singulair 10 mg daily andAlbuterol as needed, she has not needed a daily inhaler. She states this is the worst time of year for her and she will need her inhaler more, she states she typically only uses it once every few weeks. Hypothyroid: Patient was diagnosed with low thyroid issues at age [age] years old. She has to take name brand Synthroid for full efficacy. Current symptoms: none . Patient denies change in energy level, diarrhea, heat / cold intolerance, nervousness, palpitations and weight changes. Symptoms have been well-controlled. Urinary Frequency This is a new problem. The current episode started yesterday. The problem occurs every urination. The problem has been gradually worsening. The quality of the pain is described as burning. The pain is mild. There has been no fever. She is not sexually active. There is a history of pyelonephritis. Associated symptoms include frequency and urgency. Pertinent negatives include no chills, discharge, flank pain, hematuria, hesitancy, nausea, possible , sweats or vomiting. She has tried acetaminophen and increased fluids for the symptoms. The treatment provided mild relief. Her past medical history is significant for kidney stones. There is no history of catheterization, recurrent UTIs, a single kidney, urinary stasis or a urological procedure. The following were reviewed and updated as appropriate for today's visit: allergies, current medications, past family history, past medical history, past social history, past surgical history and problem list. Patient's Medications New Prescriptions PHENAZOPYRIDINE (PYRIDIUM) 100 MG TABLET Take 1 (one) tablet (100 mg total) by mouth 3 (three) times a day . SULFAMETHOXAZOLE-TRIMETHOPRIM (BACTRIM,SEPTRA) 400-80 MG PER TABLET Take 1 (one) tablet by mouth 2 (two) times a day . TRIAMCINOLONE (KENALOG) 0.1 % CREAM Apply topically 2 (two) times a day as needed . Previous Medications ACETAMINOPHEN (TYLENOL) 325 MG TABLET Take 650 mg by mouth every 6 (six) hours as needed for pain. ALBUTEROL 90 MCG/ACTUATION INHALER Inhale 2 (two) puffs every 6 (six) hours as needed for wheezing . CHOLECALCIFEROL, VITAMIN D3, (VITAMIN D3 ORAL) Take 1,000 mg by mouth daily . COENZYME Q10 (CO Q-10) 100 MG CAPSULE Take 100 mg by mouth daily. ADTE-XJSMF-DXP-D3-HYAL-CATE BOR ORAL Take by mouth daily . MAGNESIUM 250 MG TAB Take by mouth . MONTELUKAST (SINGULAIR) 10 MG TABLET TAKE 1 TABLET BY MOUTH EVERY EVENING S-ADENOSYLMETHIONINE (MARISOL-E, ENTERIC COATED,) 200 MG TBEC Take 1 tablet by mouth 2 (two) times a day. SYNTHROID 88 MCG TABLET Take 1 (one) tablet (88 mcg total) by mouth daily AND 2 (two) tablets (176 mcg total) weekly at bedtime. Modified Medications No medications on file Discontinued Medications BYSTOLIC 5 MG TABLET Take 5 mg by mouth daily . PREDNISONE (DELTASONE) 10 MG TABLET 4 tablets daily x 3 days, 3 tablets daily x 3 days, 2 tablets daily x 3 days, 1 tablet daily x 3 days . Review of Systems Review of Systems Constitutional: Negative for activity change, appetite change, chills and fatigue. HENT: Negative for hearing loss. Eyes: Negative for visual disturbance. Respiratory: Negative for cough, chest tightness, shortness of breath and wheezing. Cardiovascular: Negative for chest pain, palpitations and leg swelling. Gastrointestinal: Negative for nausea and vomiting. Genitourinary: Positive for frequency and urgency. Negative for flank pain, hematuria and hesitancy. Skin: Negative. Neurological: Negative for dizziness, weakness, light-headedness, numbness and headaches. Hematological: Does not bruise/bleed easily. Psychiatric/Behavioral: Negative for dysphoric mood. The patient is not nervous/anxious. Vitals: 01/11/21 1331 01/11/21 1338 01/11/21 1441 BP: (!) 185/93 (!) 170/90 (!) 172/94 BP Location: Right arm Right arm Left arm Patient Position: Sitting Sitting Sitting BP Cuff Size: Adult Adult Adult Pulse: 75 73 Resp: 16 Temp: 97.6 F (36.4 C) TempSrc: Temporal SpO2: 97% Weight: 76.5 kg (168 lb 9.6 oz) Height: 5' 4 Body mass index is 28.94 kg/m . Physical Exam Physical Exam Constitutional: She is oriented to person, place, and time. She appears well- developed and well-nourished. HENT: Right Ear: External ear normal. Left Ear: External ear normal. Nose: Nose normal. Mouth/Throat: Oropharynx is clear and moist and mucous membranes are normal. Eyes: Conjunctivae, EOM and lids are normal. Neck: Normal range of motion. Cardiovascular: Normal rate, regular rhythm and normal heart sounds. No murmur heard. Pulmonary/Chest: Effort normal and breath sounds normal. Musculoskeletal: Comments: Normal gait Neurological: She is alert and oriented to person, place, and time. GCS eye subscore is 4. GCS verbal subscore is 5. GCS motor subscore is 6. Skin: Skin is warm and dry. Psychiatric: She has a normal mood and affect. Her speech is normal and behavior is normal. OARRS/NARxCHECK Report Received and Assessed: 04/09/2018 Date controlled substance agreement signed: No data found Date of last drug screen: No data found Functional Assessment: No data found Assessment/Plan Problem List Items Addressed This Visit Endocrine Hypothyroidism Relevant Orders TSH with Reflex Free T4 Lipid Panel Respiratory Seasonal allergic rhinitis Relevant Medications triamcinolone (KENALOG) 0.1 % cream Cardiovascular and Mediastinum Essential hypertension Your blood pressure is elevated at today's visit. I want you to take your BP at home and let me know if it is consistently above 150/90. Please monitor your blood pressure at home and keep a log. I want you to write down the time, your blood pressure, and your heart rate readings. Please bring your log and blood pressure cuff to all of your visits. Check your blood pressure 3-4 times a week at different random times. Make sure you are sitting in a chair, back flat against chair back, feet flat on the floor, legs uncrossed, arm at the level of your heart. Relevant Orders Comprehensive Metabolic Panel CBC and Differential Other Visit Diagnoses Frequency of urination - Primary Relevant Medications sulfamethoxazole-trimethoprim (BACTRIM,SEPTRA) 400-80 mg per tablet Other Relevant Orders POC Urinalysis Dipstick (Completed) Urine Aerobic Culture Elevated blood sugar Relevant Orders Hemoglobin A1c Hyperlipidemia LDL goal <100 Relevant Orders TSH with Reflex Free T4 Lipid Panel Comprehensive Metabolic Panel For any new medications prescribed today, patient was educated about indications for the medication, how to take the medication and potential side effects of the medications. Tayler Lazaro CNP documented in this encounter Assessments Diagnosis Seasonal allergic rhinitis, unspecified trigger- Primary Essential hypertension Unspecified essential hypertension Asthma, unspecified asthma severity, unspecified whether complicated, unspecified whether persistent Cholesteatoma of both ears Diagnosis Bilateral impacted cerumen- Primary Impacted cerumen Tinnitus of both ears Unspecified tinnitus Itching of ear Diagnosis Essential hypertension Unspecified essential hypertension Acute nonintractable headache, unspecified headache type Diagnosis Well female exam with routine gynecological exam Routine gynecological examination Encounter for screening for cardiovascular disorders Hypothyroidism, unspecified type Pelvic pain Postmenopausal Asymptomatic postmenopausal status (age-related) (natural) Dysuria Essential hypertension Unspecified essential hypertension Diagnosis Pelvic pain Diagnosis Postmenopausal Asymptomatic postmenopausal status (age-related) (natural) Diagnosis Acute left ankle pain- Primary Acute pain of left knee Asthma, unspecified asthma severity, unspecified whether complicated, unspecified whether persistent Diagnosis Acute left ankle pain Diagnosis Acute pain of left knee Diagnosis Acute left ankle pain Acute pain of left knee Diagnosis Acute left ankle pain Acute pain of left knee Diagnosis Essential hypertension- Primary Unspecified essential hypertension Hypothyroidism, unspecified type Diagnosis Bilateral impacted cerumen- Primary Impacted cerumen Tinnitus of right ear Itching of ear Diagnosis Frequency of urination- Primary Urinary frequency Hypothyroidism, unspecified type Essential hypertension Unspecified essential hypertension Elevated blood sugar Other abnormal glucose Hyperlipidemia LDL goal <100 Other and unspecified hyperlipidemia Seasonal allergic rhinitis, unspecified trigger Additional Source Comments INFORMATION SOURCE (unrecogn ized section and content) DATE CREATED AUTHOR AUTHOR'S ORGANIZ ATION 06/04/2022 [facility] DATE CREATED AUTHOR AUTHOR'S ORGANIZ ATION 10/23/2022 [facility] DATE CREATED AUTHOR AUTHOR'S ORGANIZ ATION 03/18/2023 [facility] Reason for Visit (unrecogniz ed section and content) 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 TM perforation on 06/11/2019, rx'd prednisone and oral ATB. She states her ears itching. She states it happens every fall. Per patient, she states PCP said she has fluid on the right ear and they are red. Duration: Location: b/l Severity: low, Associated symptoms: Tinnitus. Decrease in hearing, muffled on right. No recent audiograms. Status Reason Specialty Diagnoses / Procedures Referred By Contact Referred To Contact Closed Specialty Services Required/Patie nt's Best Interest Otolaryngology (ENT) / Otolaryngology Diagnoses Cholesteatoma of both ears Kianna Daley MD [facility] [place] [id number] Tao Hung, DO [address] [place], [place] [id number] Reason Comments Migraine Hypertension Reason Comments Gynecologic Exam Status Reason Specialty Diagnoses / Procedures Referred By Contact Referred To Contact Closed Specialty Services Required/Patient' s Best Interest Radiology Diagnoses Postmenopausal Procedures XR Bone Density DEXA Axial Kianna Daley MD [facility] [place] [id number] Reason Comments Knee Pain Left knee. Is seeing chiro. Foot Pain Left foot. Status Reason Specialty Diagnoses / Procedures Referred By Contact Referred To Contact Pending Review Rehabilitation Diagnoses Acute left ankle pain Acute pain of left knee Kianna Daley MD [address] [place] [id number] [facility] [address] [place] [phone] Reason Comments Physical Therapy Status Reason Specialty Diagnoses / Procedures Referred By Contact Referred To Contact Authorized Rehabilitation Diagnoses Acute left ankle pain Acute pain of left knee Kianna Daley MD [address] [place] [address] [id number] [facility] [place] [address] [place] [phone] Status Reason Specialty Diagnoses / Procedures Referred By Contact Referred To Contact Authorized Rehabilitation Diagnoses Acute left ankle pain Acute pain of left knee Kianna Daley MD [address] [place] [id number] [facility] [place] [address] [place] [phone] Reason Comments Hypertension Thyroid Problem Cough Status Reason Specialty Diagnoses / Procedures Referred By Contact Referred To Contact Closed Specialty Services Required/Patient' s Best Interest Audiology Diagnoses Tinnitus of both ears Tao Hung, DO [address] [place] [address] Mariana Silva, Johan Reason Comments Establish Care Urinary frequency Reason Comments Hypertension Reason Comments Follow-up 2 WEEK FU HTN Reason Onset Date Comments Medication Refill 07/04/2021 Reason Onset Date Comments Medication Refill 07/09/2021 Reason Onset Date Comments Care Coordination-P 08/07/2021 Reason Onset Date Comments Care Coordination-P 08/14/2021 Reason Onset Date Comments Care Coordination-P 09/13/2021 Reason Comments Follow-up Htn,allergies, asthm a, hld. Concerns with memory thinks it has to due with her bp meds Reason Onset Date Comments Medication Refill 09/27/2021 Reason Comments Allergic Reaction Assessment & Plan Note - Kianna Daley MD - 06/24/2019 5:19 PM EDTAssessment & Plan Note - Kianna Daley MD - 06/24/2019 5:18 PM EDT Miscellaneous Notes (unrecog nized section and content) Associated Problem(s): Asthma -This is a chronic problem that seems to be exacerbated by allergies. We discussed that we can start her on the Singulair again as as this has been helpful in the past. He also discussed utilizing her inhaler as needed when she is having coughing and wheezing. She is hesitant but will use this when needed. States that it can make her little jittery. Associated Problem(s): Essential hypertension - chronic, her BP is at goal today < 150/90 due to her ago. We discussed taking only 5 mg of the lisinopril and checking her pressure if she gets dizzy. She will follow up. Would like a renal function checked in one month. Associated Problem(s): Seasonal allergic rhinitis - chronic, continue the daily Zyrtec. Adding singular because she has had good results on this when she was on it in the past. She also has a h/o childhood asthma. She is not a smoker. Her ear exam is concerning and I think its best to have her f/u with ENT. documented in this encounter Associated Problem(s): Headache - May be due to a migraine vs untreated high blood pressure. No headache today and no neurological deficits. Will keep a headache diary. Will have her follow up in a few weeks to review. Discuss precautions on when to seek medical attention. Continue tylenol for headaches. Associated Problem(s): Essential hypertension - Chronic, has been uncontrolled. She has always been hesitant to start medication. She has many adverse reactions to several medications. She has tried metoprolol per chart review. She has also tried losartan and Lisinopril. Would avoid HCTZ as she is already having increase urination. She states that Bystolic has been successful in the past and we will restart this. documented in this encounter Associated Problem(s): Well female exam with routine gynecological exam Well woman exam -Counseled on healthy diet. -Counseled on importance of exercise - 150mins/ week of moderate activity as tolerated -Immunizations reviewed. -Counseled on importance of regular tooth brushing, flossing, and dental visits -Lab screening for hyperlipidemia, A1C for diabetes ordered -Discussed pap recommendations/follow up-completed today and if normal no longer needs to get in. -Discussed breast cancer screening-obtain mammogram -Discussed colon cancer screening-obtain previous colonoscopy results. Associated Problem(s): Essential hypertension -Chronic, per patient history blood pressures are normal at home however in the office her blood pressures have been elevated several times. She was on Bystolic but decided to stop this due to side effects. She is currently on lisinopril. Encouraged her to continue her medication. Encouraged her to bring her logs next time. She appears well today in no acute distress. Associated Problem(s): Hypothyroidism Chronic, uncontrolled. Repeat TSH and T4 continue Synthroid. documented in this encounter Associated Problem(s): Acute left ankle pain History and exam suggest that this is likely a sprain. You are osteopenic and may have increase fracture risk. I think it is reasonable to obtain an Xray. I encourage you to wrap the ankle and ICE it 2-3 times per day. We are demonstrated today how to wrap. Remember to rest and elevate. Associated Problem(s): Knee pain Knee is stable with no instability noted on exam today. With h/o trauma, I do recommend imaging. I have ordered that today. No signs of infection. trial of prednisone since you are unable to tolerate NSAIDS Associated Problem(s): Asthma Chronic, currently controlled. Continue your albuterol documented in this encounter Associated Problem(s): Hypothyroidism - chronic, controlled with current dose. Asymptomatic. Can continue 88 mcg of synthroid. I suggest checking levels yearly. Associated Problem(s): Essential hypertension - Pt likely has HTN. Using a wrist cuff and having lower BP readings however did not bring the cuff in today. She is wanting to continue lisinopril 5 mg only as needed. I did discuss risk of elevated BP levels with her and proper use of lisinopril. She will bring her cuff in next visit. documented in this encounter Associated Problem(s): Essential hypertension Your blood pressure is elevated at today's visit. I want you to take your BP at home and let me know if it is consistently above 150/90. Please monitor your blood pressure at home and keep a log. I want you to write down the time, your blood pressure, and your heart rate readings. Please bring your log and blood pressure cuff to all of your visits. Check your blood pressure 3-4 times a week at different random times. Make sure you are sitting in a chair, back flat against chair back, feet flat on the floor, legs uncrossed, arm at the level of your heart. documented in this encounter Care Teams (unrecognized sec tion and content) Extension Work Instructor Relationship Specialty Start Date End Date SpringTayler CNP [address] [address] PCP - General Nurse Practitioner 01/11/21 Extension Work Instructor Relationship Specialty Start Date End Date SpringTayler CNP [address] [address] PCP - General Nurse Practitioner 01/11/21 Extension Work Instructor Relationship Specialty Start Date End Date SpringTayler CNP [address] [address] PCP - General Nurse Practitioner 01/11/21 <item><item> Privacy Markings (unrecogniz ed section and content) Section Author: Laura Carter PROHIBITION ON REDISCLOSURE OF CONFIDENTIAL INFORMATION This notice accompanies a disclosure of information concerning a client made to you with the consent of such client. Section Author: Laura Carter PROHIBITION ON REDISCLOSURE OF CONFIDENTIAL INFORMATION This notice accompanies a disclosure of information concerning a client made to you with the consent of such client. FOR RECORDS PERTAINING TO PATIENTS WHO ARE OR HAVE BEEN ENROLLED IN A CHEMICAL DEPENDENCY/SUBSTANCEABUSE PROGRAM, SOME INFORMATION MAY BE OMITTED. This clinical summary was aggregated from multiple sources. Caution should be exercised in using it in the provision of clinical care. This summary normalizes information from multiple sources, and as a consequence, information in this document may materially change the coding, format and clinical context of patient data. In addition, data may be omitted in some cases. CLINICAL DECISIONS SHOULD BE BASED ON THE PRIMARY CLINICAL RECORDS. [employer]. provides no warranty or guarantee of the accuracy or completeness of information in this document.
== END | disposition home or self-care (01) ==
LOC: LAB 09:58
PROVIDERS: PCP Internal Medicine; Referring Provider Internal Medicine; Visit Provider Internal Medicine
DX: E78.5 Hyperlipidemia, unspecified (principal); E11.9 Type 2 diabetes mellitus without complications; E03.9 Hypothyroidism, unspecified
CPT/HCPCS: 36415; 80053; 80061; 82043; 82570; 84443; 85025

== ENCOUNTER → 2024-06-10 | Outpatient (CLI) | payer MEDICARE, SELFPAY ==
--- NOTE | 2024-06-10 15:23 | BD_ITS ---
STUDY: DUAL ENERGY X-RAY ABSORPTIOMETRY / DXA REASON FOR EXAM: Female, 68 years old. 627.8Menopausal postmenopausalBONE DENSITY REASON FOR EXAM -- Postmenopausal status TECHNIQUE: Bone Mineral Density (BMD) measurements of right forearm and bilateral hips were obtained. COMPARISON: None. FINDINGS: Left Femur Total: g/cm2 (0.638) / T-score (-2.5) / Z-score (-1.0) Left Femoral Neck: g/cm2 (0.587) / T-score (-2.4) / Z-score (-0.5) Right Femur Total: g/cm2 (0.721) / T-score (-1.8) / Z-score (-0.3) Right Femoral Neck: g/cm2 (0.615) / T-score (-2.1) / Z-score (-0.3) Right Forearm: g/cm2 (0.466) / T-score (-2.1) / Z-score (0.0) BD/Dexa Bone Density Study IMPRESSION: The patient is considered osteoporotic as outlined below according to World Judd Organization (WHO) criteria with a high fracture risk. Reference Information: The T-score is the number of standard deviations above or below the standard which is normal for young adults at their peak bone mineral density. The World Health Organization (WHO) interprets the T-scores as follows: Above -1 Normal bone density Between -1 and -2.5 Osteopenia Equal to / or below -2.5 Osteoporosis As a practical clinical guideline, osteopenia may be graded as follows: Mild -1 through -1.5 Moderate -1.6 through -2.0 Severe -2.1 through -2.4 The Z-score is the number of standard deviations above or below age-matched controls. A Z-score of less than -1.5 would be considered abnormal. References: 1. NIH Osteoporosis and Related Bone Diseases www osteo.org 2. International Society for Clinical Densitometry www iscd.org 3. National Osteoporosis Foundation www nof.org Electronically Signed: Gorge Edward MD at 13:10 EDT ,
--- NOTE | 2024-06-10 15:23 | BI_ITS ---
MAMMOGRAPHY - BILATERAL SCREENING REASON FOR EXAM: Female, 68 years old. Routine annual screening examination. PERTINENT HISTORY: Non-contributory. TECHNIQUE: Digital bilateral breast joanna (3D mammographic acquisition) in the CC and MLO projections. 2-D mediolateral oblique (MLO) and craniocaudad (CC) views of both breasts were obtained. CAD: Full Field Digital Mammography with Computer Added Detection was performed. COMPARISON: Comparison is made with prior study dated December 30, 2014. FINDINGS: Breast Composition: There are scattered areas of fibroglandular density. There are no dominant masses or suspicious calcifications. No other significant abnormalities are identified. There has been no significant change since the prior study. BI/SCRN MAMM (CAD)W/JOANNA BILAT IMPRESSION: Stable bilateral screening mammogram. Yearly follow-up mammogram recommended. (A) ASSESSMENT CATEGORY: BIRADS Category 1: Negative. A letter regarding these results will be sent to the patient by the facility within 30 days. Approximately 10% of breast cancers are not detected by mammography. A normal mammogram should not delay biopsy of a clinically suspicious abnormality. [id number] Electronically Signed: Gorge Edward MD at 8:16 EDT ,
== END | disposition home or self-care (01) ==
LOC: OPBD 15:20
PROVIDERS: PCP Internal Medicine; Referring Provider Internal Medicine; Visit Provider Internal Medicine
DX: Z13.820 Encounter for screening for osteoporosis (principal); Z78.0 Asymptomatic menopausal state; Z12.31 Encounter for screening mammogram for malignant neoplasm of breast
CPT/HCPCS: 77063; 77067; 77080

== ENCOUNTER → 2024-06-11 | Outpatient (CLI) | payer MEDICARE, SELFPAY ==
[2024-06-11 11:35] LABS: Absolute Neutrophil Count 5.1 X10^3/uL (2.0-7.7); Basophil# 0.04 X10^3/uL; Basophil% 0.5 % (0-1); Eosinophil# 0.11 X10^3/uL; Eosinophils% 1.4 % (0-5); Hematocrit 42.5 % (37-47); Hemoglobin 13.8 g/dL (12.0-15.0); Lymphocyte % 24.1 % (19-41); Mean Corp Hgb Conc 32.5 g/dL (32-36); Mean Corpuscular Hgb 31.4 pg (27.0-32.0); Mean Corpuscular Volume 96.8 fL (81-99); Mean Platelet Vol. 10.1 fl (6.2-12.0); Monocyte# 0.64 X10^3/uL; Monocyte% 8.1 % (0-10); NRBC Flagged by Analyzer 0 % (0-5); Neutrophil # 5.13 X10^3/uL (2.7-7.7); Neutrophil % 65.3 % (47-70); Platelet Count 416 K/mm3 (150-450); RBC Distribution Width SD 42.7 fl (35.1-43.9); Red Blood Count 4.39 M/mm3 (4.2-5.4); White Blood Count 7.9 K/mm3 (4.4-11.0)
[2024-06-11 11:47] LABS: Color, Urine Yellow (Yellow); Glucose, Dipstick Normal (Normal); Ketone-Dipstick Negative (Negative); Leukocyte Esterase-Dipstick 25 /ul (Negative); Nitrite-Dipstick Negative (Negative); Occult Blood-Urine Negative /ul (Negative); Protein-Dipstick Negative (Negative); Specific Gravity, Urine 1.015 (1.002-1.030); Urine Bilirubin Dipstick Negative (Negative); Urine Clarity Clear (Clear); Urine Urobilinogen Normal (Normal); Urine pH 6.5 (5.0 - 8.0)
[2024-06-11 12:10] LABS: ALB/GLOB Ratio 1.1 RATIO (0.9-2.4); AST(SGOT) 16 U/L (15-37); Alanine Aminotransfer ALT/SGPT 22 U/L (13-56); Albumin, Serum 3.8 g/dL (3.2-5.0); Alkaline Phosphatase 95 U/L (45-117); Anion Gap 4 (5-15); BUN 14 mg/dL (7-18); BUN/Creat Ratio 22.2 RATIO (10-20); Calcium,Total 9.6 mg/dL (8.5-10.1); Chloride 105 mmol/L (98-107); Cholesterol 188 mg/dL (200); Creatinine, Serum 0.63 mg/dL (0.55-1.02); EST Glomerular Filtration Rate 99 mL/min (>60); Est Glom Filt Rate - Afr Amer 120 mL/min (>60); Globulin 3.5 g/dL (2.2-4.2); Glucose 114 mg/dL (74-106); High Density Lipoprotein 45 mg/dL; Protein, Total 7.3 g/dL (6.4-8.2); Sodium Level 137 mmol/L (136-145); Triglycerides 121 mg/dL; Very Low Density Lipoprotein 24 mg/dL (5-40)
[2024-06-11 12:12] LABS: Microalbumin,Random Urine 12.7 mg/L (NO RANGE EST.); Microalbumin:Creatinine Ratio 21.3 mg/g CRE (<30 mg/g CRE)
== END | disposition home or self-care (01) ==
LOC: LAB 10:56
PROVIDERS: PCP Internal Medicine; Referring Provider Internal Medicine; Visit Provider Internal Medicine
DX: I10 Essential (primary) hypertension (principal); E78.5 Hyperlipidemia, unspecified; E03.9 Hypothyroidism, unspecified; D72.829 Elevated white blood cell count, unspecified; K76.1 Chronic passive congestion of liver; R35.0 Frequency of micturition; R73.09 Other abnormal glucose
CPT/HCPCS: 36415; 80053; 80061; 81002; 82043; 82570; 84443; 85025; 87086

== ENCOUNTER 2024-06-29 11:52 | Outpatient (RCR) | payer MEDICARE, SELFPAY ==
--- NOTE | 2024-06-29 14:08 | HP.PTEVAL_ITS ---
Patient's Visit Information Visit Information Visit Information: CHANDU TAYLOR is a 68 year old F referred to Physical Therapy by Dr. Nohelia Hubbard DO with a diagnosis of URINARY FREQUENCY. Date of Evaluation: 06/29/24 Physical Therapist: Roshni Rowell PT, Cert MDT Visit Plan Frequency: 1x/Week Duration: 2-4 Months Plan: PF THERAPY FOR STRENGTHENING, LENGTHENING/RELAXATION AND ENDURANCE TRAININ Bill. URINARY URGE AND FREQUENCY EDUCATION. HEALTHY BLADDER HABIT EDUCATION. TRAINING IN COORDINATION OF PELVIC FLOOR MUSCULATURE WITH HIP AND CORE (TRANSVERSE ABDOMINUS) MUSCULATURE. CORE STRENGTHENING. POSTURE TRAINING. JULIA LE ROM, STRETCHING AND STRENGTHENING. TRAINING IN ABDOMINAL CAVITY PRESSURE MGMT WITH ADL'S. 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 Present symptoms: FREQUENT URINATION AND UNABLE TO HOLD URINE AT TIMES. HAVING UI ALMOST EVERY DAY AND WEARING BLADDER CONTROL PADS TYPE #4. INTERMITTENT ABDOMINAL PAIN. Present since: I YEAR Is it getting better, worse or staying the same: WORSE Commenced as a result of: BLOOD PRESSURE MEDICINE. PATIENT REPORTS DR. HUBBARD IS AWARE AND SHE HAS TRIED DIFFERENT BLOOD PRESSURE MEDICATIONS BUT SHE HAS A LOT OF ALLERGIES. SHE REPORTS DECREASED INCONTINENCE WHEN SHE DECREASES HER MEDICATION. Worse: CAN NOT GO TO THE MOVIES AND TRAVEL BECAUSE OF IT. ALL ACTIVITY. Better: BED EX'S IN THE MORNING AND THROUGHOUT THE DAY THAT SHE LEARNED THROUGH PHYSICAL THERAPY FOR HER BACK PAIN AND THROUGH HER FRIENDS. Disturbed sleep: YES, GETTING UP TO URINATE 2-3 TIMES AT NIGHT. Treatment: NONE Coughing/sneezing/straining: POSITIVE FOR UI Gait: NO AD'S/NORMAL How long can you delay the need to urinate: 0 TO 10 MINUTES Prolapse (Falling out feeling): INTERMITTENTLY PATIENT STATES SHE THINKS SHE MIGHT FEEL IT. Frequency of Urination: ABOUT EVERY 30 MINUTES Ability to stop urine flow: UNABLE TO DEFLECT OR SLOW DOWN THE STREAM. Ability to initiate urine stream: YES. NEVER HAS DIFFICULTY INITIATING. Dyspareunia: N/A Bowel Incontinence: NO Unexplained weight loss: NO Imaging: NO PMH/Recent major surgery: HTN, THYROIDITIS, DM, ACDF, LUMBAR FUSION (2 BACK SX'S). Objective Objective: THIS PATIENT AMBULATES INDEP'LY INTO PHYSICAL THERAPY WITHOUT ANY AD'S OR LOB. SHE HAS DECREASED LUMBAR LORDOSIS BUT NO RELEVANT LATERAL SHIFT. Sensory deficit: JULIA LE LIGHT TOUCH SENSATION IS GROSSLY INTACT AND SYMMETRICAL ROM deficit: JULIA LE HIP ADD, ROTATOR AND HS TIGHTNESS. Motor deficit: JULIA LE STRENGTH IS GROSSLY 5/5 WITH MMT'ING EXCEPT HIPS 4/5. PELVIC FLOOR STRENGTH WITH INTERNAL MANUAL VAGINAL TESTING IS 2/5 X 3 SEC X 3 AFTER CUEING FOR PROPER TECHNIQUE. Dural Signs: NEGATIVE JULIA LE'S. Lumbar mvmt loss: flex - NIL ext - JOSE JUAN R SG - JOSE JUAN L SG - MOD PATIENT DENIES PAIN WITH LUMBAR ROM TESTING. Core strength: FAIR Palpation: NO TENDERNESS, TRIGGER POINTS OR HIGH TONE WITH INTERNAL MANUAL VAGINAL PALPATION. NO EXTERNAL PELVIC REGION TENDERNESS. FUNCTIONAL SCREEN: Incontinence Impact Questionnaire Score: 12 Urogenital Distress Inventory Score: 14 TREATMENT: DIAGNOSIS EDUCATION AND PELVIC FLOOR EDUCATION. INITIATION OF HEP QUICK FLICK KEGEL EXERCISE AND ISSUED BLADDER DIARY. CUEING NEEDED FOR PATIENT TO AVOID COMPENSATIONS DUE EX. PATIENT TOLERATED EXAM AND EX WELL WITHOUT C/O PAIN AND COMMUNICATED A GOOD UNDERSTANDING OF INSTRUCTIONS GIVEN. EDUCATED PATIENT ON LIMITATIONS OF THERAPY TO OVER COME MEDICATION EFFECTS. INSTRUCTED PATIENT TO AVOID PAIN WITH EX AND TO CONTACT PHYSICIAN WITH CONCERNS OF PAIN. Goals Goal 1:: DECREASE URINARY LEAKAGE EPISODES TO ONE OR LESS PER DAY Goal Time Frame: 6-8 Weeks Goal 2:: PATIENT WILL SUCCESSFULLY DELAY VOIDING LONG NEEDED WHEN URGENCY OCCURS TO SUCCESSFULLY MAKE IT TO THE BATHROOM. Goal Time Frame: 6-8 Weeks Goal 3:: PATIENT WILL DEMONSTRATE/COMMUNICATE 10 CONSISTENT AND CONSECUTIVE 10 SECOND PELVIC FLOOR MUSCLE CONTRACTIONS TO DEMONSTRATE IMPROVED PELVIC FLOOR ENDURANCE. Goal Time Frame: 8-12 Weeks Goal 4:: DEVELOP HEALTHY FLUID INTAKE HABITS WITH FLUID INTAKE OF ? BODY WEIGHT IN OUNCES PER DAY AND 2/3 BEING WATER. Goal Time Frame: 2-4 Weeks Goal 5:: NORMALIZE VOIDING FREQUENCEY TO EVERY 3-4 HOURS. Goal Time Frame: 4-6 Weeks Goal 6:: PATIENT WILL BE INDEP WITH A HEP/HOME INSTRUCTIONS FOR CONTINUED IMPROVEMENT ONCE FORMAL PHYSICAL THERAPY CONCLUDES. Goal Time Frame: 8-12 Weeks Rehabilitation Potential Physical Therapy Diagnosis: PELVIC FLOOR WEAKNESS, CORE WEAKNESS AND LE TIGHTNESS WITH SYMPTOMS OF URINARY LEAKNING AND INCREASED URINARY FREQUENCY THAT APPARENTLY INCREASES WITH USE OF BLOOD PRESSURE MEDICATION. Rehabilitation Potential: Fair Anticipated Interventions Patient/Client Instruction: Educate patient on: Condition, Plan of Care and Risk Factors For the Purpose of:: To improve self management Therapeutic Exercise to Include: Strength training, Endurance training, Postural training, Flexibilty training, Neuromotor development and Relaxation training For the Purpose of:: To improve muscle performance and motor function, To increase tolerance to activity/condition/position, To improve ability of physical actions for home/community/work/leisure, To increase flexibility/ROM and To improve self management Text: Thank you for the opportunity to evaluate your patient. For Medicare and Medicare HMO plans, please review the plan of care and approve it. It will need to be FAXED BACK to us at [phone] for Medicare purposes. For Medicare only, by signing this I certify the plan of care. Please let me know if there are questions or concerns regarding this plan of care. Physician Signature: __Date:
--- NOTE | 2024-08-01 16:55 | HP.PT.NRP ---
Patient Information Patient Information: CHANDU TAYLOR was seen in my office for initial evaluation on 06/29/24. The following Plan of Care was established for this patient: POC Established Initial Frequency: 1x/Week Initial Duration: 2-4 Months Anticipated Interventions Patient/Client Instruction: Educate patient on: Condition, Plan of Care and Risk Factors For the Purpose of:: To improve self management Therapeutic Exercise to Include: Strength training, Endurance training, Postural training, Flexibilty training, Neuromotor development and Relaxation training For the Purpose of:: To improve muscle performance and motor function, To increase tolerance to activity/condition/position, To improve ability of physical actions for home/community/work/leisure, To increase flexibility/ROM and To improve self management Last Seen Last Seen: This patient was last seen in our office 06/29/24. Pertinent comments regarding their Physical therapy will appear below: It was my pleasure to see this patient an initial Physical Therapy evaluation on 06/29/24. This patient has not returned to Physical Therapy for more visits and apparently cancelled all subsequent scheduled visits 07/14/24. She is appropriate to return to MD for further follow-up as needed. At this point I will be discontinuing this patient from physical therapy. I would be happy to see this patient again in the future if found appropriate by the physician. Thank you! Roshni Rowell, PT, Cert MDT
== END 2024-06-29 19:00 | disposition home or self-care (01) ==
LOC: PT 11:52
PROVIDERS: PCP Internal Medicine; Referring Provider Internal Medicine; Visit Provider Internal Medicine
DX: R32 Unspecified urinary incontinence (principal); R35.0 Frequency of micturition
CPT/HCPCS: 97162; 97530

== ENCOUNTER → 2025-03-17 | Outpatient (CLI) | payer MEDICARE, SELFPAY ==
[2025-03-17 12:38] LABS: Absolute Lymphocyte Count 1.78 X10^3/uL (0.83-4.51); Absolute Neutrophil Count 3.6 X10^3/uL (2.0-7.7); Basophil# 0.04 X10^3/uL; Basophil% 0.6 % (0-1); Eosinophil# 0.15 X10^3/uL; Eosinophils% 2.4 % (0-5); Hematocrit 41.3 % (37-47); Hemoglobin 13.9 g/dL (12.0-15.0); Lymphocyte # 1.78 X10^3/ul (0.83-4.51); Lymphocyte % 28.7 % (19-41); Mean Corp Hgb Conc 33.7 g/dL (32-36); Mean Corpuscular Hgb 32.3 pg (27.0-32.0); Mean Corpuscular Volume 95.8 fL (81-99); Mean Platelet Vol. 10.6 fl (6.2-12.0); Monocyte# 0.63 X10^3/uL; Monocyte% 10.2 % (0-10); NRBC Flagged by Analyzer 0 % (0-5); Neutrophil # 3.55 X10^3/uL (2.7-7.7); Neutrophil % 57.3 % (47-70); Platelet Count 396 K/mm3 (150-450); RBC Distribution Width CV 11.8 % (11.6-14.6); RBC Distribution Width SD 41.4 fl (35.1-43.9); Red Blood Count 4.31 M/mm3 (4.2-5.4); White Blood Count 6.2 K/mm3 (4.4-11.0)
[2025-03-17 12:58] LABS: Hemoglobin A1c 6.6 % (<=5.6)
[2025-03-17 13:23] LABS: ALB/GLOB Ratio 1.6 RATIO (0.9-2.4); AST(SGOT) 21 U/L (<=31); Alanine Aminotransfer ALT/SGPT 19 U/L (<=34); Albumin, Serum 4.3 g/dL (3.4-4.8); Alkaline Phosphatase 90 U/L (35-104); Anion Gap 11 (5-15); BUN 8 mg/dL (4-19); BUN/Creat Ratio 12.6 RATIO (10-20); Calcium,Total 9.5 mg/dL (7.6-11.0); Carbon Dioxide 25.5 mmol/L (21.0-32.0); Chloride 103 mmol/L (98-108); Cholesterol 207 mg/dL (<=200); Creatinine, Serum 0.63 mg/dL (0.70-1.20); EST Glomerular Filtration Rate 95 (>60); Globulin 2.7 g/dL (2.2-4.2); Glucose 131 mg/dL (70-99); High Density Lipoprotein 44 mg/dL; Low Density Lipoprotein Calc. 133 mg/dL; Microalbumin,Random Urine < 12.0 mg/L (NO RANGE EST.); Microalbumin:Creatinine Ratio UNABLE TO CALCULATE mg/g CRE; Potassium 4.4 mmol/L (3.3-5.1); Sodium Level 139 mmol/L (133-145); Total Bilirubin 0.56 mg/dL (0.00-1.30); Triglycerides 150 mg/dL; Very Low Density Lipoprotein 30 mg/dL (5-40); Vitamin D,25 Hydroxy 39.8 ng/mL (30-100); cholesterol:hdl ratio screen 4.73
== END | disposition home or self-care (01) ==
PROVIDERS: PCP Internal Medicine; Referring Provider Internal Medicine; Visit Provider Internal Medicine
DX: R73.09 Other abnormal glucose (principal); D72.829 Elevated white blood cell count, unspecified; M81.0 Age-related osteoporosis without current pathological fracture; E03.9 Hypothyroidism, unspecified
CPT/HCPCS: 36415; 80053; 80061; 82043; 82306; 82570; 83036; 84443; 85025

== ENCOUNTER → 2025-07-20 | Outpatient (CLI) | payer MEDICARE, SELFPAY ==
--- NOTE | 2025-07-20 09:33 | US_ITS ---
PROCEDURE: ABD LIMITED W/ ELASTOGRAPHY REASON FOR EXAM: ABD LIMITED W/ELASTOGRAPHY - FATTY LIVER COMPARISON: None. TECHNIQUE: Procedure Code: [id number] Modality: US Procedure: ABD LIMITED W/ ELASTOGRAPHY Right upper quadrant abdominal ultrasound. Abhilash ElastQ Imaging shear wave elastography for non-invasive assessment of liver tissue stiffness. Abhilash EPIQ Elite. FINDINGS: LIVER: Size: Enlarged (hepatomegaly) Length: 20.2 cm Echotexture: Diffusely echogenic suggesting fatty infiltration Contour: Normal Lesions: There is a 5.9 cm 5.5 cm x 3 cm hypoechoic nodular density along the inferior aspect of the left lobe of the liver. Correlation with a CT scan is recommended. Elastography: EQI Med: 4.3 kPa EQI Med Pawan: 1.18 m/s IQR/Med: 29.7 %* GALLBLADDER: Normal COMMON BILE DUCT: Normal . PANCREAS: Normal Visualized portions of the right kidney are unremarkable. No right upper quadrant ascites. US/ABD Limited w/ Elastography IMPRESSION: NO TO MILD HEPATIC FIBROSIS Fatty infiltration of the liver. There is a 5.9 cm 5.5 cm 3 cm hypoechoic nodular density along the inferior asp ect of the left lobe of the liver. Correlation with CT scan is recommended. Reference Values: SRU <1.37 m/s (5.7kPa): No to mild fibrosis 1.37 m/s - 2.2 m/s: Moderate to severe fibrosis >2.2 m/s (15kPa): Significant fibrosis / cirrhosis METAVIR Score F2 or higher: 1.34 m/s (5.7kPa) F3 or higher: 1.55 m/s (7.3kPa) F4: 1.80 m/s (10kPa) * If the IQR/Med is >30%, the variance in the measurements is a large and the a ccuracy of the measurement may be in question. Reading Location: [place] [id number]
== END | disposition home or self-care (01) ==
LOC: US 09:28
PROVIDERS: PCP Internal Medicine; Referring Provider Internal Medicine; Visit Provider Internal Medicine
DX: K76.0 Fatty (change of) liver, not elsewhere classified (principal)
CPT/HCPCS: 76705; 76981

== ENCOUNTER → 2025-07-29 | Outpatient (CLI) | payer MEDICARE, SELFPAY | END | disposition home or self-care (01) | PROVIDERS: PCP Internal Medicine; Referring Provider Internal Medicine; Visit Provider Internal Medicine | DX: Z12.31 Encounter for screening mammogram for malignant neoplasm of breast (principal); R93.1 Abnormal findings on diagnostic imaging of heart and coronary circulation | CPT/HCPCS: 77063; 77067; 78452; 93017; A9500; A4216; J2785 ==

== ENCOUNTER → 2025-08-25 | Outpatient (CLI) | payer MEDICARE, SELFPAY ==
--- NOTE | 2025-08-25 12:40 | CT_ITS ---
PROCEDURE: ABDOMEN WITH IV CONTRAST 08/25/2025 REASON FOR EXAM: LIVER NODULE. CT WITH CONTRAST Prior appendectomy. TECHNIQUE: Procedure Code: CTABDW Modality: CT Procedure: ABDOMEN WITH IV CONTRAST Multiplanar Sagittal and Coronal images were obtained. One or more dose reduction techniques were used (e.g., Automated exposure control, adjustment of the mA and/or kV according to patient size, use of iterative reconstruction technique. CONTRAST: Isovue-300 VOLUME: 100 mL RADIATION DOSE SUMMARY: CTDlvol: 10.6 mGy DLP: 625.51 mGycm COMPARISON: Prior sonogram of the right upper quadrant dated July 20, 2025. FINDINGS: Lung bases: The lung bases are clear. Liver: Diffuse fatty infiltration. No focal lesion is seen. The finding on the sonogram may have represented fluid-filled 2nd portion of the duodenum. Gallbladder: Unremarkable. Spleen: Normal size. Pancreas: Focal calcifications in the head of the pancreas. Adrenals: Unremarkable Kidneys: Normal renal sizes. No hydronephrosis. Bowel: Normal gas pattern. Lymph nodes: Unremarkable. Vasculature: Atherosclerotic plaque formation. Peritoneum / Retroperitoneum: Unremarkable Bones: Degenerative changes of the spine. CT/Abdomen WITH IV Contrast IMPRESSION: Fatty infiltration of the liver. No focal lesion is seen. Focal calcification in the head of the pancreas. Reading Location: [id number]
[2025-08-25 13:28] LABS: CREATININE FINGERSTICK < 1.0 mg/dL (0.55-1.02); EGFR FINGERSTICK > 60.0000 mL/min (>60)
== END | disposition home or self-care (01) ==
LOC: CT 12:35
PROVIDERS: PCP Internal Medicine; Referring Provider Internal Medicine; Visit Provider Internal Medicine
DX: K76.89 Other specified diseases of liver (principal)
CPT/HCPCS: 74160; Q9967

== ENCOUNTER → 2025-09-16 | Outpatient (CLI) | payer MEDICARE, SELFPAY ==
[2025-09-16 11:30] LABS: Mucous, Urine 0 SEEN /hpf (<or=2+); Red Blood Cells-Urine 0 SEEN /hpf (0-5); Squamous Epithelial Cells - UA 0 SEEN /hpf (5-10)
[2025-09-16 11:56] LABS: Hematocrit 40.5 % (37-47); Hemoglobin 13.7 g/dL (12.0-15.0); Immature Granulocytes Count 0.020 X10^3/uL (0.0-0.0); Mean Corp Hgb Conc 33.8 g/dL (32-36); Mean Corpuscular Volume 94.6 fL (81-99); Mean Platelet Vol. 10.0 fl (6.2-12.0); NRBC Flagged by Analyzer 0 % (0-5); Platelet Count 403 K/mm3 (150-450); RBC Distribution Width CV 12.2 % (11.6-14.6); RBC Distribution Width SD 42.1 fl (35.1-43.9); Red Blood Count 4.28 M/mm3 (4.2-5.4); White Blood Count 5.9 K/mm3 (4.4-11.0)
[2025-09-16 12:52] LABS: Color, Urine Yellow (Yellow); Glucose, Dipstick Normal (Normal); Ketone-Dipstick Negative (Negative); Leukocyte Esterase-Dipstick Negative /ul (Negative); Nitrite-Dipstick Negative (Negative); Occult Blood-Urine Negative /ul (Negative); Protein-Dipstick 15 mg/dl (Negative); Specific Gravity, Urine 1.010 (1.002-1.030); Urine Bilirubin Dipstick Negative (Negative)
[2025-09-16 12:56] LABS: AST(SGOT) 17 U/L (<=31); Alanine Aminotransfer ALT/SGPT 17 U/L (<=34); Albumin, Serum 4.4 g/dL (3.4-4.8); Alkaline Phosphatase 93 U/L (35-104); Anion Gap 11 (5-15); BUN 16 mg/dL (4-19); BUN/Creat Ratio 24.9 RATIO (10-20); Calcium,Total 9.8 mg/dL (7.6-11.0); Carbon Dioxide 24.1 mmol/L (21.0-32.0); Chloride 103 mmol/L (98-108); Cholesterol 197 mg/dL (<=200); Globulin 2.7 g/dL (2.2-4.2); Glucose 139 mg/dL (70-99); Low Density Lipoprotein Calc. 130 mg/dL; Potassium 4.4 mmol/L (3.3-5.1); Triglycerides 108 mg/dL; Very Low Density Lipoprotein 22 mg/dL (5-40); cholesterol:hdl ratio screen 4.17
[2025-09-16 13:34] LABS: Creatinine, Urine (random) 66.20 mg/dL (28.00-217.00); Microalbumin,Random Urine < 12.0 mg/L (<20 mg/L)
== END | disposition home or self-care (01) ==
LOC: LAB 11:23
PROVIDERS: PCP Internal Medicine; Referring Provider Internal Medicine; Visit Provider Internal Medicine
DX: E11.9 Type 2 diabetes mellitus without complications (principal); E78.5 Hyperlipidemia, unspecified; E03.9 Hypothyroidism, unspecified
CPT/HCPCS: 36415; 80053; 80061; 81001; 82043; 82570; 84443; 85025

== ENCOUNTER → 2025-09-21 | Outpatient (CLI) | payer MEDICARE, SELFPAY ==
[2025-09-21 16:09] LABS: Hepatitis C Antibody Nonreactive (Nonreactive)
== END | disposition home or self-care (01) ==
LOC: CIMLAB 14:15
PROVIDERS: PCP Internal Medicine; Referring Provider Internal Medicine; Visit Provider Internal Medicine
DX: N18.1 Chronic kidney disease, stage 1 (principal); Z11.59 Encounter for screening for other viral diseases
CPT/HCPCS: 36415; 86803